=== PATIENT | male | born 1940 | race Caucasian/White ===

== ENCOUNTER 2018-03-31 06:35 | Emergency (ER) | payer OTHER ==
[2018-03-31 07:11] LABS: Absolute Lymphocytes (CBC) 1.4 K/uL (0.7-4.9); Absolute Monocytes 0.5 K/uL (0.1-1.3); Absolute Neutrophil 3.5 K/uL (1.8-8.0); Basophils % 0.5 % (0-1.3); Hematocrit 42.5 % (39.6-49.0); Lymphocytes % 23.4 % (15.3-44.8); MCH 31.4 pg (27.0-35.0); MPV 9.5 fL (7.6-11.3); Monocytes % 8.8 % (3.3-12.3); RBC Red Blood Cell Count 4.68 M/uL (4.33-5.43)
[2018-03-31 07:18] LABS: Potassium 4.8 mmol/L (3.5-5.1)
--- NOTE | 2018-03-31 08:36 | RAD REPORT ---
EXAM DESCRIPTION: CT - Stone Protocol - 03/31/2018 7:08 am CLINICAL HISTORY: Abdominal pain. Dysuria/hematuria COMPARISON: 2014 TECHNIQUE: Computed axial tomography of the abdomen pelvis was obtained without oral or IV contrast. Lack of IV and oral contrast limits evaluation of solid organs, bowel, and vessels. Coronal reformat oriana images were obtained and reviewed. All CT scans are performed using dose optimization technique as appropriate and may include automated exposure control or mA/KV adjustment according to patient size. FINDINGS: A renal calculus is not seen. An ureteral calculus is not noted. A bladder calculus is not present. An 18 millimeter cyst extends off of the left kidney. It contains calcification posteriorly . The bladder is incompletely distended and not well evaluated. The liver, spleen, pancreas and adrenals appear grossly normal There is no evidence of diverticulitis. The appendix appears normal A moderate amount of stool is present throughout the colon. Spondylosis involves lumbar spine resulting in spinal stenosis. Atherosclerotic changes involve the a rteries. A small umbilical hernia is present. Postsurgical changes involve the bowel. The gallbladder has been removed The prostate gland is moderately enlarged. Bilateral inguinal hernias contain fat IMPRESSION: Negative for a genitourinary calculus
[2018-03-31] MEDS ORDERED: CEFTRIAXONE/SWI 1gm 1 GM/10 ML SYR ONE (09:01)
[2018-03-31] MEDS ORDERED: PHENAZOPYRIDINE 100MG TAB PO ONE (09:01)
[2018-03-31 09:30] LABS: Urine Blood 3+ (NEG); Urine Glucose NEGATIVE (NEG); Urine Protein 3+ (NEG); Urine Specific Gravity 1.015 (1.005-1.030); Urine pH >8.5 (5.0-7.0)
--- NOTE | 2018-03-31 09:30 | ER ---
Nurse's Notes [facility] Name: Chan White Age: 78 yrs Sex: Male : 1940 Arrival Date: 03/31/2018 Time: 06:35 Bed 4 Private MD: Diagnosis: Urinary tract infection, site not specified Presentation: 03/31 06:46 Presenting complaint: Patient states: "I woke up this morning and I am having pain and jd3 difficulty urinating. I also notice some frequency and some blood tinged color urine.". Transition of care: patient was not received from another setting of care. Onset of symptoms was March 31, 2018. Risk Assessment: Do you want to hurt yourself or someone else? Patient reports no desire to harm self or others. Initial Sepsis Screen: Does the patient meet any 2 criteria? No. Patient's initial sepsis screen is negative. Does the patient have a suspected source of infection? No. Patient's initial sepsis screen is negative. Care prior to arrival: None. 06:46 Method Of Arrival: Ambulatory jd3 06:46 Acuity: RENY 3 jd3 Historical: - Allergies: 07:01 Morphine; jd3 07:01 PENICILLINS; jd3 - Home Meds: 07:01 allopurinol 300 mg Oral tab 1 tab once daily [Active]; amlodipine 5 mg tab 1 tab once jd3 daily [Active]; aspirin 325 mg Oral tab 1 tab once daily [Active]; atorvastatin 20 mg Oral tab 1 tab once daily [Active]; clopidogrel 75 mg Oral tab 1 tab once daily [Active]; Co Q-10 200 mg Oral cap twice a day [Active]; Fish Oil 100-160-1,000 mg Oral cap daily [Active]; furosemide 20 mg Oral tab 1 tab once daily [Active]; glucosamine-chondroitin 621-327-83-3 mg Oral cap daily [Active]; isosorbide dinitrate 60 mg Oral TbER 1 cap 2 times per day [Active]; levothyroxine 100 mcg tab 1 tab once daily [Active]; lisinopril 20 mg Oral tab 1 tab once daily [Active]; meloxicam 15 mg Oral tab 1 tab once daily [Active]; pantoprazole 40 mg Oral TbEC 1 tab once daily [Active]; Nitrostat 0.4 mg SL subl 1 tab [Active]; Zyrtec 10 mg Oral tab 1 tab once daily [Active]; vitamin P52-rpfap acid 2000 mcg Oral tab once daily [Active]; metoprolol succinate 25 mg oral Tb24 0.5 tab daily [Active]; - PMHx: 07:01 carpal tunnel; Cholelithiasis; doudenal ulcer; Hernia; knee surgery; stroke; TIA; jd3 - PSHx: 07:01 laminectomy; Carpal Tunnel Repair; Angioplasty; coronary bypass; jd3 - Immunization history:: Adult Immunizations up to date. - Social history:: Smoking status: Patient/guardian denies using tobacco, the patient reports quitting approximately 44 years ago. - Ebola Screening: : Patient negative for fever greater than or equal to 101.5 degrees Fahrenheit, and additional compatible Ebola Virus Disease symptoms. Screenin:52 Abuse screen: Denies threats or abuse. Nutritional screening: No deficits noted. jd3 Tuberculosis screening: No symptoms or risk factors identified. Fall Risk Ambulatory Aid- None/Bed Rest/Nurse Assist (0 pts). Gait- Normal/Bed Rest/Wheelchair (0 pts) Mental Status- Oriented to own ability (0 pts). Total Durham Fall Scale indicates No Risk (0-24 pts). Assessment: 06:49 General: Appears uncomfortable, Behavior is calm, cooperative, appropriate for age. jd3 Pain: Quality of pain is described as pain with urination. Neuro: Level of Consciousness is awake, alert, obeys commands, Oriented to person, place, time, situation, Appropriate for age. Cardiovascular: Capillary refill < 3 seconds Patient's skin is warm and dry. Respiratory: Airway is patent Respiratory effort is even, unlabored, Respiratory pattern is regular, symmetrical. GI: Abdomen is round non-distended, Patient currently denies abdominal pain. : Urine is blood tinged, Reports burning with urination, inability to void, urinary frequency. EENT: No signs and/or symptoms were reported regarding the EENT system. Derm: Skin is intact, Skin is dry, Skin is normal, Skin temperature is warm. Musculoskeletal: Circulation, motion, and sensation intact. Range of motion: intact in all extremities. 07:41 Reassessment: Patient appears in no apparent distress at this time. Patient and/or ph family updated on plan of care and expected duration. Pain level reassessed. Patient is alert, oriented x 3, equal unlabored respirations, skin warm/dry/pink. Pt resting quietly, awaiting lab results, VSS, will continue to monitor. 08:40 Reassessment: Patient appears in no apparent distress at this time. Patient and/or ph family updated on plan of care and expected duration. Pain level reassessed. Patient is alert, oriented x 3, equal unlabored respirations, skin warm/dry/pink. Pt resting quietly, ERP at bedside to speak w/ pt about test results. 09:33 Reassessment: Patient appears in no apparent distress at this time. Patient and/or ph family updated on plan of care and expected duration. Pain level reassessed. Patient is alert, oriented x 3, equal unlabored respirations, skin warm/dry/pink. Pt d/c home w/ prescriptions. Vital Signs: 06:48 BP 148 / 97; Pulse 92; Resp 17 S; Temp 97.7(O); Pulse Ox 98% on R/A; Weight 102.06 kg jd3 (R); Height 5 ft. 10 in. (177.80 cm) (R); Pain 0/10; 07:45 BP 133 / 82; Pulse 78; Resp 16; Pulse Ox 99% on R/A; ph 08:41 BP 123 / 78; Pulse 57; Resp 18; Temp 97.5; Pulse Ox 98% on R/A; ph 09:37 BP 127 / 76; Pulse 58; Resp 18; Temp 97.8; Pulse Ox 99% on R/A; ph 06:48 Body Mass Index 32.28 (102.06 kg, 177.80 cm) jd3 ED Course: 06:35 Patient arrived in ED. ds1 06:46 [facility] Palmer [facility]C [facility] kb 06:46 Baron Mike MD is Attending Physician. kb 06:46 Taco Lion RN is Primary Nurse. jd3 06:48 Triage completed. jd3 06:48 Arm band placed on. jd3 06:52 Patient has correct armband on for positive identification. Bed in low position. Call jd3 light in reach. Side rails up X 1. 06:59 Inserted saline lock: 20 gauge in right antecubital area, using aseptic technique. tl2 Blood collected. 07:07 CT completed. Patient tolerated procedure well. Patient moved to CT via wheelchair. jg6 Patient moved back from CT. 07:08 CT Stone Protocol In Process Unspecified. EDMS 09:36 No provider procedures requiring assistance completed. IV discontinued, intact, ph bleeding controlled, No redness/swelling at site. Pressure dressing applied. Administered Medications: 09:02 Drug: Rocephin - (cefTRIAXone) 1 grams Route: IVPB; Infused Over: 30 mins; Site: right ph antecubital; 09:38 Follow up: Response: No adverse reaction; IV Status: Completed infusion ph 09:02 Drug: Pyridium 200 mg Route: PO; ph 09:38 Follow up: Response: No adverse reaction ph Outcome: :30 Discharge ordered by MD. kb 09:37 Discharged to home ambulatory, with significant other. ph 09:37 Condition: good 09:37 Discharge instructions given to patient, Instructed on discharge instructions, follow up and referral plans. medication usage, Demonstrated understanding of instructions, follow-up care, medications, Prescriptions given X 2. 09:39 Patient left the ED. ph Addendum: 04/03/2018 15:32 Addendum: Culture Results: Positive urine culture. No further action required. Bacteria i w sensitive to prescribed antibiotic. Signatures: Dispatcher [employer] EDMS Anna Palmer, COREMAKER MACHINE-C COREMAKER MACHINE-Sade Sanderson ds1 Janice Santillan, NICOLE RIVERA iw Anahy Barnard RN RN ph Knox, Taylor, RN RN tl2 [employer] RN RN jd3 Remi, Maribell jg6
--- NOTE | 2018-03-31 09:30 | EDPHYS ---
Physician Documentation [facility] Name: Chan White Age: 78 yrs Sex: Male : 1940 Arrival Date: 03/31/2018 Time: 06:35 Bed 4 Private MD: ED Physician Baron Mike HPI: 03/31 08:51 This 78 yrs old Male presents to ER via Ambulatory with complaints of Urinary kb Frequency. 08:51 The patient presents with urinary symptoms, dysuria, urinary frequency, hematuria. kb Onset: The symptoms/episode began/occurred this morning. Modifying factors: The symptoms are alleviated by nothing, the symptoms are aggravated by urinating. Associated signs and symptoms: Pertinent positives: dysuria, hematuria, Pertinent negatives: abdominal pain, constipation, diarrhea, fever, nausea, vomiting. Severity of symptoms: At their worst the symptoms were moderate, in the emergency department the symptoms are unchanged. The patient has not experienced similar symptoms in the past. The patient has not recently seen a physician. Historical: - Allergies: 07:01 Morphine; jd3 07:01 PENICILLINS; jd3 - Home Meds: 07:01 allopurinol 300 mg Oral tab 1 tab once daily [Active]; amlodipine 5 mg tab 1 tab once jd3 daily [Active]; aspirin 325 mg Oral tab 1 tab once daily [Active]; atorvastatin 20 mg Oral tab 1 tab once daily [Active]; clopidogrel 75 mg Oral tab 1 tab once daily [Active]; Co Q-10 200 mg Oral cap twice a day [Active]; Fish Oil 100-160-1,000 mg Oral cap daily [Active]; furosemide 20 mg Oral tab 1 tab once daily [Active]; glucosamine-chondroitin 072-617-06-3 mg Oral cap daily [Active]; isosorbide dinitrate 60 mg Oral TbER 1 cap 2 times per day [Active]; levothyroxine 100 mcg tab 1 tab once daily [Active]; lisinopril 20 mg Oral tab 1 tab once daily [Active]; meloxicam 15 mg Oral tab 1 tab once daily [Active]; pantoprazole 40 mg Oral TbEC 1 tab once daily [Active]; Nitrostat 0.4 mg SL subl 1 tab [Active]; Zyrtec 10 mg Oral tab 1 tab once daily [Active]; vitamin E02-hoklo acid 2000 mcg Oral tab once daily [Active]; metoprolol succinate 25 mg oral Tb24 0.5 tab daily [Active]; - PMHx: 07:01 carpal tunnel; Cholelithiasis; doudenal ulcer; Hernia; knee surgery; stroke; TIA; jd3 - PSHx: 07:01 laminectomy; Carpal Tunnel Repair; Angioplasty; coronary bypass; jd3 - Immunization history:: Adult Immunizations up to date. - Social history:: Smoking status: Patient/guardian denies using tobacco, the patient reports quitting approximately 44 years ago. - Ebola Screening: : Patient negative for fever greater than or equal to 101.5 degrees Fahrenheit, and additional compatible Ebola Virus Disease symptoms. ROS: 06:59 Constitutional: Negative for fever, chills, and weight loss, Cardiovascular: Negative kb for chest pain, palpitations, and edema, Respiratory: Negative for shortness of breath, cough, wheezing, and pleuritic chest pain, Abdomen/GI: Negative for abdominal pain, nausea, vomiting, diarrhea, and constipation, MS/Extremity: Negative for injury and deformity, Skin: Negative for injury, rash, and discoloration, Neuro: Negative for headache, weakness, numbness, tingling, and seizure. 06:59 : Positive for urinary symptoms, urinary frequency, small amounts, hematuria, burning with urination, Negative for pelvic pain, flank pain, foul smelling urine, penile discharge, penile pain, testicular pain Exam: 06:59 Constitutional: This is a well developed, well nourished patient who is awake, alert, kb and in no acute distress. Head/Face: Normocephalic, atraumatic. Chest/axilla: Normal chest wall appearance and motion. Nontender with no deformity. No lesions are appreciated. Cardiovascular: Regular rate and rhythm with a normal S1 and S2. No gallops, murmurs, or rubs. Normal PMI, no JVD. No pulse deficits. Respiratory: Lungs have equal breath sounds bilaterally, clear to auscultation and percussion. No rales, rhonchi or wheezes noted. No increased work of breathing, no retractions or nasal flaring. Abdomen/GI: Soft, non-tender, with normal bowel sounds. No distension or tympany. No guarding or rebound. No evidence of tenderness throughout. Skin: Warm, dry with normal turgor. Normal color with no rashes, no lesions, and no evidence of cellulitis. MS/ Extremity: Pulses equal, no cyanosis. Neurovascular intact. Full, normal range of motion. Neuro: Awake and alert, GCS 15, oriented to person, place, time, and situation. Cranial nerves II-XII grossly intact. Motor strength 5/5 in all extremities. Sensory grossly intact. Cerebellar exam normal. Normal gait. Vital Signs: 06:48 BP 148 / 97; Pulse 92; Resp 17 S; Temp 97.7(O); Pulse Ox 98% on R/A; Weight 102.06 kg jd3 (R); Height 5 ft. 10 in. (177.80 cm) (R); Pain 0/10; 07:45 BP 133 / 82; Pulse 78; Resp 16; Pulse Ox 99% on R/A; ph 08:41 BP 123 / 78; Pulse 57; Resp 18; Temp 97.5; Pulse Ox 98% on R/A; ph 09:37 BP 127 / 76; Pulse 58; Resp 18; Temp 97.8; Pulse Ox 99% on R/A; ph 06:48 Body Mass Index 32.28 (102.06 kg, 177.80 cm) jd3 MDM: 06:46 Patient medically screened. kb 06:58 Data reviewed: vital signs, nurses notes. Data interpreted: Pulse oximetry: on room air kb is 98 %. Interpretation: normal. 08:53 Counseling: I had a detailed discussion with the patient and/or guardian regarding: the kb historical points, exam findings, and any diagnostic results supporting the discharge/admit diagnosis, lab results, radiology results, the need for outpatient follow up, a urologist, to return to the emergency department if symptoms worsen or persist or if there are any questions or concerns that arise at home. 09:36 ED course: Pt educated to follow up with Dr Feliz next week. Verbal understanding henry received. . 03/31 06:43 Order name: Urine Microscopic Only; Complete Time: 09:33 gs 03/31 06:48 Order name: CBC with Diff; Complete Time: 07:13 kb 03/31 06:48 Order name: Basic Metabolic Panel; Complete Time: 07:18 kb 03/31 06:48 Order name: CT Stone Protocol; Complete Time: 08:38 kb 03/31 07:25 Order name: Urine Dipstick--Ancillary (enter results); Complete Time: 09:33 mb4 03/31 08:08 Order name: Urine Culture kb 03/31 06:43 Order name: Urine Dipstick-Ancillary (obtain specimen); Complete Time: 06:59 Administered Medications: 09:02 Drug: Rocephin - (cefTRIAXone) 1 grams Route: IVPB; Infused Over: 30 mins; Site: right ph antecubital; 09:38 Follow up: Response: No adverse reaction; IV Status: Completed infusion ph 09:02 Drug: Pyridium 200 mg Route: PO; ph 09:38 Follow up: Response: No adverse reaction ph Disposition: 03/31/18 09:30 Discharged to Home. Impression: Urinary tract infection, site not specified. - Condition is Stable. - Discharge Instructions: Urinary Tract Infection, Adult, [id number]. - Prescriptions for Pyridium 200 mg Oral Tablet - take 1 tablet by ORAL route every 8 hours for 3 days; 9 tablet. Macrobid 100 mg Oral Capsule - take 1 capsule by ORAL route every 12 hours for 10 days; 20 capsule. - Medication Reconciliation Form, Thank You Letter, Antibiotic Education, Prescription Opioid Use form. - Follow up: Emergency Department; When: As needed; Reason: Worsening of condition. Follow up: Private Physician; When: 2 - 3 days; Reason: Recheck today's complaints, Continuance of care, Re-evaluation by your physician. Addendum: 04/03/2018 17:25 Co-signature as Attending Physician, Baron Mike MD. g s Signatures: Dispatcher [employer] [facility] Anna Palmer, DIGITAL OPERATIONS ANALYST-C DIGITAL OPERATIONS ANALYST-Anahy Whitlock RN RN Baron Mike MD MD [employer] RN RN jd3 Corrections: (The following items were deleted from the chart) 03/31 09:39 09:30 03/31/2018 09:30 Discharged to Home. Impression: Urinary tract infection, site ph not specified. Condition is Stable. Discharge Instructions: Urinary Tract Infection, Adult, [id number]. Prescriptions for Pyridium 200 mg Oral Tablet - take 1 tablet by ORAL route every 8 hours for 3 days; 9 tablet, Macrobid 100 mg Oral Capsule - take 1 capsule by ORAL route every 12 hours for 10 days; 20 capsule. and Forms are Medication Reconciliation Form, Thank You Letter, Antibiotic Education, Prescription Opioid Use. Follow up: Emergency Department; When: As needed; Reason: Worsening of condition. Follow up: Private Physician; When: 2 - 3 days; Reason: Recheck today's complaints, Continuance of care, Re-evaluation by your physician. kb
[2018-03-31 09:31] LABS: Urine Bacteria 20-50 /HPF (NONE SEEN); Urine RBC >50 /HPF (NONE SEEN)
[2018-03-31 09:32] LABS: Urine Culture Reflex Order REFLEXED
[2018-03-31 09:48] VITALS: BP 127/76; TEMP 97.8; O2SAT 99
== END 2018-03-31 09:39 | disposition home or self-care (01) ==
LOC: ER 06:35
DX: N39.0 Urinary tract infection, site not specified (principal); Z88.5 Allergy status to narcotic agent; Z88.0 Allergy status to penicillin; Z79.02 Long term (current) use of antithrombotics/antiplatelets; Z86.73 Personal history of transient ischemic attack (TIA), and cerebral infarction without residual deficits; Z79.82 Long term (current) use of aspirin; Z95.1 Presence of aortocoronary bypass graft; Z98.61 Coronary angioplasty status
CPT/HCPCS: 36415; 74176; 76377; 80048; 85025; 87077; 87086; 87088; 87186; 96365; 99284; J0696; 81003; 81015

== ENCOUNTER 2019-07-22 13:36 | Emergency (ER) | payer OTHER ==
--- OUTSIDE RECORDS SUMMARY | 2019-07-22 13:38 | XMS REPORT ---
:1940 [facility] Address [address] [place] [address] [address] [place] [address] Care Team Providers Name Role Phone Unavailable Unavailable Unavailable Problems This patient has no known problems. Allergies, Adverse Reactions, Alerts This patient has no known allergies or adverse reactions. Medications This patient has no known medications.
--- OUTSIDE RECORDS SUMMARY | 2019-07-22 13:38 | XMS REPORT | Summary of Care ---
:1940 Author Organization [facility] - [facility] Address [address] [place] [id number] Care Team Providers Name Role Phone Chan Pires MD Primary Care Provider Reason for Visit Auth/Cert Status Reason Specialty Diagnoses / Procedures Referred By Contact Referred To Contact Surgery Diagnoses Combined forms of age-related cataract, left eye Cataract of the L eye Adc Pre/Pacu/Post Procedures ID REMV CATARACT EXTRACAP,INSERT LENS PHACOEMULSIFICATION OF CATARACT WITH INTRAOCULAR LENS IMPLANT [address] [place] [address] [place] [address] Encounter Details Date Type Department Care Team Description 02/28/2019 Hospital Encounter [facility] MD [address] [place] [address] [place] [address] [place], [place] [phone] Allergies Active Allergy Reactions Severity Noted Date Comments Morphine Unknown - See comments, 06/04/2016 Pain in area of liver Other - See comments Penicillins Unknown - See comments 08/11/2018 Swelling at injection site that lasted for several days documented as of this encounter (statuses as of 03/06/2019) Medications Medication Sig Dispensed Refills Start Date End Date Status allopurinol 300 mg Take 300 mg by 0 Active tablet mouth daily. amLODIPine 5 mg tablet Take 5 mg by 0 Active mouth daily. aspirin 325 mg tablet Take 325 mg by 0 Active mouth daily. atorvastatin 20 mg Take 20 mg by 0 Active tablet mouth at bedtime. clopidogrel 75 mg Take 75 mg by 0 Active tablet mouth daily. Coenzyme Q10 200 mg Cap Take 1 capsule by 0 Active mouth 2 (two) times daily. omega 9-zax-qkc-fish Take 2 capsules 0 Active oil (FISH OIL) by mouth 2 (two) 100-160-1,000 mg Cap times daily. furosemide 20 mg tablet Take 20 mg by 0 Active mouth daily. isosorbide mononitrate Take 60 mg by 0 Active 60 mg 24 hr tablet mouth daily. levothyroxine sodium Take 100 mcg by 0 Active (LEVOTHYROXINE ORAL) mouth daily. lisinopril 20 mg tablet Take 20 mg by 0 Active mouth daily. MECOBALAMIN, VITAMIN Take 1,000 mcg by 0 Active B12, ORAL mouth daily. meloxicam 15 mg tablet Take 15 mg by 0 Active mouth daily. metoprolol succinate XL Take 25 mg by 0 Active 25 mg 24 hr tablet mouth daily. nitroglycerin 0.4 mg/hr Apply 1 Patch to 0 Active patch skin daily. pantoprazole sodium Take 40 mg by 0 Active (PANTOPRAZOLE ORAL) mouth daily. nitroglycerin 0.[address] 0.4 mg 0 Active sublingual tablet under the tongue every 5 (five) minutes as needed for Chest pain. glucosam sul Na/chondr Take 1 tablet by 0 Active (GLUCOSAMINE-CHONDROITI mouth 2 (two) N 3X ORAL) times daily. documented as of this encounter (statuses as of 03/06/2019) Active Problems Problem Noted Date Cataract documented as of this encounter (statuses as of 03/06/2019) Social History Tobacco Use Types Packs/Day Years Used Date Former Smoker Cigarettes 1 40 Smokeless Tobacco: Never Used Comments: Quit 40 years ago Alcohol Use Drinks/Week oz/Week Comments Yes Occasional Drinker Sex Assigned at Date Recorded Not on file Job Start Date Occupation Industry Not on file Not on file Not on file Travel History Travel Start Travel End No recent travel history available. documented as of this encounter Last Filed Vital Signs Vital Sign Reading Time Taken Comments Blood Pressure 131/77 02/28/2019 12:10 PM CDT Pulse 54 02/28/2019 12:10 PM CDT Temperature 36.4 C (97.5 F) 02/28/2019 12:10 PM CDT Respiratory Rate 16 02/28/2019 12:10 PM CDT Oxygen Saturation 97% 02/28/2019 12:10 PM CDT Inhaled Oxygen Concentration - - Weight 104.3 kg (230 lb) 02/26/2019 2:00 PM CDT Height 177.8 cm (5' 10") 02/26/2019 2:00 PM CDT Body Mass Index 33 02/26/2019 2:00 PM CDT documented in this encounter Discharge Instructions Jelena Singh RN - 02/28/2019CATARACT DISCHARGE INSTRUCTIONS 1. DO NOT Remove the eye patch. Leave on until you post-operative visit tomorrow. Keep it dry. 2. Activities as tolerated 3. Please no heavy lifting, and do not drive or operate machinery until you are seen by a doctor on your first post op day. 4. Your depth perception may be off, so walk a little slower. Be careful on steps or stairs and uneven ground and go slower around corners. 5. Most likely your eye will stay numb until tomorrow and you should not experience any extreme pain. However, if you should have bad pain or nausea, please call the doctor's office or hospital grinder operator automatic to get in touch with doctor. 6. For mild discomfort or a headache, you may take Tylenol, Aspirin, or Ibuprofen (in not allergic). 7. You may resume your pre-operative diet. 8. If you have any further questions or concerns, please call the office or hospital grinder operator automatic to getin touch with the doctor. documented in this encounter Plan of Treatment Health Maintenance Due Date Last Done Comments DTaP,Tdap,and Td Vaccines (1 - Tdap) 01/26/1960 Zoster Recombinant Vaccine (SHINGRIX) (1 of 2) 1991 LUNG CANCER SCREEN: Recommended for age 55-80 with 30 + 01/26/1996 pack year history Medicare Wellness Visit 2006 PNEUMOCOCCAL VACCINES 65+ (1 of 2 - PCV13) 2006 INFLUENZA VACCINE 04/08/2019 documented as of this encounter Implants Implanted Type Area Planer Stone Device Shelf Model / Identifier Expiration Date Serial / Lot Lens, Dominic #[id number] - [id number] LENS Right: Dominic 08/07/2023 [id number] / Implanted: Qty: 1 on 12/27/2018 by Dylan Chester MD at [facility] Eye [id number] / N/A Lens, Dominic #[id number] - [id number] LENS Left: Eye Dominic 10/06/2023 [id number] / Implanted: Qty: 1 on 02/28/2019 by Dylna Chester MD at [facility] [id number] / N/A documented as of this encounter Procedures Procedure Name Priority Date/Time Associated Comments Diagnosis PHACOEMULSIFICATION OF Level 5 (greater 02/28/2019 11:02 SAME CATARACT WITH INTRAOCULAR than 5 days) AM CDT LENS IMPLANT DAY SURGERY - ADC Routine 02/28/2019 12:01 AM CDT PATIENT QUESTIONNAIRE Routine 02/28/2019 12:01 AM CDT CONSENT/REFUSAL FOR Routine 02/26/2019 3:01 DIAGNOSIS AND TREATMENT PM CDT CONSENT/REFUSAL FOR Routine 02/26/2019 2:59 DIAGNOSIS AND TREATMENT PM CDT ASSIGNMENT OF BENEFITS Routine 02/26/2019 2:59 PM CDT ASSIGNMENT OF BENEFITS Routine 02/26/2019 2:58 PM CDT PHYSICIAN ORDERS Routine 02/26/2019 12:01 AM CDT documented in this encounter Results Not on filedocumented in this encounter Visit Diagnoses Diagnosis Cataract, nuclear sclerotic senile, left - Primary documented in this encounter Administered Medications Medication Order MAR Action Action Date Dose Rate Site balanced salt irrig soln Given 02/28/2019 11:30 AM CDT 500 mL Left Eye comb1 (BSS PLUS) ophthalmic solution 500 mL bag PRN, Starting Tue02/28/19 at 1023, Until Discontinued, Routine, Intra-op bupivacaine (preserv free) (SENSORCAINE Given 02/28/2019 11:20 AM CDT 5 mL Left Eye MPF) 0.75 % (7.5 mg/mL) injection PRN, Starting Tue02/28/19 at 1023, Until Discontinued, Routine, Intra-op carbachol (MIOSTAT) 0.01 % Given 02/28/2019 11:35 AM CDT 0.5 mL Left Eye intraocular injection PRN, Starting Tue02/28/19 at 1024, Until Discontinued, Routine, Intra-op ceFAZolin (ANCEF) injection Given 02/28/2019 11:42 AM CDT 0.02 mg Left Eye PRN, Starting Tue02/28/19 at 1024, Until Discontinued, URIEL, Intra-op dexamethasone (DECADRON PHOSPHATE) Given 02/28/2019 11:42 AM CDT 0.3 mL Left Eye injection PRN, Starting Tue02/28/19 at 1024, Until Discontinued, Routine, Intra-op DUOVISC (DUOVISC VISCO ELASTIC) 3 %-4 Given 02/28/2019 11:40 AM CDT 1 Kit Left Eye %(0.5 mL) 1 % (0.55 mL) intraocular injection PRN, Starting Tue02/28/19 at 1024, Until Discontinued, Routine, Intra-op EPINEPHrine 1:1,000 (1 mg/mL) Given 02/28/2019 11:30 AM CDT 0.5 mg Left Eye (ADRENALIN) injection PRN, Starting Tue02/28/19 at 1024, Until Discontinued, Routine, Intra-op gentamicin injection Given 02/28/2019 11:42 AM CDT 0.2 mL Left Eye PRN, Starting Tue02/28/19 at 1025, Until Discontinued, URIEL, Intra-op Hyaluronidase, Human Recomb. Given 02/28/2019 11:20 AM CDT 150 Units Left Eye (HYLENEX) injection PRN, Starting Tue02/28/19 at 1025, Until Discontinued, Routine, Intra-op lidocaine-epinephrine (XYLOCAINE Given 02/28/2019 11:20 AM CDT 5 mL Left Eye W/EPINEPHRINE) 2 %-1:200,000 injection PRN, Starting Tue02/28/19 at 1026, Until Discontinued, Routine, Intra-op fsufdeki-twdekxvfr-pctqffqxouton Given 02/28/2019 11:42 0.5 Inches Left Eye (MAXITROL) 3.5 mg/g-10,000 unit/g-0.1 % AM CDT ophthalmic ointment PRN, Starting Tue02/28/19 at 1027, Until Discontinued, Routine, Intra-op sodium chloride (NS) injection Given 02/28/2019 11:42 AM CDT 10 mL Left Eye PRN, Starting Tue02/28/19 at 1027, Until Discontinued, Routine, Intra-op water for irrigation irrigation Given 02/28/2019 11:25 AM CDT 30 mL Left Eye solution PRN, Starting Tue02/28/19 at 1027, Until Discontinued, Routine, Intra-op Medication Order MAR Action Action Date Dose Rate Site lactated ringers IV infusion New Bag 02/28/2019 9:22 AM CDT 500 mL 20 mL/ hr 500 mL at 20 mL/hr, 500 mL, IV Infusion, ONCE, 1 dose, Tue02/28/19 at 0915, Routine, DSU Pre-op mydriatic #5 ophthalmic solution 0.5 mL Given 02/28/2019 10:35 AM CDT 0.5 mL syringe 0.5 mL, Left Eye, ONCE, 1 dose, Tue02/28/19 at 1000, Routine, DSU Pre-op documented in this encounter Insurance Payer Benefit Plan / Subscriber ID Effective Dates Phone Address Type Group MEDICARE MEDICARE PART A xxxxxxxxxxx 2006-Sushila [phone] [id number] NAZ [place]ERRER[place] [id number] [employer] A[employer] INDEMNITY [id number] 2013-Sushila [address] [place] [id number] documented as of this encounter
[2019-07-22 14:34] LABS: Absolute Lymphocytes (CBC) 1.5 K/uL (0.7-4.9); Basophils % 0.5 % (0-1.3); Lymphocytes % 22.6 % (15.3-44.8); MPV 9.5 fL (7.6-11.3); RBC Red Blood Cell Count 4.39 M/uL (4.33-5.43)
[2019-07-22 14:40] LABS: Protime INR 1.08
[2019-07-22 14:53] LABS: Albumin 3.5 g/dL (3.4-5.0); Bilirubin Direct 0.3 mg/dL (0-0.2); Bilirubin Total 0.7 mg/dL (0.2-1.0); Magnesium 2.2 mg/dL (1.8-2.4); Potassium 3.7 mmol/L (3.5-5.1); Protein, Total 6.6 g/dL (6.4-8.2)
[2019-07-22 14:57] LABS: Troponin (Emerg Dept Use Only) 1.9 ng/mL (0.0-0.045)
[2019-07-22] MEDS ORDERED: HEPARIN 5000 UNIT/ML 1 ML VIAL ONE (15:39)
--- NOTE | 2019-07-22 15:39 | ER ---
Nurse's Notes [facility] Name: Chan White Age: 79 yrs Sex: Male : 1940 Arrival Date: 07/22/2019 Time: 13:37 Bed 20 Private MD: Chan Pires Diagnosis: Acute coronary syndrome Presentation: 07/22 13:41 Presenting complaint: Patient states: Chest pressure started 2 days ago, burping helps, jl7 I'm going out of town and I need to know before I go off if this is something or not. Just had a stress test and an ECHO in [place] on . Transition of care: patient was not received from another setting of care. Onset of symptoms was July 20, 2019. Risk Assessment: Do you want to hurt yourself or someone else? Patient reports no desire to harm self or others. Initial Sepsis Screen: Does the patient meet any 2 criteria? No. Patient's initial sepsis screen is negative. Does the patient have a suspected source of infection? No. Patient's initial sepsis screen is negative. Care prior to arrival: None. 13:41 Method Of Arrival: Ambulatory [facility] 13:41 Acuity: RENY 3 jl7 Triage Assessment: 13:45 General: Appears in no apparent distress. uncomfortable, Behavior is calm, cooperative, jl7 appropriate for age. Pain: Complains of pain in chest Pain currently is 4 out of 10 on a pain scale. Quality of pain is described as pressure, Pain began 2-3 days ago. Is continuous. Cardiovascular: Patient's skin is warm and dry. Historical: - Allergies: 13:45 Morphine; jl7 13:45 PENICILLINS; jl7 - Home Meds: 13:45 clopidogrel 75 mg Oral tab 1 tab once daily [Active]; meloxicam 15 mg Oral tab 1 tab jl7 once daily [Active]; levothyroxine 100 mcg tab 1 tab once daily [Active]; metoprolol succinate 25 mg Oral Tb24 0.5 tab daily [Active]; pantoprazole 40 mg Oral TbEC 1 tab once daily [Active]; isosorbide dinitrate 60 mg Oral TbER 1 cap 2 times per day [Active]; atorvastatin 20 mg Oral tab 1 tab once daily [Active]; allopurinol 300 mg Oral tab 1 tab once daily [Active]; lisinopril 20 mg Oral tab 1 tab once daily [Active]; amlodipine 5 mg tab 1 tab once daily [Active]; furosemide 20 mg Oral tab 1 tab once daily [Active]; Nitrostat 0.4 mg SL subl 1 tab [Active]; - PMHx: 13:45 carpal tunnel; Cholelithiasis; doudenal ulcer; Hernia; knee surgery; stroke; TIA; jl7 - PSHx: 13:45 laminectomy; Carpal Tunnel Repair; Angioplasty; coronary bypass; jl7 - Immunization history:: Adult Immunizations up to date. - Social history:: Smoking status: Patient/guardian denies using tobacco. - Ebola Screening: : No symptoms or risks identified at this time. Screenin:17 Abuse screen: Denies threats or abuse. Denies injuries from another. Nutritional bp screening: No deficits noted. Tuberculosis screening: No symptoms or risk factors identified. Fall Risk None identified. Assessment: 13:45 General: SEE TRIAGE NOTE. bp 15:00 Reassessment: LABS GROSSLY ABNORMAL, ADMIT PENDING. 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 16:27 Reassessment: REPORT TO MIKAYLA RIVERA AT [facility], TRANSPORT PENDING. bp 17:09 Reassessment: EMS AT B/S FOR TRANSPORT. bp Vital Signs: 13:45 BP 106 / 64; Pulse 73; Resp 16 S; Temp 98.1(O); Pulse Ox 96% on R/A; Weight 99.79 kg jl7 (R); Height 5 ft. 10 in. (177.80 cm) (R); Pain 4/10; 15:04 BP 108 / 65; Pulse 63; Resp 17; Temp 97.8(TE); Pulse Ox 97% on R/A; mh5 16:13 BP 131 / 72; Pulse 60; Resp 13; Temp 97.5(TE); Pulse Ox 97% ; mh5 17:00 BP 126 / 78; Pulse 55; Resp 11; Pulse Ox 100% ; bp 13:45 Body Mass Index 31.57 (99.79 kg, 177.80 cm) jl7 ED Course: 13:37 Patient arrived in ED. am2 13:37 Chan Pires MD is Private Physician. am2 13:42 Triage completed. jl7 13:45 Arm band placed on right wrist. jl7 13:48 Moshe Langford, RETAIL ASSISTANT is PHCP. pm1 13:48 Stephen Manuel MD is Attending Physician. pm1 13:51 Gilmer Christopher, NICOLE is Primary Nurse. bp 14:15 Inserted saline lock: 22 gauge in right forearm, using aseptic technique. Blood bp collected. 14:17 Patient has correct armband on for positive identification. Placed in gown. Bed in low bp position. Call light in reach. Side rails up X2. monitoring coordinator on. Pulse ox on. NIBP on. 14:36 XRAY Chest (1 view) In Process Unspecified. EDMS 16:00 Inserted saline lock: 20 gauge in right forearm, using aseptic technique. Patient bp maintains SpO2 saturation greater than 95% on room air. 17:10 No provider procedures requiring assistance completed. Patient transferred, IV remains bp in place. Administered Medications: 15:18 CANCELLED (Physician Discretion): Aspirin 325 mg PO once bp 15:30 Drug: Nitrostat 0.4 mg Route: Sublingual; bp 15:30 Drug: Metoprolol 25 mg Route: PO; bp 16:18 Follow up: Response: No adverse reaction bp 15:31 Not Given (Physician Discretion): Lovenox 1 mg/kg Sub-Q once pm1 15:35 Drug: Nitrostat 0.4 mg Route: Sublingual; bp 15:40 Drug: Nitrostat 0.4 mg Route: Sublingual; bp 16:19 Follow up: Response: No adverse reaction; Marked relief of symptoms bp 15:53 Drug: Heparin (MN Drip) 12 units/kg/hr - (HEParin 03278 units, D5W 500 ml) bp {Co-Signature: aj1 (Kristi Chester RN).} Route: IV; Rate: calculated rate; Site: right forearm; 16:18 Follow up: IV Status: Infusion continued upon transfer bp 15:54 Drug: Heparin (MN-Bolus No thrombolytic) - HEParin 60 units/kg {Co-Signature: swathi bp (Kristi Chester RN).} Route: IVP; Site: right forearm; 16:17 Follow up: Response: No adverse reaction bp 16:20 Drug: Nitro-Bid Ointment 2 % 1 inches Route: Transdermal; Site: anterior chest wall; bp Outcome: 15:38 ER care complete, transfer ordered by pm1 17:10 Transferred by ground EMS to [facility], Transfer form completed. bp 17:10 Condition: stable 17:10 Instructed on the need for transfer. 17:12 Patient left the ED. bp Signatures: Dispatcher [employer] EDMS Moshe Langford NP RETAIL ASSISTANT pm1 Minerva Shabazz 5 Jose Hendrix RN RN jl7 Jelena Minor 2 Gilmer Christopher RN RN bp Kristi Chester RN aj1
--- NOTE | 2019-07-22 15:39 | EDPHYS ---
Physician Documentation [facility] Name: Chan White Age: 79 yrs Sex: Male : 1940 Arrival Date: 07/22/2019 Time: 13:37 Bed 20 Private MD: Chan Pires ED Physician Stephen Manuel HPI: 07/22 13:49 This 79 yrs old Male presents to ER via Ambulatory with complaints of Chest pm1 Pressure. 13:49 The patient or guardian reports chest pain that is located primarily in the substernal pm1 area. Onset: 2 day(s) ago. The pain does not radiate. Associated signs and symptoms: Pertinent negatives: abdominal pain, cough, headache, nausea, palpitations, shortness of breath, vomiting. The chest pain is described as a pressure. Duration: The patient or guardian reports a single episode, that is still ongoing. Modifying factors: The symptoms are alleviated by relieved with burping. Relief lasts about 5 minutes. Severity of pain: in the emergency department the pain is unchanged is a 4 / 10. Had stress test and ECHO on . Does not know the results. At the time of test patient without any chest pain equivalents. Patient has not taken any of his nitro at home for this pain. Historical: - Allergies: 13:45 Morphine; jl7 13:45 PENICILLINS; jl7 - Home Meds: 13:45 clopidogrel 75 mg Oral tab 1 tab once daily [Active]; meloxicam 15 mg Oral tab 1 tab jl7 once daily [Active]; levothyroxine 100 mcg tab 1 tab once daily [Active]; metoprolol succinate 25 mg Oral Tb24 0.5 tab daily [Active]; pantoprazole 40 mg Oral TbEC 1 tab once daily [Active]; isosorbide dinitrate 60 mg Oral TbER 1 cap 2 times per day [Active]; atorvastatin 20 mg Oral tab 1 tab once daily [Active]; allopurinol 300 mg Oral tab 1 tab once daily [Active]; lisinopril 20 mg Oral tab 1 tab once daily [Active]; amlodipine 5 mg tab 1 tab once daily [Active]; furosemide 20 mg Oral tab 1 tab once daily [Active]; Nitrostat 0.4 mg SL subl 1 tab [Active]; - PMHx: 13:45 carpal tunnel; Cholelithiasis; doudenal ulcer; Hernia; knee surgery; stroke; TIA; jl7 - PSHx: 13:45 laminectomy; Carpal Tunnel Repair; Angioplasty; coronary bypass; jl7 - Immunization history:: Adult Immunizations up to date. - Social history:: Smoking status: Patient/guardian denies using tobacco. - Ebola Screening: : No symptoms or risks identified at this time. ROS: 13:49 Constitutional: Negative for fever, chills, and weight loss, Eyes: Negative for injury, pm1 pain, redness, and discharge, ENT: Negative for injury, pain, and discharge, Neck: Negative for injury, pain, and swelling. 13:49 Respiratory: Negative for shortness of breath, cough, wheezing, and pleuritic chest pain, Abdomen/GI: Negative for abdominal pain, nausea, vomiting, diarrhea, and constipation, Back: Negative for injury and pain, MS/Extremity: Negative for injury and deformity, Skin: Negative for injury, rash, and discoloration. 13:49 Neuro: Negative for headache, weakness, numbness, tingling, and seizure. 13:49 Cardiovascular: Positive for chest pain, of the mid-sternal area, Negative for edema, orthopnea, palpitations. Exam: 13:49 Constitutional: This is a well developed, well nourished patient who is awake, alert, pm1 and in no acute distress. Head/Face: Normocephalic, atraumatic. Neck: Trachea midline, no thyromegaly or masses palpated, and no cervical lymphadenopathy. Supple, full range of motion without nuchal rigidity, or vertebral point tenderness. No Meningismus. Chest/axilla: Normal chest wall appearance and motion. Nontender with no deformity. No lesions are appreciated. Cardiovascular: Regular rate and rhythm with a normal S1 and S2. No gallops, murmurs, or rubs. Normal PMI, no JVD. No pulse deficits. Respiratory: Lungs have equal breath sounds bilaterally, clear to auscultation and percussion. No rales, rhonchi or wheezes noted. No increased work of breathing, no retractions or nasal flaring. Abdomen/GI: Soft, non-tender, with normal bowel sounds. No distension or tympany. No guarding or rebound. No evidence of tenderness throughout. Back: No spinal tenderness. No costovertebral tenderness. Full range of motion. Skin: Warm, dry with normal turgor. Normal color with no rashes, no lesions, and no evidence of cellulitis. MS/ Extremity: Pulses equal, no cyanosis. Neurovascular intact. Full, normal range of motion. 13:49 Neuro: Orientation: is normal, Mentation: is normal, Motor: is normal, moves all fours, Sensation: is normal, no obvious gross deficits. Vital Signs: 13:45 BP 106 / 64; Pulse 73; Resp 16 S; Temp 98.1(O); Pulse Ox 96% on R/A; Weight 99.79 kg jl7 (R); Height 5 ft. 10 in. (177.80 cm) (R); Pain 4/10; 15:04 BP 108 / 65; Pulse 63; Resp 17; Temp 97.8(TE); Pulse Ox 97% on R/A; mh5 16:13 BP 131 / 72; Pulse 60; Resp 13; Temp 97.5(TE); Pulse Ox 97% ; mh5 17:00 BP 126 / 78; Pulse 55; Resp 11; Pulse Ox 100% ; bp 13:45 Body Mass Index 31.57 (99.79 kg, 177.80 cm) jl7 MDM: 13:49 Patient medically screened. [facility] 15:15 Data reviewed: vital signs. Data interpreted: Pulse oximetry: on room air is 97 %. pm1 Interpretation: normal. 15:20 Counseling: I had a detailed discussion with the patient and/or guardian regarding: the pm1 historical points, exam findings, and any diagnostic results supporting the discharge/admit diagnosis, lab results, radiology results, the need for further work-up and treatment in the hospital. 15:20 ED course: Patient requests transfer to [facility] for treatment under his pm1 car hop Dr. Timothy Hudson. 15:30 Physician consultation: Timothy Hudson MD was called at 15:20, was contacted at 15:30, pm1 regarding regarding transfer, patient's condition, and will see patient would like medications started, heparin. 16:09 ED course: Patient's pain 0-1/10 with SL Nitro x 2. Will apply nitro paste to patient. pm1 07/22 13:49 Order name: Basic Metabolic Panel; Complete Time: 15:04 pm1 07/22 13:49 Order name: CBC with Diff; Complete Time: 14:35 pm1 07/22 13:49 Order name: LFT's; Complete Time: 15:04 pm1 07/22 13:49 Order name: Magnesium; Complete Time: 15:04 pm1 07/22 13:49 Order name: NT PRO-BNP; Complete Time: 15:04 pm1 07/22 13:49 Order name: PT-INR; Complete Time: 14:51 pm1 07/22 13:49 Order name: Troponin (emerg Dept Use Only); Complete Time: 15:04 pm1 07/22 13:49 Order name: XRAY Chest (1 view); Complete Time: 16:22 pm1 07/22 15:40 Order name: Ptt, Activated; Complete Time: 16:02 pm1 07/22 13:49 Order name: EKG; Complete Time: 13:50 pm1 07/22 13:49 Order name: Cardiac monitoring; Complete Time: 14:00 pm1 07/22 13:49 Order name: EKG - Nurse/Tech; Complete Time: 14:00 pm1 07/22 13:49 Order name: IV Saline Lock; Complete Time: 14:18 pm1 07/22 13:49 Order name: Labs collected and sent; Complete Time: 14:18 pm1 07/22 13:49 Order name: O2 Per Protocol; Complete Time: 14:00 pm1 07/22 13:49 Order name: O2 Sat Monitoring; Complete Time: 14:00 pm1 Administered Medications: 15:18 CANCELLED (Physician Discretion): Aspirin 325 mg PO once bp 15:30 Drug: Nitrostat 0.4 mg Route: Sublingual; bp 15:30 Drug: Metoprolol 25 mg Route: PO; bp 16:18 Follow up: Response: No adverse reaction bp 15:31 Not Given (Physician Discretion): Lovenox 1 mg/kg Sub-Q once pm1 15:35 Drug: Nitrostat 0.4 mg Route: Sublingual; bp 15:40 Drug: Nitrostat 0.4 mg Route: Sublingual; bp 16:19 Follow up: Response: No adverse reaction; Marked relief of symptoms bp 15:53 Drug: Heparin (NV Drip) 12 units/kg/hr - (HEParin 15563 units, D5W 500 ml) bp {Co-Signature: aj1 (Kristi Henrik RN).} Route: IV; Rate: calculated rate; Site: right forearm; 16:18 Follow up: IV Status: Infusion continued upon transfer bp 15:54 Drug: Heparin (NV-Bolus No thrombolytic) - HEParin 60 units/kg {Co-Signature: aj1 bp (Kristi Chester RN).} Route: IVP; Site: right forearm; 16:17 Follow up: Response: No adverse reaction bp 16:20 Drug: Nitro-Bid Ointment 2 % 1 inches Route: Transdermal; Site: anterior chest wall; bp Disposition: 07/23 10:29 Co-signature as Attending Physician, Stephen Manuel MD I agree with the assessment and [facility] plan of care. Disposition: 07/22/19 15:38 Transfer ordered to [facility]. Diagnosis is Acute coronary syndrome. - Reason for transfer: Higher level of care. - Accepting physician is Timothy Hudson. - Condition is Stable. - Problem is new. - Symptoms have improved. Signatures: Dispatcher [employer] EDMS Stephen Manuel MD MD cha Marinas, Patrick, DATE PITTER DATE PITTER pm1 Jose Hendrix, RN RN jl7 Gilmer Christopher, NICOLE RN bp Kristi Chester RN aj1 Corrections: (The following items were deleted from the chart) 07/22 15:18 15:06 Aspirin 325 mg PO once ordered. pm1 bp 17:12 15:38 07/22/2019 15:38 Transfer ordered to [facility]. Diagnosis is bp Acute coronary syndrome. Reason for transfer: Higher level of care. Accepting physician is Timothy Hudson. Condition is Stable. Problem is new. Symptoms have improved. pm1
[2019-07-22] MEDS ORDERED: NITROGLYCERIN 0.4 MG/TAB SL ONE (15:40)
[2019-07-22] MEDS ORDERED: HEPARIN/D5W 25,000 UNIT/500 ML BAG IV ONE (15:40)
[2019-07-22] MEDS ORDERED: METOPROLOL TAR 25 MG TAB ONE (15:40)
--- NOTE | 2019-07-22 16:17 | RAD REPORT ---
EXAM DESCRIPTION: RAD - Chest Single View - 07/22/2019 2:36 pm CLINICAL HISTORY: Chest pain COMPARISON: June 2016 TECHNIQUE: AP portable chest image was obtained 1408 hours . FINDINGS: No peripheral mass or consolidation. Lung markings are not substantially different from co mparison. Sternotomy wires in place. Heart and vasculature are normal. No measurable pleural effusion and no pneumothorax. No acute bony abnormality seen. No acute aortic findings suspected. IMPRESSION: No acute cardiopulmonary process. No significant change from comparison.
[2019-07-22] MEDS ORDERED: NITROGLYCERIN 1 GM PKT TD ONE (16:34)
[2019-07-22 17:25] VITALS: TEMP 97.5
[2019-07-22 17:27] VITALS: BP 126/78; O2SAT 100
--- NOTE | 2019-07-23 07:44 | EKG ---
Test Date: 2019-07-22 Test Time: 14:04:42 Aircrewman: STEPHANIE MEASUREMENT RESULTS: Intervals: Rate: 68 RI: 200 QRSD: 94 QT: 458 QTc: 487 [place]: P: 7 RI: 200 QRS: 5 T: -13 INTERPRETIVE STATEMENTS: Sinus rhythm with occasional premature ventricular complexes ST & T wave abnormality, consider lateral ischemia Prolonged QT Abnormal ECG Compared to ECG 06/14/2016 09:30:11 Ventricular premature complex(es) now present ST (T wave) deviation now present Possible ischemia now present Prolonged QT interval now present Sinus bradycardia no longer present First degree AV block no longer present Myocardial infarct finding no longer present Electronically Signed On 07-23-19 07:42:55 MANAGER PROCESS EXCELLENCE by Jeremías Young
== END 2019-07-22 17:12 | disposition short-term general hospital (02) ==
LOC: ER 13:36
DX: I24.9 Acute ischemic heart disease, unspecified (principal); Z86.73 Personal history of transient ischemic attack (TIA), and cerebral infarction without residual deficits; Z95.1 Presence of aortocoronary bypass graft; Z88.0 Allergy status to penicillin; Z88.5 Allergy status to narcotic agent
CPT/HCPCS: 96365; 93005; 85025; 80048; 36415; 83735; 85610; 80076; 85730; 84484; 83880; 71045; 99285; J1644

== ENCOUNTER 2019-10-24 21:08 | Observation (INO) | payer OTHER ==
--- OUTSIDE RECORDS SUMMARY | 2019-10-24 21:11 | XMS REPORT ---
:1940 Author Organization [facility] Address [address] [place] [address] [address] [place] [address] Care Team Providers Name Role Phone Unavailable Unavailable Unavailable Problems This patient has no known problems. Allergies, Adverse Reactions, Alerts This patient has no known allergies or adverse reactions. Medications This patient has no known medications.
--- OUTSIDE RECORDS SUMMARY | 2019-10-24 21:12 | XMS REPORT | Summary of Care ---
:1940 Author Organization [facility] Address [address] [place] [id number] Care Team Providers Name Role Phone Chan Pires MD Primary Care Provider Reason for Visit Reason Comments Pain Pain on RT side X 3 days Abdominal Pain Encounter Details Date Type Department Care Team Description 08/29/2019 Office Visit [facility] Family Chan Pires Right flank pain Medicine - Jonnie Tariq MD (Primary Dx) [address] [place] [address] [place] [id number] [phone] Allergies Active Allergy Reactions Severity Noted Date Comments Morphine Unknown - See comments, 06/04/2016 Pain in area of liver Other - See comments Penicillins Unknown - See comments 08/11/2018 Swelling at injection site that lasted for several days documented as of this encounter (statuses as of 08/29/2019) Medications Medication Sig Dispensed Refills Start Date End Date Status allopurinol 300 mg Take 300 mg by 0 Active tablet mouth daily. amLODIPine 5 mg Take 5 mg by 0 Active tablet mouth daily. aspirin 325 mg Take 325 mg by 0 Active tablet mouth daily. atorvastatin 20 mg Take 20 mg by 0 Active tablet mouth at bedtime. clopidogrel 75 mg Take 75 mg by 0 Active tablet mouth daily. Coenzyme Q10 200 mg Take 1 capsule 0 Active Cap by mouth 2 (two) times daily. omega 5-dfd-ejr-fish Take 2 0 Active oil (FISH OIL) capsules by 100-160-1,000 mg Cap mouth 2 (two) times daily. furosemide 20 mg Take 20 mg by 0 Active tablet mouth daily. isosorbide Take 60 mg by 0 Active mononitrate 60 mg 24 mouth daily. hr tablet levothyroxine sodium Take 100 mcg 0 Active (LEVOTHYROXINE ORAL) by mouth daily. lisinopril 20 mg Take 20 mg by 0 Active tablet mouth daily. MECOBALAMIN, VITAMIN Take 1,000 mcg 0 Active B12, ORAL by mouth daily. meloxicam 15 mg Take 15 mg by 0 Active tablet mouth daily. metoprolol succinate Take 25 mg by 0 Active XL 25 mg 24 hr mouth daily. tablet pantoprazole sodium Take 40 mg by 0 Active (PANTOPRAZOLE ORAL) mouth daily. nitroglycerin 0.[address] 0.4 mg 0 Active sublingual tablet under the tongue every 5 (five) minutes as needed for Chest pain. glucosam sul Take 1 tablet 0 Active Na/chondr by mouth 2 (GLUCOSAMINE-CHONDRO (two) times ITIN 3X ORAL) daily. montelukast 10 mg Take 1 tablet 30 tablet 5 07/11/2019 Active tabletIndications: by mouth Seasonal allergies daily. magnesium oxide 400 TAKE 1 TABLET 0 07/26/2019 Active mg (241.3 mg (400 MG TOTAL) magnesium) tablet BY MOUTH DAILY FOR 30 DAYS. tiZANidine 4 mg Take 1 capsule 30 capsule 0 08/29/2019 Active capsuleIndications: by mouth 3 Right flank pain (three) times daily as needed for Muscle Spasms. azithromycin 500 mg Take 1 tablet 3 tablet 0 07/03/2019 Discontinued tabletIndications: by mouth 0 Rhinosinusitis daily. documented as of this encounter (statuses as of 08/29/2019) Active Problems Problem Noted Date Cataract documented as of this encounter (statuses as of 08/29/2019) Social History Tobacco Use Types Packs/Day Years [...] Sign Reading Time Taken Comments Blood Pressure 107/62 08/29/2019 1:59 PM [employer] Pulse 60 08/29/2019 1:59 PM [employer] Temperature 36.4 C (97.5 F) 08/29/2019 1:59 PM [employer] Respiratory Rate - - Oxygen Saturation - - Inhaled Oxygen Concentration - - Weight 102.5 kg (226 lb) 08/29/2019 1:59 PM [employer] Height 177.8 cm (5' 10") 08/29/2019 1:59 PM [employer] Body Mass Index 32.43 08/29/2019 1:59 PM [employer] documented in this encounter Progress Notes Chan Pires MD - 08/29/2019 2:00 PM CST CC: right flank and upper abdominal pain Chan is a 79 year old male Flank Pain Pain location: R flank and RUQ Pain quality: aching and pressure Pain severity: Mild Timing: Constant Relieved by: Nothing Associated symptoms: flatus Associated symptoms: no chills, no constipation, no diarrhea, no dysuria and no hematuria Allergies Allergen Reactions Morphine Unknown - See comments and Other - See comments Pain in area of liver Pcn [Penicillins] Unknown - See comments Swelling at injection site that lasted for several days Current Outpatient Medications Medication Sig Dispense Refill magnesium oxide 400 mg (241.3 mg magnesium) tablet TAKE 1 TABLET (400 MG TOTAL) BY MOUTH DAILY FOR 30 DAYS. montelukast 10 mg tablet Take 1 tablet by mouth daily. 30 tablet 5 glucosam sul Na/chondr (GLUCOSAMINE-CHONDROITIN 3X ORAL) Take 1 tablet by mouth 2 (two) times daily. nitroglycerin 0.[address] 0.4 mg under the tongue every 5 (five) minutes as needed for Chest pain. allopurinol 300 mg tablet Take 300 mg by mouth daily. amLODIPine 5 mg tablet Take 5 mg by mouth daily. aspirin 325 mg tablet Take 325 mg by mouth daily. atorvastatin 20 mg tablet Take 20 mg by mouth at bedtime. clopidogrel 75 mg tablet Take 75 mg by mouth daily. Coenzyme Q10 200 mg Cap Take 1 capsule by mouth 2 (two) times daily. furosemide 20 mg tablet Take 20 mg by mouth daily. isosorbide mononitrate 60 mg 24 hr tablet Take 60 mg by mouth daily. levothyroxine sodium (LEVOTHYROXINE ORAL) Take 100 mcg by mouth daily. lisinopril 20 mg tablet Take 20 mg by mouth daily. MECOBALAMIN, VITAMIN B12, ORAL Take 1,000 mcg by mouth daily. meloxicam 15 mg tablet Take 15 mg by mouth daily. metoprolol succinate XL 25 mg 24 hr tablet Take 25 mg by mouth daily. omega 1-yzq-xtg-fish oil (FISH OIL) 100-160-1,000 mg Cap Take 2 capsules by mouth 2 (two) times daily. pantoprazole sodium (PANTOPRAZOLE ORAL) Take 40 mg by mouth daily. No current facility-administered medications for this visit. Past Medical History: Diagnosis Date Arthritis CAD (coronary artery disease) Cataract CVA (cerebral vascular accident) Gout High cholesterol HTN (hypertension) Thyroid disease TIA (transient ischemic attack) Vertigo Pt gets vertigo when laying on left side Past Surgical History: Procedure Laterality Date ANGIOPLASTY x 7 last one in 2012 ARTHROSCOPY OF JOINT UNLISTED BACK SURGERY CHOLECYSTECTOMY CORONARY ARTERY BYPASS GRAFT ESOPHAGOGASTRODUODENOSCOPY N/A 08/16/2018 Surgeon: Soren Currie MD; Location: [facility] FOOT/TOES SURGERY PROC UNLISTED GASTROJEJUNOSTOMY 1976 HAND/FINGER SURGERY UNLISTED HB REVEAL LINQ SYSTEM Implant HEMILAMINECTOMY KNEE ARTHROSCOPY OPEN CARPAL TUNNEL RELEASE OPEN CARPAL TUNNEL RELEASE PHACOEMULSIFICATION OF CATARACT WITH INTRAOCULAR LENS IMPLANT Right 2018 Surgeon: Dylan Chester MD; Location: [facility] OR [facility] PHACOEMULSIFICATION OF CATARACT WITH INTRAOCULAR LENS IMPLANT Left 02/28/2019 Surgeon: Dylan Chester MD; Location: [facility] STENT Social History Socioeconomic History Marital status: Spouse name: Not on file Number of children: Not on file Years of education: Not on file Highest education level: Not on file Occupational History Not on file Social Needs Financial resource strain: Not on file Food insecurity: Worry: Not on file Inability: Not on file Transportation needs: Medical: Not on file Non-medical: Not on file Tobacco Use Smoking status: Former Smoker Packs/day: 1.00 Years: 40.00 Pack years: 40.00 Types: Cigarettes Smokeless tobacco: Never Used Tobacco comment: Quit 40 years ago Substance and Sexual Activity Alcohol use: Yes Comment: Occasional Drinker Drug use: No Sexual activity: Not on file Lifestyle Physical activity: Days per week: Not on file Minutes per session: Not on file Stress: Not on file Relationships Social connections: Talks on phone: Not on file Gets together: Not on file Attends religion service: Not on file Active member of club or organization: Not on file Attends meetings of clubs or organizations: Not on file Relationship status: Not on file Intimate partner violence: Fear of current or ex partner: Not on file Emotionally abused: Not on file Physically abused: Not on file Forced sexual activity: Not on file Other Topics Concern Not on file Social History Narrative Not on file History reviewed. No pertinent family history. Review of Systems Constitutional: Negative for chills. Gastrointestinal: Positive for flatus. Negative for constipation and diarrhea. Genitourinary: Positive for flank pain. Negative for dysuria and hematuria. BP 107/62 | Pulse 60 | Temp 36.4 C (97.5 F) (Oral) | Ht 5' 10" (1.778 m) | Wt 226 lb (102.5 kg) | BMI 32.43 kg/m Physical Exam Constitutional: He is oriented to person, place, and time. He appears well- developed and well-nourished. HENT: Head: Normocephalic and atraumatic. Eyes: Conjunctivae are normal. Neck: Normal range of motion. Neck supple. No JVD present. No tracheal deviation present. No thyromegaly present. Cardiovascular: Normal rate, regular rhythm, normal heart sounds and intact distal pulses. Exam reveals no gallop and no friction rub. No murmur heard. Pulmonary/Chest: Effort normal and breath sounds normal. No respiratory distress. He has no wheezes.He has no rales. He exhibits no tenderness. Abdominal: Soft. Bowel sounds are normal. He exhibits no distension and no mass. There is no tenderness (right flank which is mild). There is no rebound and no guarding. Musculoskeletal: Normal range of motion. He exhibits no edema or tenderness. Lymphadenopathy: He has no cervical adenopathy. Neurological: He is alert and oriented to person, place, and time. Skin: Skin is warm and dry. POCT UA: no blood; + leukocytes Diagnosis: 1. Right flank pain tiZANidine 4 mg capsule Follow up: prn Patient Care Team: Chan Pires MD as PCP - General ([facility]-FAMILY MEDICINE) Plan of care, desired health behaviors, goals,& medication discussed with patient. Education resources & self management tools provided and reviewed with AVS. Patient/guardian/family verbalized understanding & agrees to plan of care. Barriers to care: None Ability to manage care: Good documented in this encounter Plan of Treatment Health Maintenance Due Date Last Done Comments DTaP,Tdap,and Td Vaccines (1 - Tdap) 01/26/1952 Zoster Recombinant Vaccine (SHINGRIX) (1 of 2) 1991 LUNG CANCER SCREEN: Recommended for age 55-80 with 30 + 01/26/1996 pack year history Medicare Wellness Visit 2006 PNEUMOCOCCAL VACCINES 65+ (1 of 2 - PCV13) 2006 INFLUENZA VACCINE (#1) 2019 documented as of this encounter Implants Implanted Type Area Tripe Washer Device Shelf Model / Identifier Expiration Date Serial / Lot Lens, Dominic #[id number] - [id number] LENS Right: Dominic 08/07/2023 [id number] / Implanted: Qty: 1 on 12/27/2018 by Dylan Chester MD at [facility] Eye [id number] / N/A Lens, Dominic #[id number] - [id number] LENS Left: Eye Dominic 10/06/2023 [id number] / Implanted: Qty: 1 on 02/28/2019 by Dylan Chester MD at [facility] [id number] / N/A documented as of this encounter Results Not on filedocumented in this encounter Visit Diagnoses Diagnosis Right flank pain - Primary Abdominal pain, unspecified site documented in this encounter Insurance Payer Benefit Plan / Subscriber ID Effective Dates Phone Address Type Group MEDICARE MEDICARE PART A xxxxxxxxxxx 2006-Sushila [phone] [id number] [place] [id number] [employer] A[employer]NA INDEMNITY [id number] 2013-Sushila [address] [place] [id number] documented as of this encounter
--- OUTSIDE RECORDS SUMMARY | 2019-10-24 21:12 | XMS REPORT | Summary of Care ---
:1940 Author Organization [facility] Address [address] [place] [address] Care Team Providers Name Role Phone Chan Pires MD Primary Care Provider Reason for Visit Reason Comments Pain Pain on RT side X 3 days Abdominal Pain Encounter Details Date Type Department Care Team Description 08/29/2019 Office Visit [facility] Family Chan Pires Right flank pain Medicine - Jonnie Tariq MD (Primary Dx) [address] [place] [address] [place] [phone] [phone] Allergies Active Allergy Reactions Severity Noted Date [...] by mouth 2 (two) times daily. omega 8-upg-mgt-fish Take 2 0 Active oil (FISH OIL) [...] Comments Blood Pressure 107/62 08/29/2019 1:59 PM REFERRAL SPECIALIST Pulse 60 08/29/2019 1:59 PM REFERRAL SPECIALIST Temperature 36.4 C (97.5 F) 08/29/2019 1:59 PM REFERRAL SPECIALIST Respiratory Rate - - Oxygen Saturation - - Inhaled Oxygen Concentration - - Weight 102.5 kg (226 lb) 08/29/2019 1:59 PM REFERRAL SPECIALIST Height 177.8 cm (5' 10") 08/29/2019 1:59 PM REFERRAL SPECIALIST Body Mass Index 32.43 08/29/2019 1:59 PM REFERRAL SPECIALIST documented in this encounter Progress Notes Chan [...] Take 25 mg by mouth daily. omega 0-mam-xog-fish oil (FISH OIL) 100-160-1,000 mg Cap Take [...] N/A 08/16/2018 Surgeon: Soren Currie MD; Location: [facility] OR [facility] FOOT/TOES SURGERY PROC UNLISTED GASTROJEJUNOSTOMY 1976 HAND/FINGER SURGERY UNLISTED HB REVEAL LINQ SYSTEM Implant HEMILAMINECTOMY KNEE ARTHROSCOPY OPEN CARPAL TUNNEL RELEASE OPEN CARPAL TUNNEL RELEASE PHACOEMULSIFICATION OF CATARACT WITH INTRAOCULAR LENS IMPLANT Right 2018 Surgeon: Dylan Chester MD; Location: [facility] OR [facility] PHACOEMULSIFICATION OF CATARACT WITH INTRAOCULAR LENS IMPLANT Left 02/28/2019 Surgeon: Dylan Chester MD; Location: [facility] OR [facility] STENT Social History Socioeconomic History Marital status: [...] file Gets together: Not on file Attends [employer] service: Not on file Active member of [...] of this encounter Implants Implanted Type Area Loader Machine Device Shelf Model / Identifier Expiration Date Serial / Lot Lens, Dominic #Sn60wf - [id number] LENS Right: Dominic 08/07/2023 SN60WF / Implanted: Qty: 1 on 12/27/2018 by Dylan Chester MD at [facility] [id number] / N/A Lens, Dominic #Sn60wf - [id number] LENS Left: Eye Dominic 10/06/2023 SN60WF / Implanted: Qty: 1 on 02/28/2019 by Dylan Chester MD at [facility] [id number] / N/A documented as of this encounter Results Not on filedocumented in this encounter Visit Diagnoses Diagnosis Right flank pain - Primary Abdominal pain, unspecified site documented in this encounter Insurance Payer Benefit Plan / Subscriber ID Effective Dates Phone Address Type Group MEDICARE MEDICARE PART A xxxxxxxxxxx 2006-Sushila [phone] Medicare & B t 82 [id number] [place] [id number] [employer] A[employer]NA INDEMNITY [id number] 2013-Sushila [address] [place] [id number] documented as of this encounter
--- OUTSIDE RECORDS SUMMARY | 2019-10-24 21:12 | XMS REPORT | Summary of Care ---
:1940 Author Organization [facility] - Health Address [address] [place] [address] Care Team Providers Name Role Phone Chan Pires MD Primary Care Provider Encounter Details Date Type Department Care Team Description 08/31/2019 Orders Only [facility] Doctor Unassigned, No [address] [facility] [place] [address] [address] [place] [address] Allergies Active Allergy Reactions Severity Noted Date Comments Morphine Unknown - See comments, 06/04/2016 Pain in area of liver Other - See comments Penicillins Unknown - See comments 08/11/2018 Swelling at injection site that lasted for several days documented as of this encounter (statuses as of 08/31/2019) Medications Medication Sig Dispensed Refills Start Date [...] Coenzyme Q10 200 mg Take 1 capsule by 0 Active Cap mouth 2 (two) times daily. omega 8-tcx-eab-fish Take 2 capsules 0 Active oil (FISH OIL) by mouth 2 (two) 100-160-1,000 mg Cap times daily. furosemide 20 mg Take 20 mg by 0 Active tablet mouth daily. isosorbide mononitrate Take 60 mg by 0 Active 60 mg 24 hr tablet mouth daily. levothyroxine sodium Take 100 mcg by 0 Active (LEVOTHYROXINE ORAL) mouth daily. lisinopril 20 mg Take 20 mg by 0 Active tablet mouth daily. MECOBALAMIN, VITAMIN Take 1,000 mcg by 0 Active B12, ORAL mouth daily. meloxicam 15 mg tablet Take 15 mg by 0 Active mouth daily. metoprolol succinate Take 25 mg by 0 Active XL 25 mg 24 hr tablet mouth daily. pantoprazole sodium Take 40 mg by 0 Active (PANTOPRAZOLE ORAL) mouth daily. nitroglycerin 0.[address] 0.4 mg 0 Active sublingual tablet under the tongue every 5 (five) minutes as needed for Chest pain. glucosam sul Na/chondr Take 1 tablet by 0 Active (GLUCOSAMINE-CHONDROIT mouth 2 (two) IN 3X ORAL) times daily. montelukast 10 mg Take 1 tablet by 30 tablet 5 07/11/2019 Active tabletIndications: mouth daily. Seasonal allergies magnesium oxide 400 mg TAKE 1 TABLET 0 07/26/2019 Active (241.3 mg magnesium) (400 MG TOTAL) BY tablet MOUTH DAILY FOR 30 DAYS. tiZANidine 4 mg Take 1 capsule by 30 capsule 0 08/29/2019 Active capsuleIndications: mouth 3 (three) Right flank pain times daily as needed for Muscle Spasms. documented as of this encounter (statuses as of 08/31/2019) Active Problems Problem Noted Date Cataract documented as of this encounter (statuses as of 08/31/2019) Social History Tobacco Use Types Packs/Day Years [...] of this encounter Last Filed Vital Signs Not on filedocumented in this encounter Plan of Treatment Health [...] of this encounter Implants Implanted Type Area Public Affairs Manager Device Shelf Model / Identifier Expiration Date Serial / Lot Lens, Dominic #Sn60wf - [id number] LENS Right: Dominic 08/07/2023 SN60WF / Implanted: Qty: 1 on 12/27/2018 by Dylan Chester MD at [facility] [id number] / N/A Lens, Dominic #Sn60wf - [id number] LENS Left: Eye Dominic 10/06/2023 SN60WF / Implanted: Qty: 1 on 02/28/2019 by Dylan Chester MD at [facility] [id number] / N/A documented as of this encounter Procedures Procedure Name Priority Date/Time Associated Diagnosis Comments EXTERNAL PROVIDER Routine 08/31/2019 12:01 AM FAMILY LIFE EDUCATOR RECORDS documented in this encounter Results Not on filedocumented in this encounter Insurance Payer Benefit Plan / Subscriber ID Effective Dates Phone Address Type Group MEDICARE MEDICARE PART A xxxxxxxxxxx 2006-Sushila [phone] [address] [facility] Medicare & B t 82 [id number] [place] [id number] AETNA AETNA INDEMNITY [id number] 2013-Sushila Indemnity t documented as of this encounter
--- OUTSIDE RECORDS SUMMARY | 2019-10-24 21:12 | XMS REPORT | Summary of Care ---
:1940 Author Organization [facility] Address [address] [place] [address] Care Team Providers Name Role Phone Chan Pires MD Primary Care Provider Reason for Visit Reason Comments Refill Request Encounter Details Date Type Department Care Team Description 10/19/2019 Refill [facility] Family Medicine Chan Pires MD Refill Request - [address] [address] [place] [phone] Allergies Active Allergy Reactions Severity Noted Date Comments Morphine Unknown - See comments, 06/04/2016 Pain in area of liver Other - See comments Penicillins Unknown - See comments 08/11/2018 Swelling at injection site that lasted for several days documented as of this encounter (statuses as of 10/19/2019) Medications Medication Sig Dispensed Refills Start Date [...] Cap mouth 2 (two) times daily. omega 2-jjw-hhl-fish Take 2 capsules 0 Active oil (FISH [...] times daily as needed for Muscle Spasms. valACYclovir 500 mg Take 1 tablet by 10 tablet 0 10/19/2019 Active tabletIndications: mouth 2 (two) Herpes simplex times daily. documented as of this encounter (statuses as of 10/19/2019) Active Problems Problem Noted Date Cataract documented as of this encounter (statuses as of 10/19/2019) Social History Tobacco Use Types Packs/Day Years [...] of this encounter Implants Implanted Type Area Winding Operator Device Shelf Model / Identifier Expiration Date Serial / Lot Lens, Dominic #Sn60wf - [id number] LENS Right: Dominic 08/07/2023 SN60WF / Implanted: Qty: 1 on 12/27/2018 by Dylan Chester MD at [facility] Eye [id number] / N/A Lens, Dominic #Sn60wf - [id number] LENS Left: Eye Dominic 10/06/2023 SN60WF / Implanted: Qty: 1 on 02/28/2019 by Dylan Chester MD at [facility] [id number] / N/A documented as of this encounter Results Not on filedocumented in this encounter Visit Diagnoses Diagnosis Herpes simplex - Primary Herpes simplex without mention of complication documented in this encounter Insurance Payer Benefit Plan / Subscriber ID Effective Dates Phone Address Type Group MEDICARE MEDICARE PART A xxxxxxxxxxx 2006-Sushila [phone] [address] Medicare & B t 82 [id number] [place] [phone] AETNA AETNA INDEMNITY [id number] 2013-Sushila Indemnity t documented as of this encounter
--- OUTSIDE RECORDS SUMMARY | 2019-10-24 21:12 | XMS REPORT | Summary of Care ---
:1940 Author Organization [facility] Address [address] [place] [address] Care Team Providers Name Role Phone Chan Pires MD Primary Care Provider Reason for Visit Reason Comments Pain Pain on RT side X 3 days Abdominal Pain Encounter Details Date Type Department Care Team Description 08/29/2019 Office Visit [facility] Family Chan Pires Right flank pain Medicine - Jonnie Tariq MD (Primary Dx) [address] [place] [address] [place] [phone] Allergies Active Allergy Reactions Severity Noted Date [...] by mouth 2 (two) times daily. omega 3-dyh-blr-fish Take 2 0 Active oil (FISH OIL) [...] Comments Blood Pressure 107/62 08/29/2019 1:59 PM CRM TECHNICAL LEAD Pulse 60 08/29/2019 1:59 PM CRM TECHNICAL LEAD Temperature 36.4 C (97.5 F) 08/29/2019 1:59 PM CRM TECHNICAL LEAD Respiratory Rate - - Oxygen Saturation - - Inhaled Oxygen Concentration - - Weight 102.5 kg (226 lb) 08/29/2019 1:59 PM CRM TECHNICAL LEAD Height 177.8 cm (5' 10") 08/29/2019 1:59 PM CRM TECHNICAL LEAD Body Mass Index 32.43 08/29/2019 1:59 PM CRM TECHNICAL LEAD documented in this encounter Progress Notes Chan [...] Take 25 mg by mouth daily. omega 9-wnd-rzh-fish oil (FISH OIL) 100-160-1,000 mg Cap Take [...] N/A 08/16/2018 Surgeon: Soren Currie MD; Location: [facility] FOOT/TOES SURGERY PROC UNLISTED GASTROJEJUNOSTOMY 1976 HAND/FINGER SURGERY UNLISTED HB REVEAL LINQ SYSTEM Implant HEMILAMINECTOMY KNEE ARTHROSCOPY OPEN CARPAL TUNNEL RELEASE OPEN CARPAL TUNNEL RELEASE PHACOEMULSIFICATION OF CATARACT WITH INTRAOCULAR LENS IMPLANT Right 2018 Surgeon: Dylan Chester MD; Location: [facility] PHACOEMULSIFICATION OF CATARACT WITH INTRAOCULAR LENS IMPLANT Left 02/28/2019 Surgeon: Dylan Chester MD; Location: [facility] STENT Social History Socioeconomic History Marital status: [...] file Gets together: Not on file Attends judaism service: Not on file Active member of [...] of this encounter Implants Implanted Type Area Litigator Device Shelf Model / Identifier Expiration Date Serial / Lot Lens, Dominic #Sn60wf - [id number] LENS Right: Dominic 08/07/2023 SN60WF / Implanted: Qty: 1 on 12/27/2018 by Dylan Chester MD at [facility] Eye [id number] / N/A Lens, Dominic #Sn60wf - [id number] LENS Left: Eye Dominic 10/06/2023 SN60WF / Implanted: Qty: 1 on 02/28/2019 by Dylan Chester MD at [facility] [id number] / N/A documented as of this encounter Procedures Procedure Name Priority Date/Time Associated Diagnosis Comments POCT URINALYSIS Routine 08/29/2019 Right flank pain documented in this encounter Results POCT URINALYSIS W SPECIFIC GRAVITY (08/29/2019) POCT U SP GRAV 1.025 1.005 - 1.025 mg/dl POCT PH U 5 5 - 8 mg/dl POCT U LEUK EST 1+ Negative - Negative POCT U NIT negative Negative - Negative POCT U PROT negative Negative - Negative POCT U GLU normal Negative - Negative POCT U KETONE negative Negative - Negative POCT U UROBILI normal 0.2 - 1 mg/dl POCT U BILI negative Negative - Negative POCT U BLD negative Negative - Negative POCT U COLOR dark yellow POCT U APPEAR clear Specimen Urine - URINE, CLEAN CATCH documented in this encounter Visit Diagnoses Diagnosis Right flank pain - Primary Abdominal pain, unspecified site documented in this encounter Insurance Payer Benefit Plan / Subscriber ID Effective Dates Phone Address Type Group MEDICARE MEDICARE PART A xxxxxxxxxxx 2006-Sushila [phone] [address] Medicare & B t 82 [id number] [place] [phone] AETNA AETNA INDEMNITY [id number] 2013-Sushila hines documented as of this encounter
--- OUTSIDE RECORDS SUMMARY | 2019-10-24 21:13 | XMS REPORT | Summary of Care ---
:1940 Author Organization [facility] Address [address] [place] [address] Care Team Providers Name Role Phone Chan Pires MD Primary Care Provider Reason for Visit Reason Comments Rx Concern/Question Encounter Details Date Type Department Care Team Description 10/19/2019 Telephone [facility] Family Chan Pires Rx Concern/Question Medicine - Jonnie Tariq MD [address] [place] [address] [address] [place] [address] [place] [address] [place], [place] [phone] Allergies Active Allergy Reactions Severity Noted Date [...] Cap mouth 2 (two) times daily. omega 6-vbs-pkm-fish Take 2 capsules 0 Active oil (FISH [...] of this encounter Implants Implanted Type Area Spooling Supervisor Device Shelf Model / Identifier Expiration Date Serial / Lot Lens, Dominic #Sn60wf - [id number] LENS Right: Dominic 08/07/2023 SN60WF / Implanted: Qty: 1 on 12/27/2018 by Dylan Chester MD at [facility] Eye [id number] / N/A Lens, Dominic #Sn60wf - [id number] LENS Left: Eye Dominic 10/06/2023 SN60WF / Implanted: Qty: 1 on 02/28/2019 by Dylan Chester MD at [facility] [id number] / N/A documented as of this encounter Results Not on filedocumented in this encounter Insurance Payer Benefit Plan / Subscriber ID Effective Dates Phone Address Type Group MEDICARE MEDICARE PART A xxxxxxxxxxx 2006-Sushila [phone] [address] Medicare & B t 82 [id number] [place] [phone] AETNA AETNA INDEMNITY [id number] 2013-Sushila Indemnity t documented as of this encounter
[2019-10-24 21:51] LABS: Absolute Lymphocytes (CBC) 1.3 K/uL (0.7-4.9); Basophils % 0.3 % (0-1.3); Hematocrit 41.9 % (39.6-49.0); Lymphocytes % 12.5 % (15.3-44.8); MPV 9.5 fL (7.6-11.3); RBC Red Blood Cell Count 4.63 M/uL (4.33-5.43)
[2019-10-24 21:54] LABS: Protime INR 0.97
[2019-10-24] MEDS ORDERED: NA CHLORIDE 0.9% 1,000 ML ONE ×2 (22:03→23:07)
[2019-10-24] MEDS ORDERED: FOLIC ACID 5 MG/ML VIAL ONE (22:04)
[2019-10-24 22:08] LABS: ALT/SGPT 20 U/L (12-78); AST/SGOT 15 U/L (15-37); Albumin 3.5 g/dL (3.4-5.0); Alkaline Phosphatase 56 U/L (45-117); BUN Blood Urea Nitrogen 22 mg/dL (7-18); Bicarbonate 26 mmol/L (21-32); Bilirubin Direct 0.1 mg/dL (0-0.2); Bilirubin Total 0.4 mg/dL (0.2-1.0); Glucose Level 109 mg/dL (74-106); NT PRO-BNP 303 pg/mL (<450); Protein, Total 7.1 g/dL (6.4-8.2); Sodium Level 137 mmol/L (136-145); Troponin (Emerg Dept Use Only) < 0.02 ng/mL (0.0-0.045)
--- NOTE | 2019-10-24 23:04 | ER ---
Nurse's Notes [facility] Name: Chan White Age: 79 yrs Sex: Male : 1940 Arrival Date: 10/24/2019 Time: 21:15 Bed 14 Private MD: Diagnosis: Weakness;Altered mental status, unspecified;Volume depletion Presentation: 10/23 21:17 Chief complaint: Spouse and/or significant other states: "He had 2 strokes before. Last ca1 was 2015. He worked all day today. 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 He got back to it. Drove home and kept falling asleep and shifting lanes, so he let me drive which was unusual. He seems disoriented. He also complains of a sensation on his L side of his head which he had before when he had a stroke. His aphasia is not unusual, he has that since his last stroke.". LKW 1.5 hrs ago. A\\T\\Ox4, No arm drift. Gait unsteady. Appears lethargic. Coronavirus screen: The patient has NOT traveled to a country currently being monitored by the CDC within the last 14 days. The patient has NOT had contact with any known and/or suspected case of coronavirus. Ebola Screen: Patient negative for fever greater than or equal to 101.5 degrees Fahrenheit, and additional compatible Ebola Virus Disease symptoms Patient denies exposure to infectious person. Patient denies travel to an Ebola-affected area in the 21 days before illness onset. No symptoms or risks identified at this time. Initial Sepsis Screen: Does the patient meet any 2 criteria? No. Patient's initial sepsis screen is negative. Does the patient have a suspected source of infection? No. Patient's initial sepsis screen is negative. Risk Assessment: Do you want to hurt yourself or someone else? Patient reports no desire to harm self or others. Onset of symptoms was October 24, 2019 at 20:00. 21:17 Method Of Arrival: Ambulatory ca1 21:17 Acuity: RENY 2 ca1 Triage Assessment: 21:48 Headache History: Denies prior headaches. General: Appears in no apparent distress. rv Behavior is calm, cooperative. Pain: Denies pain. Pain Pain began Also complains of. EENT: No signs and/or symptoms were reported regarding the EENT system. Neuro: Level of Consciousness is awake, alert, obeys commands, Oriented to person, place, time, situation. Cardiovascular: Patient's skin is warm and dry. Rhythm is sinus bradycardia with unifocal PVCs. Respiratory: Airway is patent Breath sounds are clear bilaterally. Derm: Wound noted right arm Wound is abrasion. Historical: - Allergies: 21:42 Morphine; ca1 21:42 PENICILLINS; ca1 - PMHx: 21:42 Cholelithiasis; carpal tunnel; doudenal ulcer; Hernia; knee surgery; stroke; TIA; ca1 - PSHx: 21:42 laminectomy; Carpal Tunnel Repair; Angioplasty; coronary bypass; ca1 - Immunization history:: Adult Immunizations up to date, Pneumococcal vaccine is up to date, Flu vaccine is up to date. - Social history:: Smoking status: Patient/guardian denies using tobacco, the patient reports quitting approximately 40 years ago. - Family history:: not pertinent. Screenin:42 VAN Screening: Arm Drift: Patient shows no arm weakness. Patient is VAN negative. Fall ca1 Risk Secondary diagnosis (15 points) CVA, IV access (20 points). Gait- Weak (10 pts.). Total Durham Fall Scale indicates High Risk Score (45 or more points). Fall prevention measures have been instituted. Side Rails Up X 2 Frequent Obs/Assessments Occuring Family Present and informed to notify staff if the need to leave the bedside As available patient and family educated on Fall Prevention Program and Strategies. 21:46 Abuse screen: Denies threats or abuse. Denies injuries from another. Nutritional rv screening: No deficits noted. Tuberculosis screening: No symptoms or risk factors identified. 21:47 The patient has not been NPO before screening. The patient is alert, able to follow rv commands. The patient does not exhibit slurred or garbled speech The patient is not exhibiting difficulty speaking. The patient does not exhibit difficulty understanding words. The patient is able to swallow own secretions with no drooling or need for suction. Patient tolerated one teaspoon of water. No drooling, immediate coughing, gurgling, or clearing of the throat was noted. The patient tolerated 90mL of water. No drooling, immediate coughing, gurgling, or clearing of the throat was noted. The patient passed the bedside swallow screening. Oral medications may be given as ordered. Contact Physician for further diet orders. Provider notified of bedside swallow screening results: Stephen Manuel MD. Assessment: 21:25 Reassessment: patient taken by triage nurse to CT scan. Reassessment:. rv 21:35 General: Appears in no apparent distress. Pain: Denies pain. Neuro: Level of rv Consciousness is awake, alert, obeys commands, Oriented to person, place, time, situation. Cardiovascular: Patient's skin is warm and dry. Rhythm is sinus rhythm with unifocal PVCs. Respiratory: Airway is patent Breath sounds are clear bilaterally. Derm: Wound noted right arm Wound is abrasion. 23:19 Reassessment: Patient appears in no apparent distress at this time. Patient and/or rv family updated on plan of care and expected duration. Pain level reassessed. Patient is alert, oriented x 3, equal unlabored respirations, skin warm/dry/pink. UNABLE TO NOTICE SLURRING OF SPEECH. GCS 15. ALERT AND ORIENTED X 4. Vital Signs: 21:17 BP 133 / 77; Pulse 42; Resp 16 S; Temp 97.3(TE); Pulse Ox 96% on R/A; Weight 100.7 kg ca1 (R); Height 5 ft. 10 in. (177.80 cm) (R); Pain 0/10; 21:42 BP 126 / 56; Pulse 62; Resp 17; Pulse Ox 96% on R/A; rv 22:00 BP 131 / 56; Pulse 62; Resp 19; Pulse Ox 95% on R/A; rv 22:30 BP 122 / 73; Pulse 55; Resp 17; Pulse Ox 95% on R/A; rv 23:00 BP 122 / 73; Pulse 60; Resp 16; Pulse Ox 97% on R/A; rv 10/24 00:00 BP 131 / 83; Pulse 63; Resp 18; Temp 97.5; Pulse Ox 96% on R/A; rv 10/23 21:17 Body Mass Index 31.85 (100.70 kg, 177.80 cm) ca1 NIH Stroke Scale Scores: 10/23 21:46 NIHSS Score: 0 rv 22:58 NIHSS Score: 0 kaden ED Course: 21:15 Patient arrived in ED. cf2 21:31 Stephen Manuel MD is Attending Physician. kaden 21:35 Markos, Trevor, RN is Primary Nurse. rv 21:38 Inserted saline lock: 20 gauge in left antecubital area, using aseptic technique. Blood rv collected. by gaye lilly. 21:39 CT Stroke Brain w/o Contrast In Process Unspecified. EDMS 21:39 EKG done, by ED staff, reviewed by Stephen Manuel MD. rv 21:41 Stroke CXR 1 View In Process Unspecified. EDMS 21:41 Triage completed. ca1 21:42 Arm band placed on right wrist. ca1 21:42 Patient has correct armband on for positive identification. Placed in gown. Bed in low ca1 position. Call light in reach. Side rails up X2. surveillance system monitor on. Pulse ox on. NIBP on. Warm blanket given. 23:01 Alvino Lozano MD is Hospitalizing Provider. kaden 10/24 01:18 No provider procedures requiring assistance completed. IV is patent, with fluids rv infusing freely, with good blood return, Patient admitted, IV remains in place. 11:41 Echocardiogram with doppler done by senior electronics technician. tc Administered Medications: 10/23 22:04 Drug: NS 0.9% 1000 ml Route: IV; Rate: 1 bolus; Site: left antecubital; rv 23:15 Follow up: IV Status: Completed infusion; IV Intake: 1000ml rv 22:04 Drug: foLIC Acid 1 mg Route: IVPB; Site: left antecubital; rv 23:16 Follow up: IV Status: Completed infusion rv 23:14 Drug: Aspirin 81 mg Route: PO; rv 10/24 01:21 Follow up: Response: No adverse reaction rv 10/23 23:14 Drug: Lovenox 1 mg/kg Route: Sub-Q; Site: abdomen; rv 10/24 01:21 Follow up: Response: No adverse reaction rv 10/23 23:14 Drug: NS 0.9% 1000 ml Route: IV; Rate: 125 ml/hr; Site: left antecubital; rv 10/24 01:20 Follow up: IV Status: Infusion continued upon admission rv 10/23 23:19 Drug: ProTONIX 40 mg Route: IVP; Site: left antecubital; rv 10/24 01:11 Follow up: Response: No adverse reaction rv Intake: 10/23 23:15 IV: 1000ml; Total: 1000ml. rv Output: 10/24 09:33 Urine: 400ml; Total: 400ml. dh3 Outcome: 10/23 23:03 Decision to Hospitalize by Provider. kaden 10/24 01:19 Admitted to ER Hold. [facility] documentation. rv Condition: good Instructed on the need for admit, Demonstrated understanding of instructions. 13:13 Patient left the ED. em NIH Stroke Scale - NIH Stroke Score Date: 10/24/2019 Time: 21:46 Total Score = 0 1a. Level of Consciousness (LOC) - 0(Alert) 1b. Level of Consciousness (LOC) (Year \\T\\ Age) - 0(Both) 1c. LOC Commands (Open \\T\\ Closes Eyes/Professional Soccer Player) - 0(Both) 2. Best Gaze (Lateral Gaze Paresis) - 0(Normal) 3. Visual Field Loss - 0(No visual loss) 4. Facial Palsy - 0(Normal) 5a. Left Arm: Motor (10-second hold) - 0(No drift) 5b. Right Arm: Motor (10-second hold) - 0(No drift) 6a. Left Leg: Motor (5-second hold - always test supine) - 0(No drift) 6b. Right Leg: Motor (5-second hold - always test supine) - 0(No drift) 7. Limb Ataxia (finger/nose \\T\\ heel/sheth - test with eyes open) - 0(Absent) 8. Sensory Loss (pinprick arms/legs/face) - 0(Normal) 9. Best Language: Aphasia (description/naming/reading) - 0(No aphasia) 10. Dysarthria (speech clarity - read or repeat words) - 0(Normal) 11. Extinction and Inattention (visual/tactile/auditory/spatial/personal) - 0(No abnormality) Initials: rv NIH Stroke Scale - NIH Stroke Score Date: 10/24/2019 Time: 22:58 Total Score = 0 1a. Level of Consciousness (LOC) - 0(Alert) 1b. Level of Consciousness (LOC) (Year \\T\\ Age) - 0(Both) 1c. LOC Commands (Open \\T\\ Closes Eyes/Professional Soccer Player) - 0(Both) 2. Best Gaze (Lateral Gaze Paresis) - 0(Normal) 3. Visual Field Loss - 0(No visual loss) 4. Facial Palsy - 0(Normal) 5a. Left Arm: Motor (10-second hold) - 0(No drift) 5b. Right Arm: Motor (10-second hold) - 0(No drift) 6a. Left Leg: Motor (5-second hold - always test supine) - 0(No drift) 6b. Right Leg: Motor (5-second hold - always test supine) - 0(No drift) 7. Limb Ataxia (finger/nose \\T\\ heel/sheth - test with eyes open) - 0(Absent) 8. Sensory Loss (pinprick arms/legs/face) - 0(Normal) 9. Best Language: Aphasia (description/naming/reading) - 0(No aphasia) 10. Dysarthria (speech clarity - read or repeat words) - 0(Normal) 11. Extinction and Inattention (visual/tactile/auditory/spatial/personal) - 0(No abnormality) Initials: kaden Signatures: Dispatcher [employer] Stephen Goss MD MD cha Munoz, Edgar, RN RN Cassandra Champion, delivery merchandiser EKG [facility] Felicia Meneses 3 Trevor Burrows RN RN Ackelvin, NICOLE Meehan RN [facility] Gasper Smith 2 Corrections: (The following items were deleted from the chart) 10/23 22:51 21:49 General: Appears in no apparent distress. rv rv 22:51 21:49 Pain: Denies pain. rv rv 22:51 21:49 Neuro: Level of Consciousness is awake, alert, obeys commands, Oriented rv to person, place, time, situation, rv 22:51 21:49 Cardiovascular: Patient's skin is warm and dry. Rhythm is sinus rhythm rv with unifocal PVCs rv 22:51 21:49 Respiratory: Airway is patent Breath sounds are clear bilaterally. rv rv 22:51 21:49 Derm: Wound noted right arm Wound is abrasion rv rv 22: 21:51 Inserted saline lock: 20 gauge in left antecubital area, using aseptic rv technique. Blood collected. by gaye lilly rv
--- NOTE | 2019-10-24 23:04 | EDPHYS ---
Physician Documentation [facility] Name: Chan White Age: 79 yrs Sex: Male : 1940 Arrival Date: 10/24/2019 Time: 21:15 Bed 14 Private MD: ED Physician Stephen Manuel HPI: 10/23 22:58 This 79 yrs old Male presents to ER via Ambulatory with complaints of kaden [place], Headache. 22:58 The patient complains of pain to the left orthodox, left frontal area and left temporal kaden area. The patient describes the headache as aching. Onset: The symptoms/episode began/occurred 6 hour(s) ago. Associated signs and symptoms: Pertinent positives: altered mental status, weakness. Severity of symptoms: At its worst the pain was mild, in the emergency department the pain is unchanged. Headache History: The patient has had previous headaches and this one is similar to previous episodes. The symptoms are alleviated by nothing. the symptoms are aggravated by nothing. The patient has experienced similar episodes in the past, a few times. Historical: - Allergies: 21:42 Morphine; ca1 21:42 PENICILLINS; ca1 - PMHx: 21:42 Cholelithiasis; carpal tunnel; doudenal ulcer; Hernia; knee surgery; stroke; TIA; ca1 - PSHx: 21:42 laminectomy; Carpal Tunnel Repair; Angioplasty; coronary bypass; ca1 - Immunization history:: Adult Immunizations up to date, Pneumococcal vaccine is up to date, Flu vaccine is up to date. - Social history:: Smoking status: Patient/guardian denies using tobacco, the patient reports quitting approximately 40 years ago. - Family history:: not pertinent. ROS: 22:58 Constitutional: Negative for fever, chills, and weight loss, Eyes: Negative for injury, kaden pain, redness, and discharge, ENT: Negative for injury, pain, and discharge, Neck: Negative for injury, pain, and swelling, Cardiovascular: Negative for chest pain, palpitations, and edema, Respiratory: Negative for shortness of breath, cough, wheezing, and pleuritic chest pain, Abdomen/GI: Negative for abdominal pain, nausea, vomiting, diarrhea, and constipation, Back: Negative for injury and pain, : Negative for injury, bleeding, discharge, and swelling, MS/Extremity: Negative for injury and deformity, Skin: Negative for injury, rash, and discoloration, Psych: Negative for depression, anxiety, suicide ideation, homicidal ideation, and hallucinations, Allergy/Immunology: Negative for hives, rash, and allergies, Endocrine: Negative for neck swelling, polydipsia, polyuria, polyphagia, and marked weight changes, Hematologic/Lymphatic: Negative for swollen nodes, abnormal bleeding, and unusual bruising. 22:58 Neuro: Positive for headache, weakness. Exam: 22:58 Constitutional: This is a well developed, well nourished patient who is awake, alert, kaden and in no acute distress. Head/Face: Normocephalic, atraumatic. Eyes: Pupils equal round and reactive to light, extra-ocular motions intact. Lids and lashes normal. Conjunctiva and sclera are non-icteric and not injected. Cornea within normal limits. Periorbital areas with no swelling, redness, or edema. ENT: Nares patent. No nasal discharge, no septal abnormalities noted. Tympanic membranes are normal and external auditory canals are clear. Oropharynx with no redness, swelling, or masses, exudates, or evidence of obstruction, uvula midline. Mucous membranes moist. Neck: Trachea midline, no thyromegaly or masses palpated, and no cervical lymphadenopathy. Supple, full range of motion without nuchal rigidity, or vertebral point tenderness. No Meningismus. Chest/axilla: Normal chest wall appearance and motion. Nontender with no deformity. No lesions are appreciated. Cardiovascular: Regular rate and rhythm with a normal S1 and S2. No gallops, murmurs, or rubs. Normal PMI, no JVD. No pulse deficits. Respiratory: Lungs have equal breath sounds bilaterally, clear to auscultation and percussion. No rales, rhonchi or wheezes noted. No increased work of breathing, no retractions or nasal flaring. Abdomen/GI: Soft, non-tender, with normal bowel sounds. No distension or tympany. No guarding or rebound. No evidence of tenderness throughout. Back: No spinal tenderness. No costovertebral tenderness. Full range of motion. Male : Normal genitalia with no discharge or lesions. Skin: Warm, dry with normal turgor. Normal color with no rashes, no lesions, and no evidence of cellulitis. MS/ Extremity: Pulses equal, no cyanosis. Neurovascular intact. Full, normal range of motion. Neuro: Awake and alert, GCS 15, oriented to person, place, time, and situation. Cranial nerves II-XII grossly intact. Motor strength 5/5 in all extremities. Sensory grossly intact. Cerebellar exam normal. Normal gait. Psych: Awake, alert, with orientation to person, place and time. Behavior, mood, and affect are within normal limits. Vital Signs: 21:17 BP 133 / 77; Pulse 42; Resp 16 S; Temp 97.3(TE); Pulse Ox 96% on R/A; Weight 100.7 kg ca1 (R); Height 5 ft. 10 in. (177.80 cm) (R); Pain 0/10; 21:42 BP 126 / 56; Pulse 62; Resp 17; Pulse Ox 96% on R/A; rv 22:00 BP 131 / 56; Pulse 62; Resp 19; Pulse Ox 95% on R/A; rv 22:30 BP 122 / 73; Pulse 55; Resp 17; Pulse Ox 95% on R/A; rv 23:00 BP 122 / 73; Pulse 60; Resp 16; Pulse Ox 97% on R/A; rv 10/24 00:00 BP 131 / 83; Pulse 63; Resp 18; Temp 97.5; Pulse Ox 96% on R/A; rv 10/23 21:17 Body Mass Index 31.85 (100.70 kg, 177.80 cm) ca1 NIH Stroke Scale Scores: 10/23 21:46 NIHSS Score: 0 rv 22:58 NIHSS Score: 0 kaden MDM: 21:31 Patient medically screened. [facility] 23:00 Data reviewed: vital signs, nurses notes, lab test result(s), EKG, radiologic studies, [facility] CT scan, plain films. 10/24 06:11 ED course: pt was not a tPA candidate, back at baseline, NIH 0. [facility] 10/23 21:27 Order name: Basic Metabolic Panel; Complete Time: 22:57 [facility] 10/23 21:27 Order name: CBC with Diff; Complete Time: 22:57 [facility] 10/23 21:27 Order name: Protime (+inr); Complete Time: 22:57 [facility] 10/23 21:27 Order name: Ptt, Activated; Complete Time: 22:57 [facility] 10/23 21:49 Order name: Liver (Hepatic) Function; Complete Time: 22:57 [facility] 10/23 21:49 Order name: Troponin (Emerg Dept Use Only); Complete Time: 22:57 [facility] 10/23 21:49 Order name: NT PRO-BNP; Complete Time: 22:57 [facility] 10/23 21:49 Order name: Magnesium; Complete Time: 22:57 [facility] 10/23 21:54 Order name: Glucose, Ancillary Testing; Complete Time: 22:57 [facility] 10/23 23:07 Order name: Urine Culture [facility] 10/23 21:27 Order name: CT Stroke Brain w/o Contrast [facility] 10/23 21:27 Order name: Stroke CXR 1 View [facility] 10/23 21:27 Order name: EKG; Complete Time: 21:28 [facility] 10/24 00:22 Order name: CBC with Automated Diff [facility] 10/24 00:22 Order name: CBC with Automated Diff [facility] 10/24 00:22 Order name: Comprehensive Metabolic Panel [facility] 10/24 00:22 Order name: Comprehensive Metabolic Panel [facility] 10/24 00:22 Order name: Troponin I [facility] 10/24 00:22 Order name: Troponin I; Complete Time: 06:10 [facility] 10/24 00:22 Order name: Troponin I [facility] 10/23 21:27 Order name: Accucheck; Complete Time: 21:45 [facility] 10/23 21:27 Order name: Cardiac monitoring; Complete Time: 21:45 [facility] 10/23 21:27 Order name: EKG - Nurse/Tech; Complete Time: 21:45 [facility] 10/23 21:27 Order name: IV Saline Lock; Complete Time: 21:45 [facility] 10/23 21:27 Order name: Labs collected and sent; Complete Time: 21:45 [facility] 10/23 21:27 Order name: NPO; Complete Time: 21:45 [facility] 10/23 21:27 Order name: O2 Per Protocol; Complete Time: 21:45 [facility] 10/23 21:27 Order name: O2 Sat Monitoring; Complete Time: 21:46 [facility] 10/23 21:27 Order name: Stroke Swallow Screen; Complete Time: 21:46 [facility] 10/23 23:07 Order name: Urine Dipstick-Ancillary (obtain specimen); Complete Time: 23:30 [facility] 10/24 00:22 Order name: CONS Pharmacy Consult [facility] 10/24 00:22 Order name: CONS Physician Consult [facility] 10/24 00:22 Order name: Consistent Carb (ADA) 1800 Dev EDMS Administered Medications: 10/23 22:04 Drug: NS 0.9% 1000 ml Route: IV; Rate: 1 bolus; Site: left antecubital; rv 23:15 Follow up: IV Status: Completed infusion; IV Intake: 1000ml rv 22:04 Drug: foLIC Acid 1 mg Route: IVPB; Site: left antecubital; rv 23:16 Follow up: IV Status: Completed infusion rv 23:14 Drug: Aspirin 81 mg Route: PO; rv 10/24 01:21 Follow up: Response: No adverse reaction rv 10/23 23:14 Drug: Lovenox 1 mg/kg Route: Sub-Q; Site: abdomen; rv 10/24 01:21 Follow up: Response: No adverse reaction rv 10/23 23:14 Drug: NS 0.9% 1000 ml Route: IV; Rate: 125 ml/hr; Site: left antecubital; rv 10/24 01:20 Follow up: IV Status: Infusion continued upon admission rv 10/23 23:19 Drug: ProTONIX 40 mg Route: IVP; Site: left antecubital; rv 10/24 01:11 Follow up: Response: No adverse reaction rv Disposition: 10/24/19 23:03 Hospitalization ordered by Alvino Lozano for Observation. Preliminary diagnosis are Weakness, Altered mental status, unspecified, Volume depletion. - Bed requested for [facility] ER HOLD. - Status is Observation. em - Condition is Fair. - Problem is new. - Symptoms have improved. NIH Stroke Scale - NIH Stroke Score Date: 10/24/2019 Time: 21:46 Total Score = 0 1a. Level of Consciousness (LOC) - 0(Alert) 1b. Level of Consciousness (LOC) (Year \T\ Age) - 0(Both) 1c. LOC Commands (Open \T\ Closes Eyes/Dry Sander) - 0(Both) 2. Best Gaze (Lateral Gaze Paresis) - 0(Normal) 3. Visual Field Loss - 0(No visual loss) 4. Facial Palsy - 0(Normal) 5a. Left Arm: Motor (10-second hold) - 0(No drift) 5b. Right Arm: Motor (10-second hold) - 0(No drift) 6a. Left Leg: Motor (5-second hold - always test supine) - 0(No drift) 6b. Right Leg: Motor (5-second hold - always test supine) - 0(No drift) 7. Limb Ataxia (finger/nose \T\ heel/sheth - test with eyes open) - 0(Absent) 8. Sensory Loss (pinprick arms/legs/face) - 0(Normal) 9. Best Language: Aphasia (description/naming/reading) - 0(No aphasia) 10. Dysarthria (speech clarity - read or repeat words) - 0(Normal) 11. Extinction and Inattention (visual/tactile/auditory/spatial/personal) - 0(No abnormality) Initials: irving NIH Stroke Scale - NIH Stroke Score Date: 10/24/2019 Time: 22:58 Total Score = 0 1a. Level of Consciousness (LOC) - 0(Alert) 1b. Level of Consciousness (LOC) (Year \T\ Age) - 0(Both) 1c. LOC Commands (Open \T\ Closes Eyes/Dry Sander) - 0(Both) 2. Best Gaze (Lateral Gaze Paresis) - 0(Normal) 3. Visual Field Loss - 0(No visual loss) 4. Facial Palsy - 0(Normal) 5a. Left Arm: Motor (10-second hold) - 0(No drift) 5b. Right Arm: Motor (10-second hold) - 0(No drift) 6a. Left Leg: Motor (5-second hold - always test supine) - 0(No drift) 6b. Right Leg: Motor (5-second hold - always test supine) - 0(No drift) 7. Limb Ataxia (finger/nose \T\ heel/sheth - test with eyes open) - 0(Absent) 8. Sensory Loss (pinprick arms/legs/face) - 0(Normal) 9. Best Language: Aphasia (description/naming/reading) - 0(No aphasia) 10. Dysarthria (speech clarity - read or repeat words) - 0(Normal) 11. Extinction and Inattention (visual/tactile/auditory/spatial/personal) - 0(No abnormality) Initials: kaden Signatures: Dispatcher [employer] Stephen Goss MD MD cha Munoz, Edgar, RN RN Joseph Chavez em1 Yaquelin Lee RN RN tl1 Trevor Burrows RN RN rv Jennifer Goff ar5 Shefali Gaytan RN RN ca1 Corrections: (The following items were deleted from the chart) 10/23 21:49 21:32 HEPATIC FUNCTION+C.LAB.BRZ ordered. [facility] 21:49 21:32 MAGNESIUM+C.LAB.BRZ ordered. [facility] 21:49 21:32 PROBNP+C.LAB.BRZ ordered. [facility] 21:49 21:32 TROPONIN (EMERG DEPT USE ONLY)+C.LAB.BRZ ordered. [facility] 10/24 00:50 10/23 23:03 Hospitalization Ordered by Alvino Lozano MD for Observation. tl1 Preliminary diagnosis is Weakness; Altered mental status, unspecified; Volume depletion. Bed requested for Telemetry/MedSurg (observation). Status is Observation. Condition is Fair. Problem is new. Symptoms have improved. [facility] 10/24 10:22 00:50 10/24/2019 23:03 Hospitalization Ordered by Alvino Lozano MD for em1 Observation. Preliminary diagnosis is Weakness; Altered mental status, unspecified; Volume depletion. Bed requested for [facility] ER HOLD. Status is Observation. Condition is Fair. Problem is new. Symptoms have improved. tl1 11:05 10:22 10/24/2019 23:03 Hospitalization Ordered by Alvino Lozano MD for em1 Observation. Preliminary diagnosis is Weakness; Altered mental status, unspecified; Volume depletion. Bed requested for Telemetry/MedSurg (observation). Status is Observation. Condition is Fair. Problem is new. Symptoms have improved. em1 11:05 11:05 10/24/2019 23:03 Hospitalization Ordered by Alvino Lozano MD for em1 Observation. Preliminary diagnosis is Weakness; Altered mental status, unspecified; Volume depletion. Bed requested for [facility] ER HOLD. Status is Observation. Condition is Fair. Problem is new. Symptoms have improved. em1 13:13 11:05 10/24/2019 23:03 Hospitalization Ordered by Alvino Lozano MD for em Observation. Preliminary diagnosis is Weakness; Altered mental status, unspecified; Volume depletion. Bed requested for [facility] ER HOLD. Status is Observation. Condition is Fair. Problem is new. Symptoms have improved. em1
[2019-10-24] MEDS ORDERED: ASPIRIN 81 MG CHEWABLE TABLET ONE (23:07)
[2019-10-24] MEDS ORDERED: ENOXAPARIN 100 MG/ML SYR SQ ONE (23:07)
[2019-10-24] MEDS ORDERED: PANTOPRAZOLE 40 MG INJ ONE (23:22)
[2019-10-25] MEDS ORDERED: LORAZEPAM 0.5 MG TABLET PO PRN (00:08)
[2019-10-25] MEDS ORDERED: HYDRALAZINE HCL 20 MG/ML VIAL IV PRN (00:08)
[2019-10-25] MEDS ORDERED: MORPHINE 2 MG/ML SYR IV PRN (00:08)
[2019-10-25] MEDS ORDERED: ONDANSETRON 4 MG/2 ML VIAL IV PRN (00:08)
[2019-10-25] MEDS ORDERED: ALBUTEROL 2.5 MG/3 ML NEB SOL NEB PRN (00:10)
[2019-10-25 01:57] VITALS: O2SAT 98; BMI 31.5
--- NOTE | 2019-10-25 03:33 | HP ---
Date of Admission: 10/25/2019 Presenting Complaint: Transient loss of consciousness. History Of Present Illness: Mr. White is a 79-year-old male with past medical history o f hypertension, CAD, status post CABG with subsequent multiple PCI, last episode was 3 months ago wit h stent to 1 of the coronary arteries, he has had 2 to 8 stents, 5 since the CABG 8 years ago. He fo llows with virtualization engineer at [facility]. The patient had a history of CVA in the past with some mild expressive dysphagia. At baseline today, he has the morning with his after whi ch the patient said he felt transient disorientation lasting a few seconds before he regained conscio usness. He did not have any fall or chest pain at that time. He was still able to drive home, but d uring the drive, he had 2 episodes of recurrent transient disorientation as per lasting less leslie n 2 to 3 seconds. On arrival at home, has driven the patient to the emergency room. He has not had any episode since arrival. His blood pressure was in the normal range at 130s on presentation w ith heart rate in the 60s. Of note, the patient has subcutaneously placed LINQ monitor for which his virtualization engineer has been monitoring his arrhythmia. Apparently, he had an episode of transient atrial fibrillation during his last stent placement 3 months ago. The patient feels fine. He denies any co mplaint. No weakness of any of the extremities. He has some transient headache, which has significa ntly improved. Of note, during my interview with the patient, I did notice patient was having couple t beats on the telemetry monitoring. Allergies: MORPHINE, PENICILLIN. Past Medical History: Hypertension, CAD, and multiple PCIs. Past Surgical History: Status post CABG, status post in-place LINQ monitor, laminectomy, cholecystec rianna, hernia surgery, knee surgery, carpal tunnel repair. Social History: Previous smoker, quit 40 years ago. Lives with the . No history of alcohol use . Functional Status: Ambulatory and able to do activities of daily living and instrumental activities of daily living at baseline. Family History: Not important in this elderly male. Review of Systems: All systems reviewed x14 were negative except for intermittent lower extremity swelling for which he takes Lasix. Physical Examination: Current Vital Signs: Blood pressure of 126/77, pulse of 62 on presentation, pulse was actually 42 in the emergency room, respiratory rate of 16, temperature 97.3, O2 saturation 96% on room air. Weight of 100.7 kg. General: Elderly male, calm, not in any distress. Head: Atraumatic, normocephalic. Pupils PERRLA. Extraocular motor movement intact. Neck: No JVD. No carotid bruit. A midline sternotomy scar noted. Cardiovascular: S1, S2. Rate and rhythm regular. GI: Abdomen full, soft, nontender. Bowel sounds positive. Extremities: 1+ pedal edema. No calf tenderness. Neuro: Patient is alert, conversant. Mild word-finding difficulty and better flow, is intact. No p ronator drift. Laboratory Data: Hemoglobin 14, WBC 10. INR 0.9. Potassium 4, magnesium 2, alkaline phosphatase, t roponin negative. ProBNP 303, creatinine 1. Imaging: Head CT shows no acute infarct. Chest x-ray pending but shows no acute infiltrate. Impression: Transient loss of consciousness, possibly due to transient ischemic attack but most like ly due to cardiac arrhythmia given bradycardia on patient's arrival as well as a clinical history. W e will admit patient to observation. We will place on telemetry. We will consult Cardiology in the a.m., but insists patient if no acute events, patient should be discharged to follow with the ca rdiologist at [facility]. We will monitor patient over the next several hours over night. If no overt worsening of cardiac arrhythmia, patient can be discharged in the morning to foll ow up with the outpatient virtualization engineer. I do not think patient has any transient ischemic attack. W e not ordered any further workup for any neuro events at this time. We will hold off on a gentle IV fluid hydration currently being given in the ED as patient is already mildly fluid overloaded and I s uspect patient may have baseline CHF, but no need for echocardiogram since previously done by the car diologist in the [facility]. We will monitor blood pressure and resume medication but hold me toprolol for now since recent bradycardia. We do subcutaneous Lovenox for DVT prophylaxis. Advanced directives, patient is full code. EO/MODL Voice ID: [id number]
[2019-10-25 04:03] VITALS: BP 133/74; TEMP 98
--- NOTE | 2019-10-25 06:26 | EKG ---
Test Date: 2019-10-24 Test Time: 21:39:56 Regional Sales Associate: RV MEASUREMENT RESULTS: Intervals: Rate: 65 NH: QRSD: 100 QT: 454 QTc: 472 [place]: P: NH: QRS: -7 T: -65 INTERPRETIVE STATEMENTS: sinus rhythm with frequent and consecutive premature ventricular complexes Minimal voltage criteria for LVH, may be normal variant Cannot rule out Inferior infarct, age undetermined Abnormal ECG Compared to ECG 07/22/2019 14:04:42 Left ventricular hypertrophy now present Myocardial infarct finding now present ST (T wave) deviation no longer present Possible ischemia no longer present Prolonged QT interval no longer present Electronically Signed On 10-25-19 06:25:30 CDT by Saman Freedman
--- NOTE | 2019-10-25 07:11 | RAD REPORT ---
EXAM DESCRIPTION: RAD - Chest Single View - 10/24/2019 9:40 pm CLINICAL HISTORY: stroke, aphasia, drowsy, Stroke protocol chest film COMPARISON: AP chest July 2019 TECHNIQUE: AP portable chest image was obtained 10/24/2019 9:40 pm . FINDINGS: Lung volumes are low. Interstitial pattern in vasculature are not substantially different when adjusting for the low lung volumes. Significant failure or volume overload are not suspected. No peripheral mass or consolidations seen. Sternotomy wires are in place. Loop recorder overlies the ch est. Heart size is magnified by shallow inspiration and is borderline enlarged. Upper lobe vasculatur e within normal limits for exam limitations. No measurable pleural effusion and no pneumothorax. No a cute bony abnormality seen. No acute aortic findings suspected. IMPRESSION: Shallow inspiration chest exam without acute cardiopulmonary finding.
[2019-10-25] MEDS ORDERED: PANTOPRAZOLE 40MG TABLET PO SCH (07:30)
[2019-10-25] MEDS ORDERED: PNEUMOCOCCAL VACCINE 0.5 ML IMVAC ONE (08:00)
[2019-10-25] MEDS ORDERED: ACETAMINOPHEN 325 MG TABLET ONE (08:33)
[2019-10-25] MEDS ORDERED: PANTOPRAZOLE 40MG TABLET PO ONE ×2 (08:33→11:53)
[2019-10-25] MEDS ORDERED: ENOXAPARIN 40 MG/0.4 ML SQ ONE (08:34)
[2019-10-25] MEDS ORDERED: ENOXAPARIN 40 MG/0.4 ML SQ SCH ×2 (09:00→21:00)
--- NOTE | 2019-10-25 11:24 | CON ---
Date of Consultation: 10/25/2019 Reason For Consultation: Presyncope. History Of Present Illness: Mr. White is a 79-year-old white male, who sees Dr. Timothy Hudson at [facility] from a cardiac standpoint. He has had a history of CVA in the past. He also has a history of hypertension, dyslipidemia, hypothyroidism, and gastroesophageal reflux disease. He was w orking before a couple of days, mowing lawn up to 6 acres in the last day or 2. 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 The patient denied any chest pain, nausea, or vomiting. He denied any PND, orthopnea, pedal edema, or palpitation. So far he has ruled out for myocardial infraction. EKG showed sinus rhythm with couplets. CT of his head showed old stroke, no acute CVA. Patient is asymptomatic right now. It is adventitious that he does have L INQ device that had just been replaced by Dr. Hudson about a month ago, he has had that for 2 to 3 year s to monitor for arrhythmia. Past Medical History: As stated above. Allergies: PENICILLIN AND MORPHINE. Review of Systems: Negative. Social History: Negative. Family History: Noncontributory. Medications: Norvasc, Lipitor, Plavix, Imdur, synthroid, metoprolol, lisinopril, Protonix, and CoQ10 . Physical Examination: General: He is very pleasant, in no acute distress. Vital Signs: Stable. He was afebrile. He was in sinus rhythm at about 64. HEENT: Negative. Neck: Supple without any bruit, lymphadenopathy, JVD, or thyromegaly. Chest: Clear to auscultation and percussion. Cardiac: Revealed a regular rhythm and rate. It is what sounds like aortic sclerosis murmur. No ga llops or rubs. Abdomen: Benign. Extremities: Revealed no clubbing, cyanosis, or edema. Neurologic: He was nonfocal. Skin: Dry and intact. Pulses were present distally bilaterally. Diagnostic Data: As stated earlier. Impression And Plan: 1.Presyncope. I think this is most likely secondary to orthostatic hypotension. He does have multi ple medications that he takes at home for blood pressure that include metoprolol, lisinopril, Norvasc , as well as Imdur and Lasix. 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 I do not think this is an acute CVA or acute coronary syndrome. There is an echocardiogram that is pending. He does have a couplet on monitor. He has LINQ that is monitoring his heart rhythm. We will make palomares re this gets checked out and see if that shows any other arrhythmias at the he had his episode. I th ink it will be good to watch him overnight and then discharge him tomorrow. He can have a followup w ith Dr. Hudson in the near future. We may want to make some adjustments regarding his medicine. I did suggest that he take the Lasix only as needed and avoid taking the Lasix on the days that he is work ing outside in the heat. 2.History of coronary artery disease status post coronary artery bypass graft and status post stent recently in July by Dr. Hudson. He is to continue his Plavix and metoprolol in that regard. No ch est pain was reported. 3.Dyslipidemia, on Lipitor. 4.Hypothyroidism, on synthroid. 5.History of cerebrovascular accident that is stable. I will discuss this case further with Dr. Ventura and I will call Dr. Hudson to get him up to date. ANITA/DHRUV Voice ID: [id number] Report ID: [id number]
--- NOTE | 2019-10-25 11:40 | RAD REPORT ---
EXAM DESCRIPTION: CT - Ct Stroke Brain Wo Cont - 10/25/2019 5:31 am CLINICAL HISTORY: 79 years Male HEADACHE COMPARISON: None. TECHNIQUE: Contiguous axial CT images obtained through the brain without IV contrast. This exam was performed according to our department optimization program which includes automated exp osure control, adjustment of the mA and/or kv according to patient size and/or use of iterative recon struction technique. FINDINGS: The ventricles and sulci are prominent consistent with atrophic changes. Mild microvascular ischemic changes. There is low density in the left temporal and parietal regions consistent with an old infarct. No mass lesions. No acute hemorrhage. Atherosclerotic calcifications. No fluid or significant mucosal thickening in the visualized paranasal sinuses. No depressed calvarial fractures. 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 No acute intracranial abnormality is identified. If ther e is clinical concern for the possibility of acute ischemic change, MRI could be obtained to better e valuate. The findings were called to Dr. Stephen Manuel at 9:50 PM. Electronically signed by: Demetrius Hooker MD 10/24/2019 9:51 PM CDT Due to temporary technical issues with the PACS/Fluency reporting system, reports are being signed by the in house radiologist as a courtesy to ensure prompt reporting. The interpreting radiologist is f ully responsible for the content of the report.
--- NOTE | 2019-10-25 13:27 | DS ---
Date of Discharge: 10/25/2019 Consultants: Dr. Freedman with Cardiology. Discharge Diagnoses: 1. Near syncopal episode likely due to orthostatic hypotension. 2. Coronary artery disease status post stent and coronary artery bypass graft , t[place] artery, tuscarora heart without angina, stable. 3. In place LINQ monitor. 4. Essential hypertension, stable. 5. History of cerebrovascular accident in the past with expressive dysphasia. Hospital Course: Patient is a 79-year-old male with past medical history of coronary artery disease status post CABG and multiple PCI, latest 3 months ago with 1 stent placed, follows with Dr. Hudson in [facility], history of CVA , comes in with transient loss of consciousness. Patient had been working outside in the yard mowing his lawn in the heat and he is on multiple blood pressure medications including Norvasc, Lasix, Imdur, and lisinopril. Patient was found to have couplets on EKG as well. Cardiac enzymes were negative x3. There was no ACS. Patient did not have any chest pain. Patient was seen by Dr. Freedman with Cardiology, who contacted his primary development mgr, Dr. Hudson at [facility]. The LINQ monitor did not reveal any arrhythmias. Patient's head CT scan was negative for any acute changes. He does have an old infarct in the territory of the posterior division of the left MCA. This is old and patient has a history of cerebrovascular accident. His chest x-ray showed shallow inspiration chest exam without acute cardiopulmonary finding. Overall, patient did well. Echocardiogram was obtained. Overall, patient did not have any symptoms. He was then cleared for discharge. Not felt to have any sort of TIA , as this is more related to orthostatic hypotension. Head CT scan was negative.He was instructed to make his Lasix p.r.n. instead of scheduled. He is currently taking Lasix twice a day. He is also instructed to hold his metoprolol for heart rate less than or equal to 60. He is to follow up with his primary development mgr, Dr. Hudson, in 1 to 2 weeks. Return to ER for worsening condition. Followup: Follow up with primary care physician in 2 to 3 days. Diet: Low-sodium, free-fluid restricted diet. Activity: As tolerated. Medications: As per medication reconciliation list. Physical Examination: General: Awake, alert, oriented x3. Elderly male, obese, BMI 31. CV: S1, S2. Respiratory: Moving air well bilaterally. Abdomen: Soft, nontender, nondistended. Positive bowel sounds. Extremities: No clubbing, cyanosis, edema. Neurologic: Nonfocal. SA/MODL Voice ID: [id number] Report ID: [id number] [facility]
--- NOTE | 2019-10-26 07:56 | ECHO ---
HEIGHT: 5 ft 10 in WEIGHT: 220 lb 0 oz DATE OF STUDY: 10/25/[address]: Saman Freedman MD 2-DIMENSIONAL: YES M.MODE: YES DOPPLER: YES COLOR FLOW: YES TDS: PORTABLE: DEFINITY: BUBBLE STUDY: DIAGNOSIS: POSSIBLE CEREBRAL VASCULAR ACCIDENT CARDIAC HISTORY: CATHERIZATION: YES SURGERY: YES PROSTHETIC VALVE: NO PACEMAKER: YES MEASUREMENTS (cm) DIASTOLIC (NORMALS) SYSTOLIC (NORMALS) IVSd 1.1 (0.6-1.2) LA Diam 3.1 (1.9-4.0) LVEF 77% LVIDd 4.0 (3.5-5.7) LVIDs 2.2 (2.0-3.5) %FS 45% LVPWd 1.2 (0.6-1.2) Ao Diam 3.4 (2.0-3.7) 2 DIMENSIONAL ASSESSMENT: RIGHT ATRIUM: NORMAL LEFT ATRIUM: NORMAL RIGHT VENTRICLE: PACEMAKER CATHETER, RIGHT VENTRICULAR APEX LEFT VENTRICLE: NORMAL TRICUSPID VALVE: NORMAL MITRAL VALVE: NORMAL PULMONIC VALVE: NORMAL AORTIC VALVE: SCLEROSIS PERICARDIAL EFFUSION: NONE AORTIC ROOT: NORMAL LEFT VENTRICULAR WALL MOTION: NORMAL DOPPLER/COLOR FLOW: NO AORTIC STENOSIS OR AORTIC REGURGITATION. MILD MITRAL AND TRICUSPID REGURGITATION. NORMAL RIGHT VENTRICULAR SYSTOLIC PRESSURE. COMMENTS: NORMAL LEFT VENTRICULAR EJECTION FRACTION. AORTIC SCLEROSIS WITH NO AORTIC STENOSIS OR AORTIC REGURGITATION. MILD MITRAL AND TRICUSPID REGURGITATION. TECHNOLOGIST: ALVARADO ARROYO
== END 2019-10-25 12:57 | disposition home or self-care (01) ==
LOC: ER 21:08 → ERHOLD 10-25 00:11
PROVIDERS: ADMIT Internal Medicine; ATTEND Family Medicine
DX: R55 Syncope and collapse (principal); I10 Essential (primary) hypertension; E78.5 Hyperlipidemia, unspecified; E03.9 Hypothyroidism, unspecified; I25.10 Atherosclerotic heart disease of native coronary artery without angina pectoris; K21.9 Gastro-esophageal reflux disease without esophagitis; Z86.73 Personal history of transient ischemic attack (TIA), and cerebral infarction without residual deficits; Z87.891 Personal history of nicotine dependence; Z95.1 Presence of aortocoronary bypass graft; Z95.5 Presence of coronary angioplasty implant and graft; Z79.02 Long term (current) use of antithrombotics/antiplatelets; Z79.899 Other long term (current) drug therapy; Z88.0 Allergy status to penicillin; Z88.6 Allergy status to analgesic agent
CPT/HCPCS: 96365; 96361; 93005; 93306; 87088; 85025; 87086; 80048; 36415; 83735; 85610; 82947; 80076; 85730; 84484 ×3; 83880; 70450; 71045; 96375; 96372; 99285; C9113; J1650; J7030 ×2; G0378 ×2

== ENCOUNTER 2022-02-02 09:59 | Inpatient (IN) | payer OTHER ==
--- OUTSIDE RECORDS SUMMARY | 2022-02-02 10:04 | XMS REPORT | Continuity of Care Document ---
:1940 Author Organization [facility] t Address [address] [place] [address] [address]. [address] [place] [address] Care Team Providers Name Role Phone Sunil Hudson MD Primary Care Physician Shani BRICEÑO Attending Clinician Unavailable LOUIS GUERRERO Attending Clinician Unavailable Louis Guerrero MD Attending Clinician [facility] Attending Clinician Unavailable Sunil Hudson MD Attending Clinician Provider Attending Clinician Unavailable TAYLER Admitting Clinician Unavailable Payers Payer Name Policy Type Policy Number Effective Date Expiration Date Shameka MADDEN MANAGED [id number] 2021 MEDICARE PPO-SARAH 00:00:00 Problems Condition Condition Condition Status Onset Resolution Last Treating Co mments Source Name Details Category Date Date Treatment Clinician Date Acute pain Acute pain Disease Active U nivers of right of right 4-07 ity of shoulder shoulder 00:00: [place] [id number] Medical Branch Decreased Decreased Disease Active Uni vers range of range of 4-07 [place] motion [place] shoulder shoulder Branch Rotator Rotator Disease Active Univers cuff cuff 4-07 ity of arthropath [place], right 00 Medica l Branch Weakness Weakness Disease Active Unive rs of of 4-07 ity of shoulder shoulder 00:00: [address] Branch Abnormal Abnormal Disease Active Metho di stress stress 6-22 st test test 00:00: Hospita 00 l 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-16 st disease of disease of 00:00: [place] artery of artery of [place] 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 Essential Essential Disease Recurre 2018-08 Me thodi hypertensi hypertensi nce 2-16 st on on 00:00: Hospita 00 l 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 2-16 st emia emia 00:00: Hospita 00 l Gastroesop Gastroesop Disease Recurre 2018-08 Methodi hageal hageal nce 2-16 st reflux reflux 00:00: Hospita disease disease 00 l without without esophagiti esophagiti s s Gout Gout Disease Recurre 2018-08 Methodi nce 2-16 st 00:00: Hospita 00 l Acquired Acquired Disease Recurre 2018-08 Meth sung hypothyroi hypothyroi nce 2-16 st dism dism 00:00: Hospita 00 l ISCHEMIC Diagnosis Active 2015-082016-06-28 M emoria STROKE 1-07 21:59:00 l ISCHEMIC 00:00: [place] n STROKE 00 Active 06/14/2016 [facility] THIRD Diagnosis Active 2013-2014-02-25 Mem oria DEMOCRAT 11-24 16:50:00 l FLIGHT THIRD 00:00: [place] DEMOCRAT 00 FLIGHT Active 11/24/2013 [facility] Cataract Cataract Disease Active Unive rs ity of [facility] Transient Problem Resolve 2016-06-18 M emoria ischemic d 03:37:49 l attack [place] (disorder) Transient ischemic attack (disorder) Resolved Problem 06/18/2016 (02/2012 - TIA 1) (12/2012 - TIA 2) (03/2013 - TIA 3) [facility] CEREBRAL Diagnosis Active 2016-06-28 M emoria INFARCTION 21:59:00 l , CEREBRAL Pined[place] n UNSPECIFIE INFARCTION D , UNSPECIFIE D Active [facility] Coronary Problem Resolve 2016-06-18 Me moria arterioscl d 03:37:49 l erosis Coronary [place] n (disorder) arterioscl erosis (disorder) Resolved Problem 06/18/2016 [facility] Device Problem Resolve 2016-06-18 Donnie jeana status d 03:37:49 l (finding) Device Dyan nn status (finding) Resolved Problem 06/18/2016 [facility] Cerebrovas Problem Resolve 2008-0 2016-06-18 2016-06-18 Memoria cular d 2- 03:37:49 03:37:49 l accident 00:00: [place] (disorder) Cerebrovas 00 cular accident (disorder) Resolved 09/08/2008 Problem 06/18/20162007 [facility] Carpal Problem Resolve 1992-0 2016-06-18 2016-06-18 Memoria tunnel d 2- 03:37:49 03:37:49 l syndrome Carpal 00:00: [place] n (disorder) tunnel 00 syndrome (disorder) Resolved 09/08/1992 Problem 06/18/2016 [facility] Hernia of Problem Resolve 1972-0 2016-06-18 2016-06-18 Memoria abdominal d 1- 03:37:49 03:37:49 l cavity Hernia 00:00: [place] (disorder) of 00 abdominal cavity (disorder) Resolved 08/08/1972 Problem 06/18/2016 [facility] Allergies, Adverse Reactions, Alerts Allergy Allergy Status Severity Reaction(s) Onset Inactive Treating Comm ents Source Name Type Date Date Clinician PENICILL Drug Active Unknown-Cmnt Un andi INS Class 1-04 ity of 00:00: [place] 00 Medical Branch Penicill Propensi Active Unknown - Swelling U nivers ins ty to See comments 1-04 at ity of adverse 00:00: injection [place] reaction 00 site that Medic al s lasted Branch for several days Morphine Propensi Active Other (See 2015-08 Pain in M ethodi ty to Comments) 0-[address] adverse 00:00: liver Hospita reaction 00 l s to drug Penicill Propensi Active Other (See 2015-08 Swelling Methodi in G ty to Comments) 0-[address] adverse 00:00: injection Hospit a reaction 00 l s to drug MORPHINE DRUG Active Unknown-Cmnt 2015-08 Un andi INGREDI 0-28 ity of 00:00: [place] 00 Medical Branch Morphine Propensi Active Other - See 2015-08 Pain in Univers ty to comments 0-28 area of ity of adverse 00:00: liver [place] reaction 00 Medical s Branch morphine morphine Active Memori a l Mark penicill penicill Active Memori a ins ins l [place] Family History Family Member Diagnosis Comments Start Date Stop Date Source Natural father [facility] Natural mother Stroke [facility] Natural sister [facility] Social History Social Habit Start Date Stop Date Quantity Comments Source History of tobacco Cigarette Smoker University of use [facility] History of tobacco Cigarette Smoker [facility] use Hospital History SDUT University o f Alcohol Frequency [facility] edical Branch History [facility] University o f Alcohol Std Drinks [place] [facility] History [facility] o f Alcohol Binge [place] Medic al Branch Exposure to 2021-12-18 2021-12-28 Not sure University SARS-CoV-2 (event) 00:00:00 14:07:00 [facility] Alcohol intake 2021-02-02 2021-02-02 Ex-drinker [facility] 00:00:00 00:00:00 (finding) Hospital Tobacco Comment 2018-12-22 2018-12-22 Quit 40 years ago Un iversity of 00:00:00 00:00:00 [facility] Alcohol Comment 2018-08-14 2018-08-14 Occasional Universit y of 00:00:00 00:00:[address] [facility] Cigarette 2018-08-11 2018-08-11 University of pack-years 00:00:00 00:00:00 [facility] Social History 2016-06-14 2016-06-14 [facility] 23:44:28 23:44:28 Cigarettes smoked 2016-06-04 2016-06-04 [facility] current (pack per 00:00:00 00:00:00 [facility] - Reported Tobacco use and 2016-06-04 2016-06-04 Smokeless tobacco [facility]ist exposure 00:00:00 00:00:00 non-user Hospital Sex Assigned At [birth year] [facility] 00:00:00 00:00:00 Hospital Smoking Status Start Date Stop Date Source Former smoker 2018-08-11 00:00:00 2018-08-11 00:00:00 [facility] Medications Ordered Filled Start Stop Current Ordering Indication Dosage Frequency Signature Comments Components Source Medication Medication Date Date Medication? Clinician (SIG) Name Name benzonatate Yes [id number] 200mg Take 1 Univers 200 mg 8-25 capsule by ity of capsule 00:00: mouth 3 [place] 00 (three) Medical times Branch daily as needed for Cough. methylPREDN 0 Yes [id number] Take by Univers ISolone 8-25 mouth ity of (MEDROL, 00:00: SEE-INSTRU Jeremiah as RYAN,) 4 mg 00 CTIONS. Medica l tablets follow Branch package directions azithromyci 0 Yes [id number] 500mg Take 1 Univers n 500 mg 8-25 tablet by ity of tablet 00:00: mouth [place] 00 daily. Medical Branch benzonatate 0 Yes [id number] 200mg Take 1 Univers 200 mg 8-25 capsule by ity of capsule 00:00: mouth 3 00 (three) Medical times Branch daily as needed for Cough. methylPREDN Yes [id number] Take by Univers ISolone 8-25 mouth ity of (MEDROL, 00:00: SEE-INSTRU Jeremiah as RYAN,) 4 mg 00 CTIONS. Medica l tablets follow Branch package directions azithromyci Yes [id number] 500mg Take 1 Univers n 500 mg 8-25 tablet by ity of tablet 00:00: mouth [place] 00 daily. Medical Branch albuterol Yes [id number] 2{puff} Inhale 2 Univers 90 8-19 [id number] Puffs ity of mcg/actuati 00:00: every 6 Jeremiah as on inhaler 00 (six) Medical hours as Branch needed for Wheezing or Shortness of Breath. albuterol Yes [id number] 2{puff} Inhale 2 Univers 90 8-19 [id number] Puffs ity of mcg/actuati 00:00: every 6 Jeremiah as on inhaler 00 (six) Medical hours as Branch needed for Wheezing or Shortness of Breath. aspirin 2020- No 81mg QD Take 1 Methodi (ECOTRIN) 6-24 07-25 tablet (81 st 81 MG 00:00: 04:59 mg total) Hospit a enteric 00 :00 by mouth l coated daily for tablet 30 days. meloxicam 2020- No 7.5mg Q.5D Take 7.5 Me thodi (MOBIC) 7.5 6-23 06-[address] mg tablet 11:00: 00:00 mouth 2 Hosp delfino 19 :00 (two) l times a day. amLODIPine 0 Yes 5mg Q.5D Take 5 mg Me thodi (NORVASC) 5 6-[address] mg tablet 11:00: (two) Hospita 16 times a l day. magnesium 2020-0 Yes 1{tbl} QD Take 1 Meth sung oxide 400 6-[address] mg 11:00: mouth Hospita magnesium 16 daily. l capsule cyanocobala 2020-0 Yes 2000ug QD Take 2,000 Methodi min 6-[address] (CYANOCOBAL 11:00: mouth Hospi ta [place]) 2000 16 daily. l MCG tablet loratadine 0 Yes 10mg QD Take 10 mg M ethodi (CLARITIN) 6-[address] 10 mg 11:00: daily. Hospita tablet 16 l rivaroxaban 0 Yes 15mg QD Take 15 mg Methodi (XARELTO) 6-[address] 15 mg 11:00: daily. Hospita tablet 16 l metoprolol 0 Yes 12.5mg QD Take 12.5 Methodi succinate 6-[address] XL 11:00: mouth Hospita (TOPROL-XL) 16 every l 25 mg 24 hr morning. tablet lisinopriL 0 Yes 40mg Q.5D Take 40 mg M ethodi (PRINIVIL) 6-[address] 10 mg 11:00: (two) Hospita tablet 16 times a l day. APPLE CIDER 0 Yes 2{tbl} QD Take 2 Me thodi VINEGAR 6-[address] ORAL 11:00: mouth Hospita 16 daily. l gummies clopidogrel 2020-0 Yes 75mg QD Take 75 mg Methodi (PLAVIX) 75 6-[address] mg tablet 11:00: daily. Hospit a 16 l levothyroxi 2020-0 Yes 100ug QD Take 100 M ethodi ne 6-[address] (SYNTHROID, 11:00: mouth Hospi ta LEVOTHROID) 16 every l 100 MCG morning. tablet pantoprazol 0 Yes 40mg Q.5D Take 40 mg Methodi e 6-[address] (PROTONIX) 11:00: (two) Hospit a 40 MG EC 16 times a l tablet day. isosorbide 0 Yes 90mg Q.5D Take 90 mg M ethodi mononitrate 6-[address] (IMDUR) 60 11:00: (two) Hospit a MG 24 hr 16 times a l tablet day. Taking 90 mg BID atorvastati 0 Yes 20mg QD Take 20 mg Methodi n (LIPITOR) 6-[address] 20 MG 11:00: daily. Hospita tablet 16 l allopurinol 0 Yes 300mg QD Take 300 M ethodi (ZYLOPRIM) 6-[address] 300 MG 11:00: mouth Hospita tablet 16 daily. l furosemide Yes 20mg QD Take 20 mg M ethodi (LASIX) 20 6-[address] MG tablet 11:00: daily. Hospit a 16 l nitroglycer Yes .4mg Place 0.4 M ethodi in 6-[address] (NITROSTAT) 11:00: the tongue Hospita 0.4 MG SL 16 every 5 l tablet (five) minutes as needed for chest pain. omega-3 0 Yes Q.5D Take by Methodi fatty 6-[address] acids-fish 11:00: (two) Hospit a oil (FISH 16 times a l OIL) day. 360-1,200 Taking 2 mg capsule tablets in the morning and 1 tablet at night coenzyme 2020-0 Yes 200mg Q.5D Take 200 Meth sung Q10 200 mg 6-[address] capsule 11:00: mouth 2 Hospita 16 (two) l times a day. GLUCOSAMINE Yes 1{tbl} Q.5D 1 tablet 2 Methodi HCL 6-23 (two) st (GLUCOSAMIN 11:00: times a Hos rachid E, BULK, 16 day. l MISC) aspirin 2020-0 2020- No 162mg QD Take 162 Meth sung (ECOTRIN) 6-21 06-[address] 81 MG 12:15: 00:00 mouth Hospita enteric 28 :00 daily. l coated tablet metoprolol 2020-0 2020- No 12.5mg Q.5D Take 12.5 Methodi tartrate 6-21 06-[address] (LOPRESSOR) 12:12: 00:00 mouth 2 Ho spita 25 MG 12 :00 (two) l tablet times a day. MONTELUKAST 2020-0 Yes [id number] TAKE 1 Univers 10 mg 8-12 TABLET BY ity of tablet 00:00: MOUTH [place] 00 EVERY DAY Medical Branch MONTELUKAST 2020-0 Yes [id number] TAKE 1 Univers 10 mg 8-12 TABLET BY ity of tablet 00:00: MOUTH [place] 00 EVERY DAY Medical Branch valACYclovi 2019-0 Yes [id number] 500mg Take 1 Univers r 500 mg 3-13 tablet by ity of tablet 00:00: mouth 2 00 (two) Medical times Branch daily. valACYclovi 2019-0 Yes [id number] 500mg Take 1 Univers r 500 mg 3-13 tablet by ity of tablet 00:00: mouth 2 00 (two) Medical times Branch daily. tiZANidine 2019-0 Yes [id number] 4mg Take 1 Univers 4 mg 1-22 capsule by ity of capsule 00:00: mouth 3 00 (three) Medical times Branch daily as needed for Muscle Spasms. tiZANidine 2019-0 Yes [id number] 4mg Take 1 Univers 4 mg 1-22 capsule by ity of capsule 00:00: mouth 3 (three) Medical times Branch daily as needed for Muscle Spasms. magnesium 2018-08 Yes TAKE 1 Univer s oxide 400 2-19 TABLET ity of mg (241.3 00:00: (400 MG [place] mg 00 TOTAL) BY Medical magnesium) MOUTH Branch tablet DAILY FOR 30 DAYS. magnesium 2018-08 Yes TAKE 1 Univer s oxide 400 2-19 TABLET ity of mg (241.3 00:00: (400 MG [place] mg 00 TOTAL) BY Medical magnesium) MOUTH Branch tablet DAILY FOR 30 DAYS. allopurinol 2018-08 Yes 300mg Take 300 U nivers 300 mg 1-26 mg by ity of tablet 15:16: mouth [place] [address] daily. Medical Branch amLODIPine 2018-08 Yes 5mg Take 5 mg Un andi 5 mg tablet -26 by mouth ity of 15:16: daily. [place] [address] Medical Branch aspirin 325 2018- Yes 325mg Take 325 U nivers mg tablet 1-26 mg by ity of 15:16: mouth [place] 41 daily. Medical Branch atorvastati 2018-08 Yes 20mg Take 20 mg Univers n 20 mg 1-26 by mouth ity of tablet 15:16: at [place] [address] bedtime. Medical Branch clopidogrel 2018- Yes 75mg Take 75 mg Univers 75 mg 1-26 by mouth ity of tablet 15:16: daily. [place] [address] Medical Branch Coenzyme 2019- Yes 1{capsu Take 1 Univ ers Q10 200 mg 1-26 le} capsule by ity of Cap 15:16: mouth 2 [place] [address] (two) Medical times Branch daily. omega 2018- Yes 2{capsu Take 2 Univers 3-dha-epa-f 1-26 le} capsules ity of luis oil 15:16: by mouth 2 [place] (FISH OIL) (two) Medical 100-160-1,0 times Branch 00 mg Cap daily. furosemide 2018-08 Yes 20mg Take 20 mg U nivers 20 mg 1-26 by mouth ity of tablet 15:16: daily. [address] Branch isosorbide 2018-08 Yes 60mg Take 60 mg U nivers mononitrate 1-26 by mouth ity of 60 mg 24 hr 15:16: [place]. [place] tablet [address] [place] [address] Branch levothyroxi 2018-08 Yes 100ug Take 100 U nivers ne sodium 1-26 mcg by ity of (LEVOTHYROX 15:16: mouth [place] INE ORAL) 41 daily. Medical Branch lisinopril 2018-08 Yes 20mg Take 20 mg U nivers 20 mg 1-26 by mouth ity of tablet 15:16: daily. [address] Branch MECOBALAMIN 2018- Yes 1000ug Take 1,000 Univers , VITAMIN 1-26 mcg by ity of B12, ORAL 15:16: mouth [place] 41 daily. Medical Branch meloxicam 2018- Yes 15mg Take 15 mg Un andi 15 mg 1-26 by mouth ity of tablet 15:16: daily. [address] Branch metoprolol 2018- Yes 25mg Take 25 mg U nivers succinate 1-26 by mouth ity of XL 25 mg 24 15:16: daily. [place] hr tablet Medical Branch pantoprazol 2018- Yes 40mg Take 40 mg Univers e sodium 1-26 by mouth ity of (PANTOPRAZO 15:16: daily. [place] LE ORAL) Medical Branch nitroglycer 2019- Yes .4mg Place 0.4 U nivers in 0.4 mg 1-26 mg under ity of sublingual 15:16: the tongue [place] tablet 41 every 5 Medical (five) Branch minutes as needed for Chest pain. glucosam 2018-08 Yes 1{tbl} Take 1 Unive rs sul 1-26 tablet by ity of Na/chondr 15:16: mouth 2 [place] (GLUCOSAMIN 41 (two) Medical E-CHONDROIT times Branch IN 3X ORAL) daily. allopurinol 2018-08 Yes 300mg Take 300 U nivers 300 mg 1-26 mg by ity of tablet 15:16: mouth [place] 41 daily. Medical Branch amLODIPine 2018-08 Yes 5mg Take 5 mg Un andi 5 mg tablet 1-26 by mouth ity of 15:16: daily. [place] [address] Medical Branch aspirin 325 2018- Yes 325mg Take 325 U nivers mg tablet 1-26 mg by ity of 15:16: mouth [place] 41 daily. Medical Branch atorvastati 2018-08 Yes 20mg Take 20 mg Univers n 20 mg 1-26 by mouth ity of tablet 15:16: at [place] [address] bedtime. Medical Branch clopidogrel 2018-08 Yes 75mg Take 75 mg Univers 75 mg 1-26 by mouth ity of tablet 15:16: daily. [place] [address] Medical Branch Coenzyme 2018- Yes 1{capsu Take 1 Univ ers Q10 200 mg 1-26 le} capsule by ity of Cap 15:16: mouth 2 [place] [address] (two) Medical times Branch daily. omega 2018- Yes 2{capsu Take 2 Univers 3-dha-epa-f 1-26 le} capsules ity of luis oil 15:16: by mouth 2 [place] (FISH OIL) (two) Medical 100-160-1,0 times Branch 00 mg Cap daily. furosemide 2018- Yes 20mg Take 20 mg U nivers 20 mg 1-26 by mouth ity of tablet 15:16: daily. [place] [address] Medical Branch isosorbide 2018-08 Yes 60mg Take 60 mg U nivers mononitrate 1-26 by mouth ity of 60 mg 24 hr 15:16: daily. [place] tablet Medical Branch levothyroxi 2018-08 Yes 100ug Take 100 U nivers ne sodium 1-26 mcg by ity of (LEVOTHYROX 15:16: mouth [place] [facility] ORAL) 41 daily. Medical Branch lisinopril 2018- Yes 20mg Take 20 mg U nivers 20 mg 1-26 by mouth ity of tablet 15:16: daily. [place] [address] Medical Branch MECOBALAMIN 2018-08 Yes 1000ug Take 1,000 Univers , VITAMIN 1-26 mcg by ity of B12, ORAL 15:16: mouth [place] 41 daily. Medical Branch meloxicam 2018-08 Yes 15mg Take 15 mg Un andi 15 mg 1-26 by mouth ity of tablet 15:16: daily. [place] [address] Medical Branch metoprolol 2018-08 Yes 25mg Take 25 mg U nivers succinate 1-26 by mouth ity of XL 25 mg 24 15:16: daily. [place] hr tablet 41 Medical Branch pantoprazol 2018-08 Yes 40mg Take 40 mg Univers e sodium 1-26 by mouth ity of (PANTOPRAZO 15:16: daily. [place] LE ORAL) Medical Branch nitroglycer 2018-[address] 0.4 U nivers in 0.4 mg 1-26 mg under ity of sublingual 15:16: the tongue [place] tablet 41 every 5 Medical (five) Branch minutes as needed for Chest pain. glucosam 2018-08 Yes 1{tbl} Take 1 Unive rs sul 1-26 tablet by ity of Na/chondr 15:16: mouth 2 [place] (GLUCOSAMIN 41 (two) Medical E-CHONDROIT times Branch IN 3X ORAL) daily. 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, Duration: 30 day, Stop date: 07/15/16 9:00:00 [employer]TE[employer]ATION ARCHITECT Furosemide 2015-08 No 20 mg, 1 Mem oria 20 MG Oral 08-16 tab, l Tablet 15:00: Route: PO, Dyan nn Drug form: TAB, Daily, Dosing Weight 104.545, kg, Start date: 06/16/16 9:00:00 [employer] INTEGRATION ARCHITECT, Duration: 30 day, Stop date: 07/15/16 9:00:00 [employer]TE[employer] ARCHIT[employer] Vitamin B12 2015-08 No Notes: Donnie jeana 08-16 (Same As: l 15:00: Vitamin [place] 00 B-12) Zyrtec 2015-08 No Notes: Memoria 1-09 (Same As: l 15:00: Zyrtec) Amlodipine 2015-08 No Notes: Memor ia -09 (Same as: l 15:00: Norvasc) Allopurinol 2015-08 No Notes: Donnie jeana -09 (Same as: l 15:00: Zyloprim) Thyroxine 2015-08 No 100 Memoria 1-09 microgram, l 12:30: 1 tab, Route: PO, Drug form: TAB, Q630AM, Dosing Weight 104.545, kg, Start date: 06/16/16 6:30:00 SAP INTEGRATION ARCHITECT, Duration: 30 day, Stop date: 07/15/16 6:30:00 SAP INTEGRATION ARCHITECT isosorbide 2015-08 No Notes: Memor ia mononitrate 08 (Same l extended 20:00: as:Imdur) "Do Not Crush" Take on empty stomach/ full glass of water. Do not crush Lisinopril 2015-08 No Notes: Memor ia 1-08 (Same as: l 19:09: Prinivil, Zestril) Aspirin 81 2015-08 No Notes: Memor ia MG Enteric -08 (Same As: l Coated 15:00: Ecotrin) clopidogrel 2015-08 No Notes: Donnie jeana 1-08 (Same As: l 15:00: Plavix) Saline 2015-08 No Notes: Memoria Flush 0.9% 08 (Same as: l 03:00: BD Posiflush) Famotidine 2015-08 No Notes: Memor ia 1-08 (Same as: l 03:00: Pepcid) atorvastati 2015-08 No Notes: Donnie jeana n 1-08 Same as l 03:00: Lipitor Amlodipine 2015-08 Yes 5 mg, PO, Me moria 1-07 Daily, 0 l 23:58: Refill(s) Co Q-10 2015-08 Yes 200 mg, Memoria 1-07 PO, BID, 0 l 23:58: Refill(s) lisinopril 2015-08 Yes 20 mg = 1 Me moria 20 mg oral -07 tab, PO, l tablet 23:58: Daily, 0 [place] 00 Refill(s) levothyroxi 2015-08 Yes 100 Memori a ne 100 mcg 07 microgram l (0.1 mg) 23:58: = 1 tab, Dyan nn oral tablet 00 PO, Daily, 0 Refill(s) allopurinol 2015-08 Yes 300 mg = 1 Memoria 300 mg oral 08-14 tab, PO, l tablet 23:58: Daily, 0 [place] 00 Refill(s) Vitamin B12 2015-08 Yes 2000 mcg, M emoria 08-14 PO, Daily, l 23:58: 0 [place] 00 Refill(s) atorvastati 2015-08 Yes 20 mg = 1 M emoria n 20 mg 08-14 tab, PO, l oral tablet 23:58: Bedtime, 0 [place] 00 Refill(s) Chondroitin 2015-08 Yes 1 cap, PO, Memoria -Glucosamin 08-14 BID, 0 l e 23:58: Refill(s) [place] 00 Aspirin 2015-08 Yes 325 mg, Memoria Enteric 08-14 PO, Daily, l Coated 23:58: 0 [place] 00 Refill(s) clopidogrel 2015-08 Yes 75 mg = 1 M emoria 75 MG Oral 08-14 tab, PO, l Tablet 23:58: Daily, # [place] [Plavix] 00 30 tab, 0 Refill(s) isosorbide 2015-08 Yes 60 mg, PO, M emoria mononitrate 08-14 [id number], 0 l extended 23:58: Refill(s) Herm stacey release 00 pantoprazol 2015-08 Yes 40 mg = 1 M emoria e 40 mg 08-14 tab, PO, l oral 23:58: BID, 0 [place] enteric 00 Refill(s) coated tablet Fish Oil 2015-08 Yes 1,200 mg = Mem oria 1200 mg 07 1 cap, PO, l oral 23:58: BID, 0 [place] capsule 00 Refill(s) cetirizine 2015-08 Yes 10 mg = 1 Me moria hydrochlori 07 tab, PO, l de 10 MG 23:58: Daily, 0 Dyan nn Oral Tablet 00 Refill(s) [Zyrtec] meloxicam 2015-08 Yes 15 mg = 1 Mem oria 15 mg oral 08-14 tab, PO, l tablet 23:58: [id number], 0 Dyan Refill(s) Nitroglycer 2015-08 Yes 0.4 mg = 1 Memoria in 0.4 MG 08-14 tab, SL, l Sublingual 23:58: PRN, PRN Her bhakta Tablet 00 Chest [Nitrostat] Pain, # 100 tab, 0 Refill(s) metoprolol 2015-08 Yes 12.5 mg, Mem oria tartrate 08-14 BID, 0 l 23:58: Refill(s) [place] Furosemide 2015-08 Yes 20 mg = 1 Me moria 20 MG Oral 08-14 tab, PO, l Tablet 23:58: Daily, 0 [place] 00 Refill(s) heparin 2015-08 No Notes: Memoria 08-14 porcine l 22:00: heparin Iohexol 2015-08 No 60 mL, Memoria 08-14 Route: l 21:24: IVP, Drug Form: SOLN, Dosing Weight 102.273, kg, ONCALL, STAT, Start date: 06/14/16 15:24:00 [employer] INTEGRATION ARCHITECT, Duration: 1 doses or times, Dose = 2.2ml/kg, Max dose = 100ml -- "To be infused by Radiology Staff ONLY" Hydralazine 2015-08 No Notes: Donnie jeana 08-14 (Same as: l 20:34: Apresoline ) Push over 5 minutes Saline 2015-08 No Notes: Memoria Flush 0.9% 08-14 (Same as: l 20:34: BD Posiflush) Labetalol 2015-08 No 10 mg, 2 Donnie jeana -07 mL, Route: l 20:34: IVP, Drug form: INJ, Q15Min, Dosing Weight 102.273, kg, PRN Hypertensi on, Start date: 06/14/16 14:34:00 [employer] INTEGRATION ARCHITECT, Duration: 3 doses or times, Stop date: 07/14/16 0:00:00 [employer] INTEGRATION ARCHITECT Acetaminoph 2015-08 No Notes: Do M emoria en 08-14 not exceed l 20:34: 4 gm/day. (Same as: Tylenol) sodium 2016-1 No 1,000 mL, Memori a chloride 1-07 Rate: 75 l 0.9% 1000 20:29: ml/hr, Pineda hyman ml INJ 00 Infuse 1,000 mL over: 13.3 hr, Route: IV, Dosing Weight 102.273 kg, Total Volume: 1,000, Start date: 06/14/16 14:29:00 [employer] INTEGRATION ARCHITECT, Stop date: 07/14/16 14:28:00 [employer] INTEGRATION ARCHITECT Immunizations Ordered Immunization Filled Immunization Date Status Commen ts Source Name Name PFIZER COVID-19 MRNA 2020-09-17 Completed Meth odist VACCINATION 00:00:00 [facility] PFIZER COVID-19 MRNA 2020-08-27 Completed Meth odist VACCINATION 00:00:00 [facility] pneumococcal 2008-09-15 Completed [facility] 23-valent vaccine 22:30:00 Vital Signs Vital Name Observation Time Observation Value Comments Source Systolic blood 2021-12-28 19:22:00 97 mm[Hg] Univer sity [facility] Diastolic blood 2021-12-28 19:22:00 59 mm[Hg] Unive rsity [facility] Heart rate 2021-12-28 19:22:00 71 /min [facility] Body temperature 2021-12-28 19:22:00 36.33 [facility] [facility] height 2021-12-28 19:22:00 179.1 cm [facility] Body weight 2021-12-28 19:22:00 101.651 kg [facility] BMI 2021-12-28 19:22:00 31.70 kg/m2 [facility] Systolic blood 2021-01-28 14:00:00 121 mm[Hg] Method [facility] pressure Diastolic blood 2021-01-28 14:00:00 78 mm[Hg] [facility] pressure Heart rate 2021-01-28 14:00:00 79 /min [facility] Oxygen saturation in 2021-01-28 14:00:00 97 /min [facility] Arterial blood by Pulse oximetry Respiratory rate 2021-01-28 12:30:00 16 /min [facility] Body temperature 2021-01-28 12:00:00 36.67 Lynn [facility] Body height 2021-01-27 20:00:00 177.8 cm [facility] Body weight 2021-01-27 13:09:00 99.927 kg [facility] BMI 2021-01-27 13:09:00 31.61 kg/m2 [facility] Respitory Rate 2016-06-15 21:00:00 Memori al [facility] Systolic (mm Hg) 2016-06-15 21:00:00 Donnie rial [place] Diastolic (mm Hg) 2016-06-15 21:00:00 Mem orial [place] Systolic (mm Hg) 2016-06-15 20:00:00 Donnie rial Mark Diastolic (mm Hg) 2016-06-15 20:00:00 Mem orial [facility] Respitory Rate 2016-06-15 20:00:00 Memori al [facility] Respitory Rate 2016-06-15 19:00:00 Mem[facility] al [facility] Systolic (mm Hg) 2016-06-15 19:00:00 Donnie rial Mark Diastolic (mm Hg) 2016-06-15 19:00:00 Mem orial [facility] Temperature Oral (F) 2016-06-15 13:05:00 97.1 F [facility] [place] Temperature Oral (F) 2016-06-15 01:46:00 97.9 F [facility] BMI Calculated 2016-06-14 23:18:00 Memori al [place] Weight 2016-06-14 23:18:00 [facility] Height 2016-06-14 23:18:00 177.8 cm [facility] Temperature Oral (F) 2016-06-14 21:11:00 98.0 F [facility] Weight 2016-06-14 17:59:00 [facility] [place] Heart Rate 2016-06-14 17:59:00 [facility] Procedures Procedure Date / Time Performing Clinician Source Performed ECG PRE/POST OP 2021-01-28 09:51:32 Theodore Hudson HC COMPLETE BLD COUNT 2021-01-28 08:24:00 Theodore Hudson [facility] W/AUTO DIFF BASIC METABOLIC PANEL 2021-01-28 08:24:00 Theodore Hudson [facility] MAGNESIUM LEVEL 2021-01-28 08:24:00 Theodore Hudson URIC ACID LEVEL 2021-01-28 08:24:00 Theodore Hudson spital PROTHROMBIN TIME WITH INR 2021-01-28 08:24:00 Theodore Hudson [facility] ESTIMATED GFR 2021-01-28 08:24:00 Theodore Hudson spital ECG PRE/POST OP 2021-01-27 17:10:28 Theodore Hudson spital CV PCI 2021-01-27 15:56:30 HustTheodore spital LEFT VENTRICULOGRAPHY 2021-01-27 [facility]:56[facility] 2021-01-27 15:56:30 HustTheodore [facility] GRAFT W CORS ACTIVATED CLOTTING TIME 2021-01-27 15:53:00 HustTheodore Fernanda [facility] ACTIVATED CLOTTING TIME 2021-01-27 15:36:00 HustTheodore Fernanda [facility] 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 2</sup> Plan of Care Planned Activity Planned Date Details Comments Source Future Scheduled 2021-09-07 INFLUENZA VACCINE Method [facility] Test 16:46:39 [code = INFLUENZA VACCINE] Future Scheduled 2021-09-07 COVID-19 VACCINE (3 [facility] Test 16:46:39 - Booster for Pfizer series) [code = COVID-19 VACCINE (3 - Booster for Pfizer series)] Future Scheduled 2021-09-07 SHINGLES VACCINES Method [facility] Test 16:46:39 (#2) [code = SHINGLES VACCINES (#2)] Encounters Start End Encounter Admission Attending Care Care Encounter Source Date/Time Date/Time Type Type Clinicians Facility Department ID 2021-12-30 2021-12-30 Outpatient Faye BRICEÑO [facility] [id number] [facility] 08:45:00 08:45:00 VALENTINA purvis [facility] 2021-12-28 2021-12-28 Outpatient R CESAR [facility] [id number] [facility] 14:35:50 23:59:[address] [facility] 2021-12-28 2021-12-28 Office Cesar [facility] [id number] [facility] 14:15:00 15:13:11 [facility] AT [phone] [facility] KEYSHA [address] [place] [address] 2021-10-28 2021-10-28 Outpatient [facility] [id number] [place] 00:00:00 00:00:00 AYAN [address] 2021-10-28 2021-10-28 Outpatient [facility] [id number] [place] 00:00:00 00:00:00 AYAN [address] 2021-01-27 2021-01-28 Hospital [facility], 1.2.840.1 [id number] Methodi 06:04:00 11:00:00 Encounter Theodore Barber [id number] 3.430.2.7 Hospit a .3.139836 l .8 2021-01-27 2021-01-27 Surgery Hust, 1.2.840.1 [id number] Methodi 08:50:00 10:10:00 Theodore Barber [address]7090.1.[address] 3.430.2.7 Hospit a .3.626163 l .8 2021-01-26 2021-01-26 Travel 1.2.840.1 [id number] [id number] Methodi 00:00:00 00:00:[address] 3.430.2.7 0.2.7.3.698 spita .3.292046 084.8 l .8 2021-01-26 2021-01-26 Documentat Provider, 1.2.840.1 [id number] Methodi 00:00:00 00:00:00 ion Unknown [id number] 3.430.2.7 Hospit a .3.617704 l .8 2021-01-23 2021-01-23 Community [facility], 1.2.840.1 [id number] Methodi 00:00:00 00:00:00 Orders Theodore Barber [address]1732.1.[address] 3.430.2.7 Hospit a .3.487346 l .8 2021-01-15 2021-01-15 Community [facility], 1.2.840.1 [id number] Methodi 00:00:00 00:00:00 Orders Theodore Barber [id number] 3.430.2.7 Hospit a .3.461303 l .8 2020-09-17 2020-09-17 Clinical 1.2.840.1 [id number] [facility]i 12:26:37 12:37:[address] 3.430.2.7 Hospit a .3.156070 l .8 2020-09-17 2020-09-17 Travel 1.2.840.1 1.2.128.391 [id number] Methodi 00:00:00 00:00:[address] 3.430.2.7 0.2.7.3.698 Ho spita .3.134285 084.8 l .8 2020-08-27 2020-08-27 Outpatient [facility] [id number] [place] 00:00:00 00:00:[address] 2019-10-02 2019-10-02 Outpatient [facility] [id number] [place] 00:00:00 00:00:00 THEODORE [address] 2019-07-22 2019-07-26 Inpatient [facility] [id number] [place] 00:00:00 00:00:00 THEODORE [address] 2016-06-14 2016-06-15 Inpatient [facility] [id number] Memoria 17:56:00 22:15:00 faye Flores 12 [facility] Results Test Description Test Time Test Comments Results Result Comments Source ECG Pre/Post Op 2021-01-28 22:09:31 Test Item Value Reference Range Interpretation Comme nts Ventricular rate (test code = 253) Atrial rate (test code = 255) QRSD interval (test code = 260) QT interval (test code = 264) QTC interval (test code = 265) QRS axis 1 (test code = 268) T wave axis (test code = 270) EKG impression (test code = 273) Atrial fibrillation with slow vent ricular response-Possible Inferior infarct (cited on or before 27-JAN-2021)-Abnormal ECG-In automated comparison with ECG of 27-JAN-2021 12:10,-No significant change was found- [facility] [id number] 16:02:12 Test Item Value Reference Range Interpretation Comments Activated clotting time See_Comment H Oper ator Name: Jermaine (test code = 5298) AllisonOmega evice ID: [id number] [Auto mated message] The sy stem which generated this result transmit oriana reference range : 96 - 152 sec. The re ference range was not u sed to interpret this result as normal/abnor mal. Lab Interpretation Abnormal (test code = 25432-9) [facility] [id number] 08:15:00 Test Item Value Reference Range Interpretation Comments Troponin-I (test code no gt See_Comment [Auto mated message] The = Troponin-I) system which g enerated this result transmit oriana reference range : <=0.40. The reference r jennifer was not used to interpr et this result as ana l/abnormal. [facility] [place] [id number] 08:15:00 Test Item Value Reference Range Interpretation Comments Phosphorus (test code = Phosphorus) 2.5 2.5-4.5 [facility] [id number] 08:15:00 Test Item Value Reference Range Interpretation Comments Magnesium Lvl (test code = Magnesium 1.8 1.8-2.4 Lvl) [facility] [id number] 08:15:00 Test Item Value Reference Range Interpretation Comments eGFR (test code = eGFR) 87 [facility] [id number] 08:15:00 Test Item Value Reference Range Interpretation Comments Potassium Lvl (test code = Potassium 3.5 3.5-5.1 Lvl) [facility]2016-11-08 08:15:00 Test Item Value Reference Range Interpretation Comments Sodium Lvl (test code = Sodium Lvl) 141 135-145 [facility]2016-11-08 08:15:00 Test Item Value Reference Range Interpretation Comments CO2 (test code = CO2) 24 24-32 [facility]2016-11-08 08:15:00 Test Item Value Reference Range Interpretation Comments Chloride Lvl (test code = Chloride Lvl) 108 95-109 [facility]2016-11-08 08:15:00 Test Item Value Reference Range Interpretation Comments AGAP (test code = AGAP) 12.5 10.0-20.0 [facility]2016-11-08 08:15:00 Test Item Value Reference Range Interpretation Comments Glucose Lvl (test code = Glucose Lvl) 94 70-99 [facility]2016-11-08 08:15:00 Test Item Value Reference Range Interpretation Comments Creatinine Lvl (test code = Creatinine 0.81 0.50-1.40 Lvl) [facility]2016-11-08 08:15:00 Test Item Value Reference Range Interpretation Comments BUN (test code = BUN) 12 7-22 [facility]2016-11-08 08:15:00 Test Item Value Reference Range Interpretation Comments Calcium Lvl (test code = Calcium Lvl) 7.6 8.5-10.5 [facility]mcghwoWNPNXFHFKA3653-73-41 08:15:00 Test Item Value Reference Range Interpretation Comments Segs (test code = Segs) 72.1 45.0-75.0 [facility] CenterTvlquzmPEZQPEHKCL5007-91-05 08:15:00 Test Item Value Reference Range Interpretation Comments Segs-Bands # (test code = Segs-Bands #) 4.0 1.5-8.1 [facility] CenterBjglquuCOIBJAKBPS3405-01-21 08:15:00 Test Item Value Reference Range Interpretation Comments Monocytes (test code = Monocytes) 7.7 2.0-12.0 [facility] CenterMpmkknrHJJXYBWTQJ2610-12-64 08:15:00 Test Item Value Reference Range Interpretation Comments Eosinophils (test code = 3.0 See_Comment [A utomated message] The Eosinophils) system which ge nerated this result tra nsmitted reference range : <=4.0. The reference r jennifer was not used to int erpret this result as normal/abnormal . [facility] CenterFwktgvuQFKDSYOJTO6995-23-71 08:15:00 Test Item Value Reference Range Interpretation Comments Basophils (test code = 0.3 See_Comment [Aut omated message] The Basophils) system which ge nerated this result tra nsmitted reference range : <=1.0. The reference r jennifer was not used to int erpret this result as normal/abnormal . [facility] CenterVkbofltXRWSYMDIRW6332-03-17 08:15:00 Test Item Value Reference Range Interpretation Comments Monocytes # (test code 0.4 See_Comment [Aut omated message] The = Monocytes #) system which generated this result tra nsmitted reference range : <=0.8. The reference r jennifer was not used to int erpret this result as normal/abnormal . [facility] CenterGaqmjyaRITCOLFWFW2006-68-48 08:15:00 Test Item Value Reference Range Interpretation Comments Lymphocytes # (test code = Lymphocytes 0.9 1.0-5.5 #) [facility] CenterEpvoqdtNKKHGUZOCJ9322-99-77 08:15:00 Test Item Value Reference Range Interpretation Comments Eosinophils # (test code 0.2 See_Comment [A utomated message] The = Eosinophils #) system whic h generated this result tra nsmitted reference range : <=0.5. The reference r jennifer was not used to int erpret this result as normal/abnormal . [facility] CenterNkizexcGPFFJPTMUW4905-51-54 08:15:00 Test Item Value Reference Range Interpretation Comments Lymphocytes (test code = Lymphocytes) 16.9 20.0-40.0 [facility] CenterHgsrmumVERDDGPDOO9028-31-91 08:15:00 Test Item Value Reference Range Interpretation Comments PTT (test code = PTT) 32.7 s 22.9-35.8 [facility] CenterPviodcuOBZEPJHZDK1058-72-95 08:15:00 Test Item Value Reference Range Interpretation Comments PT (test code = PT) 16.9 s 12.0-14.7 [facility] CenterLylhojqWHGIYUOWOO4435-11-33 08:15:00 Test Item Value Reference Range Interpretation Comments INR (test code = INR) 1.35 0.85-1.17 [place] [id number] 08:15:00 Test Item Value Reference Range Interpretation Comments MCHC (test code = MCHC) 34.0 32.0-36.0 [facility] CenterYjjyngpKIMUKOXDUF9932-41-55 08:15:00 Test Item Value Reference Range Interpretation Comments MPV (test code = MPV) 9.7 7.4-10.4 [facility] CenterQaudqjkXDFRGUPTHB3331-05-74 08:15:00 Test Item Value Reference Range Interpretation Comments RDW (test code = RDW) 13.7 11.5-14.5 [facility] CenterFoggyawAFCTHICWWC5146-15-07 08:15:00 Test Item Value Reference Range Interpretation Comments Platelet (test code = Platelet) 118 133-[address] [facility] [place], TxJoverowLUNMZJLJFW6057-23-01 08:15:00 Test Item Value Reference Range Interpretation Comments WBC (test code = WBC) 5.5 3.7-10.4 [facility] CenterOtpqvoeFBYMJDAOBU0293-30-59 08:15:00 Test Item Value Reference Range Interpretation Comments RBC (test code = RBC) 4.25 4.70-6.10 [facility] CenterZasxyjpJRTVEUMSQD5263-53-04 08:15:00 Test Item Value Reference Range Interpretation Comments Hgb (test code = Hgb) 12.8 14.0-18.0 [facility] CenterFejfuncNSLBOZEOQI4772-22-89 08:15:00 Test Item Value Reference Range Interpretation Comments Hct (test code = Hct) 37.7 42.0-54.0 [facility] CenterZhucweaFFEDLGAXFO8304-91-52 08:15:00 Test Item Value Reference Range Interpretation Comments MCV (test code = MCV) 88.7 80.0-94.0 [facility] CenterBrrckxoUZNOJOFFPO8738-45-96 08:15:00 Test Item Value Reference Range Interpretation Comments MCH (test code = MCH) 30.2 pg 27.0-31.0 [facility] CenterVizmcemERLJDDRSZF5086-83-31 08:15:00 Test Item Value Reference Range Interpretation Comments RPR (test code = RPR) Non Reactive (06/15/16 2:15 AM) [facility] [place], TxAvovmpuNDNRLFJMFW9279-60-15 08:15:00 Test Item Value Reference Range Interpretation Comments HIV 1/2 Ab (test code Negative *NA*(06/15/16 = HIV 1/2 Ab) 2:15 AM) [facility], TxCARDIAC [id number] 20:52:00 Test Item Value Reference Range Interpretation Comments Troponin-I (test code no gt See_Comment [Auto mated message] The = Troponin-I) system which g enerated this result transmit oriana reference range : <=0.40. The reference r jennifer was not used to interpr et this result as ana l/abnormal. [facility] [place] [employer] [id number] 20:52:00 Test Item Value Reference Range Interpretation Comments Bili Indirect (test 0.4 See_Comment [Automa oriana message] The code = Bili Indirect) system which generated this result tra nsmitted reference range : <=1.0. The reference r jennifer was not used to int erpret this result as normal/abnormal . [facility] [place] [employer]x[facility] [id number] 20:52:00 Test Item Value Reference Range Interpretation Comments A/G Ratio (test code = A/G Ratio) 1.2 0.7-1.[address] [facility] [place] [employer]xInd[employer] [id number] 20:52:00 Test Item Value Reference Range Interpretation Comments Bili Direct (test code 0.1 See_Comment [Aut omated message] The = Bili Direct) system which generated this result tra nsmitted reference range : <=0.3. The reference r jennifer was not used to int erpret this result as ana l/abnormal. [facility] [place] [employer]x[facility] [id number] 20:52:00 Test Item Value Reference Range Interpretation Comments Bili Total (test code = Bili Total) 0.5 0.2-1.[address] [facility] [place] [employer]xInd[employer] [id number] 20:52:00 Test Item Value Reference Range Interpretation Comments Globulin (test code = Globulin) 3.1 2.7-4.2 [facility] [id number] 20:52:00 Test Item Value Reference Range Interpretation Comments Total Protein (test code = Total 6.8 6.4-8.4 Protein) [facility] [place] [employer] [id number] 20:52:00 Test Item Value Reference Range Interpretation Comments AST (test code = AST) 14 See_Comment [Auto mated message] The system which ge nerated this result transmit oriana reference range : <=37. The reference range was not used to interpr et this result as ana l/abnormal. [facility] [id number] 20:52:00 Test Item Value Reference Range Interpretation Comments Alk Phos (test code = Alk Phos) 59 39-136 [facility] [place] [id number] 20:52:00 Test Item Value Reference Range Interpretation Comments ALT (test code = ALT) 19 See_Comment [Auto mated message] The system which ge nerated this result transmit oriana reference range : <=65. The reference range was not used to interpr et this result as ana l/abnormal. [facility] [place] [id number] 20:52:00 Test Item Value Reference Range Interpretation Comments Albumin Lvl (test code = Albumin Lvl) 3.7 3.5-5.0 [facility]G [id number] 20:52:00 Test Item Value Reference Range Interpretation Comments UDS Note (test code = See Note *NA*(06/14/16 UDS Note) 2:52 PM) [facility] CenterannISORG [id number] 20:52:00 Test Item Value Reference Range Interpretation Comments U Opiate Scr (test Negative *NA*(06/14/16 code = U Opiate Scr) 2:52 PM) [facility] CenterannDR[facility] [id number] 20:52:00 Test Item Value Reference Range Interpretation Comments U Phencyc Scr (test Negative *NA*(06/14/16 code = U Phencyc Scr) 2:52 PM) [facility]annDR[facility] [id number] 20:52:00 Test Item Value Reference Range Interpretation Comments U Cocaine Scr (test Negative *NA*(06/14/16 code = U Cocaine Scr) 2:52 PM) [facility] [employer]DR[facility] [id number] 20:52:00 Test Item Value Reference Range Interpretation Comments U Benzodia Scr (test Negative *NA*(06/14/16 code = U Benzodia Scr) 2:52 PM) [facility] [employer] InsuranceannDRUG [id number] 20:52:00 Test Item Value Reference Range Interpretation Comments U Lizeth Scr (test code Negative *NA*(06/14/16 = U Lizeth Scr) 2:52 PM) [facility] [id number] 20:52:00 Test Item Value Reference Range Interpretation Comments U Amph Scr (test code Negative *NA*(06/14/16 = U Amph Scr) 2:52 PM) [facility] [place], TxDRUG [id number] 20:52:00 Test Item Value Reference Range Interpretation Comments U Cannab Scr (test Negative *NA*(06/14/16 code = U Cannab Scr) 2:52 PM) [facility]BuwqyztJUYVYIODTDUX9506-88-13 20:52:00 Test Item Value Reference Range Interpretation Comments AGAP (test code = AGAP) 15.1 10.0-20.0 [facility] HospitalAzrnxuiITRDIOEQEBJU7387-19-50 20:52:00 Test Item Value Reference Range Interpretation Comments eGFR (test code = eGFR) 73 [facility] HospitalCpyipgwKUIJWTDYSZUR5180-90-86 20:52:00 Test Item Value Reference Range Interpretation Comments Potassium Lvl (test code = Potassium 4.1 3.5-5.1 Lvl) [facility] HospitalUgbmuruJEZHJHXIXJYK8209-13-89 20:52:00 Test Item Value Reference Range Interpretation Comments Sodium Lvl (test code = Sodium Lvl) 139 135-145 [facility] HospitalIwlrpzySKNYLHOWITEQ0798-15-31 20:52:00 Test Item Value Reference Range Interpretation Comments BUN (test code = BUN) 11 7-22 [facility] HospitalDzuqovnEXPOGVHXALPW3954-97-44 20:52:00 Test Item Value Reference Range Interpretation Comments Chloride Lvl (test code = Chloride Lvl) 104 95-109 [facility] HospitalBsasozkBXHUWAXZWAPS5698-37-63 20:52:00 Test Item Value Reference Range Interpretation Comments Creatinine Lvl (test code = Creatinine 1.00 0.50-1.40 Lvl) [facility] HospitalBpxvlqxKWADLCANFSWU0075-10-99 20:52:00 Test Item Value Reference Range Interpretation Comments CO2 (test code = CO2) 24 24-32 [facility] HospitalVhwpudcQYMCSFJNAHBG3299-68-80 20:52:00 Test Item Value Reference Range Interpretation Comments Calcium Lvl (test code = Calcium Lvl) 9.2 8.5-10.5 [facility] HospitalSiqwtyeAZXQRXTEZTIF7511-60-41 20:52:00 Test Item Value Reference Range Interpretation Comments Glucose Lvl (test code = Glucose Lvl) 87 70-[address] [facility], TxMbzvgcvDOKFJPWACH0129-20-53 20:52:00 Test Item Value Reference Range Interpretation Comments Sed Rate (test code = 10 See_Comment [Auto mated message] The Sed Rate) system which ge nerated this result transmit oriana reference range : <=15. The reference range was not used to interpr et this result as ana l/abnormal. [facility] CenterQzmwdqfNZZDEEYZVM7355-32-83 20:52:00 Test Item Value Reference Range Interpretation Comments MPV (test code = MPV) 9.8 7.4-10.4 [facility] CenterJaykmocIMKFRRGIOQ6050-72-47 20:52:00 Test Item Value Reference Range Interpretation Comments Platelet (test code = Platelet) 132 133-450 [facility] CenterLbncoirLNFFGLKUTU0051-53-62 20:52:00 Test Item Value Reference Range Interpretation Comments MCV (test code = MCV) 88.4 80.0-94.0 [facility] CenterOpdgeehXVVSZWYNSO8529-21-18 20:52:00 Test Item Value Reference Range Interpretation Comments MCH (test code = MCH) 29.4 pg 27.0-31.0 [facility] CenterYddkifmUPRKFQSYGX2453-07-76 20:52:00 Test Item Value Reference Range Interpretation Comments Hct (test code = Hct) 41.4 42.0-54.0 [facility] CenterNwzubnpNINKKYJVLR5082-89-49 20:52:00 Test Item Value Reference Range Interpretation Comments RDW (test code = RDW) 13.8 11.5-14.5 [facility] CenterQwzbcaoDOIUFVUGLK4043-80-92 20:52:00 Test Item Value Reference Range Interpretation Comments MCHC (test code = MCHC) 33.3 32.0-36.0 [facility] CenterKbvpyyvMOHFEOJGNO9931-01-09 20:52:00 Test Item Value Reference Range Interpretation Comments Hgb (test code = Hgb) 13.8 14.0-18.0 [facility] CenterQuqwpsvHKFHZOHTGX9738-98-98 20:52:00 Test Item Value Reference Range Interpretation Comments RBC (test code = RBC) 4.68 4.70-6.10 [facility] CenterSgodrrfWYVFPZAABW7546-42-29 20:52:00 Test Item Value Reference Range Interpretation Comments WBC (test code = WBC) 5.8 3.7-10.4 [facility] CenterCeiderqAHDKAEDLSU2818-09-90 20:52:00 Test Item Value Reference Range Interpretation Comments Segs (test code = Segs) 68.9 45.0-75.0 [facility] CenterRxnwebmGYYGESCBNZ5860-56-08 20:52:00 Test Item Value Reference Range Interpretation Comments Lymphocytes (test code = Lymphocytes) 16.2 20.0-40.0 [facility] CenterHjohrwpHVQDTFVEXK1902-74-58 20:52:00 Test Item Value Reference Range Interpretation Comments Eosinophils (test code = 3.5 See_Comment [A utomated message] The Eosinophils) system which ge nerated this result tra nsmitted reference range : <=4.0. The reference r jennifer was not used to int erpret this result as normal/abnormal . [facility] CenterLdcgadgDLKDESWLJV4711-78-48 20:52:00 Test Item Value Reference Range Interpretation Comments Monocytes (test code = Monocytes) 8.6 2.0-12.0 [facility] CenterKzepwwkRDRAZTNADP8482-39-96 20:52:00 Test Item Value Reference Range Interpretation Comments Segs-Bands # (test code = Segs-Bands #) 4.0 1.5-8.1 [facility] CenterOsqfxtxPJQEMTFQWD3552-30-15 20:52:00 Test Item Value Reference Range Interpretation Comments Basophils (test code = 2.8 See_Comment [Aut omated message] The Basophils) system which ge nerated this result tra nsmitted reference range : <=1.0. The reference r jennifer was not used to int erpret this result as normal/abnormal . [id number] 20:52:00 Test Item Value Reference Range Interpretation Comments Monocytes # (test code 0.5 See_Comment [Aut omated message] The = Monocytes #) system which generated this result tra nsmitted reference range : <=0.8. The reference r jennifer was not used to int erpret this result as normal/abnormal . [facility] CenterZbivrqbOTTDCUJNCW4606-33-18 20:52:00 Test Item Value Reference Range Interpretation Comments Lymphocytes # (test code = Lymphocytes 0.9 1.0-5.5 #) [facility] CenterBxwqrcqBDZVIAFSFX1997-29-16 20:52:00 Test Item Value Reference Range Interpretation Comments Basophils # (test code 0.2 See_Comment [Aut omated message] The = Basophils #) system which generated this result tra nsmitted reference range : <=0.2. The reference r jennifer was not used to int erpret this result as normal/abnormal . [facility] CenterKpehzkoMBDBWTWJAH5659-22-64 20:52:00 Test Item Value Reference Range Interpretation Comments Eosinophils # (test code 0.2 See_Comment [A utomated message] The = Eosinophils #) system whic h generated this result tra nsmitted reference range : <=0.5. The reference r jennifer was not used to int erpret this result as normal/abnormal . [facility] [id number] 20:52:00 Test Item Value Reference Range Interpretation Comments LDL (Calculated) (test code = LDL 46 (Calculated)) [facility] BjtjeoxBMXZAO3108-08-62 20:52:00 Test Item Value Reference Range Interpretation Comments VLDL (test code = VLDL) 18 [facility] DpbouaqGPQNII2371-13-64 20:52:00 Test Item Value Reference Range Interpretation Comments Trig (test code = Trig) 88 [facility] OpokeunNQFTTY7454-21-93 20:52:00 Test Item Value Reference Range Interpretation Comments HDL (test code = HDL) 25 [facility] UribwixUTKQGK0834-11-31 20:52:00 Test Item Value Reference Range Interpretation Comments Chol (test code = Chol) 89 [facility]GBWOY9399-70-27 20:52:00 Test Item Value Reference Range Interpretation Comments CHD Risk (test code = CHD Risk) 3.56 4.00-7.[address] [facility] [place] [id number] 20:52:00 Test Item Value Reference Range Interpretation Comments Hgb A1C (test code = Hgb A1C) 5.3 [facility] [id number] 20:52:00 Test Item Value Reference Range Interpretation Comments UA RBC (test code = 0-2 /HPF See_Comment [Automa oriana message] The UA RBC) system which ge nerated this result tra nsmitted reference range : <=2. The reference range was not used to interpr et this result as ana l/abnormal. [facility] [id number] 20:52:00 Test Item Value Reference Range Interpretation Comments UA Bacteria (test code = None Seen (06/14/16 UA Bacteria) 2:52 PM) [facility] [id number] 20:52:00 Test Item Value Reference Range Interpretation Comments UA Mucus (test code = None Seen (06/14/16 UA Mucus) 2:52 PM) [facility] [id number] 20:52:00 Test Item Value Reference Range Interpretation Comments UA WBC (test code = UA None Seen (06/14/16 2:52 WBC) PM) [facility] AND [id number] 20:52:00 Test Item Value Reference Range Interpretation Comments UA Sq Epi (test code = None Seen (06/14/16 2:52 UA Sq Epi) PM) [facility] AND [id number] 20:52:00 Test Item Value Reference Range Interpretation Comments UA Urobilinogen (test code = UA 0.2 0.1-1.0 Urobilinogen) [facility] AND [id number] 20:52:00 Test Item Value Reference Range Interpretation Comments UA Nitrite (test code Negative (06/14/16 2:52 = UA Nitrite) PM) [facility] AND [id number] 20:52:00 Test Item Value Reference Range Interpretation Comments UA Leuk Est (test Negative (06/14/16 2:52 code = UA Leuk Est) PM) [facility] AND [id number] 20:52:00 Test Item Value Reference Range Interpretation Comments UA Turbidity (test code = Clear (06/14/16 2:52 UA Turbidity) PM) [facility] AND [id number] 20:52:00 Test Item Value Reference Range Interpretation Comments UA Ketones (test code = UA Negative mg/dL Ketones) [facility] AND [id number] 20:52:00 Test Item Value Reference Range Interpretation Comments UA Protein (test code = UA Negative mg/dL Protein) [facility] AND [id number] 20:52:00 Test Item Value Reference Range Interpretation Comments UA Glucose (test code = UA Negative mg/dL Glucose) [facility] AND [id number] 20:52:00 Test Item Value Reference Range Interpretation Comments UA Bili (test code = Negative *NA*(06/14/16 UA Bili) 2:52 PM) [facility] AND [id number] 20:52:00 Test Item Value Reference Range Interpretation Comments UA Blood (test code = Negative (06/14/16 2:52 UA Blood) PM) [facility] AND [id number] 20:52:00 Test Item Value Reference Range Interpretation Comments UA Color (test code = Yellow *NA*(06/14/16 UA Color) 2:52 PM) [facility]2016-11-07 20:52:00 Test Item Value Reference Range Interpretation Comments UA pH (test code = UA pH) 7.0 1 5.0-8.0 [facility]2016-11-07 20:52:00 Test Item Value Reference Range Interpretation Comments UA Spec Grav (test code = UA Spec 1.010 1 Grav) [facility]NftfpkgLPTHSFLUFY6112-18-03 19:22:00 Test Item Value Reference Range Interpretation Comments RBC (test code = RBC) 4.76 4.70-6.10 [facility] CenterUasvaiwGSXULSGCGA9570-82-87 19:22:00 Test Item Value Reference Range Interpretation Comments MCV (test code = MCV) 88.5 80.0-94.0 [facility] CenterGjizqhyUMLBTWZAQJ5665-63-42 19:22:00 Test Item Value Reference Range Interpretation Comments Hct (test code = Hct) 42.1 42.0-54.0 [facility] CenterNczbwtnIKQHZFGTTV0096-88-35 19:22:00 Test Item Value Reference Range Interpretation Comments Hgb (test code = Hgb) 14.3 14.0-18.0 [facility] CenterHdzlcwdBKRNEKPIZX3352-06-84 19:22:00 Test Item Value Reference Range Interpretation Comments WBC (test code = WBC) 6.6 3.7-10.4 [facility] CenterKgbsyiyVPEXJUHTSJ2326-20-09 19:22:00 Test Item Value Reference Range Interpretation Comments MCHC (test code = MCHC) 34.0 32.0-36.0 [facility] CenterIwarunnGJVVSUJZKI3719-03-27 19:22:00 Test Item Value Reference Range Interpretation Comments MCH (test code = MCH) 30.1 pg 27.0-31.0 [facility] CenterRgykpqsPCAPAQOJNY6579-20-24 19:22:00 Test Item Value Reference Range Interpretation Comments Platelet (test code = Platelet) 127 133-450 [facility] CenterPhtweocKUQNOBXPRN3685-10-96 19:22:00 Test Item Value Reference Range Interpretation Comments RDW (test code = RDW) 14.1 11.5-14.5 [facility] CenterUwyexzxLWWYOEKQHK8868-65-30 19:22:00 Test Item Value Reference Range Interpretation Comments MPV (test code = MPV) 9.1 7.4-10.4 [facility] CenterGshozcsOYTFZVHOZG8283-94-64 19:22:00 Test Item Value Reference Range Interpretation Comments Eosinophils # (test code 0.2 See_Comment [A utomated message] The = Eosinophils #) system whic h generated this result tra nsmitted reference range : <=0.5. The reference r jennifer was not used to int erpret this result as normal/abnormal . [facility] CenterJzrbdqsGMEKLXGDYN8588-76-15 19:22:00 Test Item Value Reference Range Interpretation Comments Lymphocytes # (test code = Lymphocytes 1.3 1.0-5.5 #) [facility] CenterTckocgcZETAKBNJCA9952-25-77 19:22:00 Test Item Value Reference Range Interpretation Comments Monocytes # (test code 0.6 See_Comment [Aut omated message] The = Monocytes #) system which generated this result tra nsmitted reference range : <=0.8. The reference r jennifer was not used to int erpret this result as normal/abnormal . [facility] CenterVtuoxgqVBKQYWAPTN3996-95-78 19:22:00 Test Item Value Reference Range Interpretation Comments Basophils (test code = 0.4 See_Comment [Aut omated message] The Basophils) system which ge nerated this result tra nsmitted reference range : <=1.0. The reference r jennifer was not used to int erpret this result as normal/abnormal . [facility] CenterNhxyjemCEFUGUWCEQ6453-48-89 19:22:00 Test Item Value Reference Range Interpretation Comments Eosinophils (test code = 3.6 See_Comment [A utomated message] The Eosinophils) system which ge nerated this result tra nsmitted reference range : <=4.0. The reference r jennifer was not used to int erpret this result as normal/abnormal . [facility] CenterGgyjeurKUYUPIGYQH1995-14-16 19:22:00 Test Item Value Reference Range Interpretation Comments Segs-Bands # (test code = Segs-Bands #) 4.4 1.5-8.1 [facility] CenterVrwgznsJSCTZZFEXY0414-88-32 19:22:00 Test Item Value Reference Range Interpretation Comments Segs (test code = Segs) 67.5 45.0-75.0 [facility] CenterFbddscfZNRFMHQWAW5037-04-75 19:22:00 Test Item Value Reference Range Interpretation Comments Lymphocytes (test code = Lymphocytes) 19.4 20.0-40.0 [facility] CenterDgmcwytAOOBLZYXVT5568-85-51 19:22:00 Test Item Value Reference Range Interpretation Comments Monocytes (test code = Monocytes) 9.1 2.0-12.[address] [facility] [place], TxCARDIAC [id number] 19:21:00 Test Item Value Reference Range Interpretation Comments Troponin-I (test code no gt See_Comment [Auto mated message] The = Troponin-I) system which g enerated this result transmit oriana reference range : <=0.40. The reference r jennifer was not used to interpr et this result as ana l/abnormal. [facility]2016-11-07 19:21:00 Test Item Value Reference Range Interpretation Comments eGFR (test code = eGFR) 77 [facility]2016-11-07 19:21:00 Test Item Value Reference Range Interpretation Comments Glucose Lvl (test code = Glucose Lvl) 93 70-99 [facility]2016-11-07 19:21:00 Test Item Value Reference Range Interpretation Comments BUN (test code = BUN) 11 7-22 [facility]2016-11-07 19:21:00 Test Item Value Reference Range Interpretation Comments Potassium Lvl (test code = Potassium 4.3 3.5-5.1 Lvl) [facility]2016-11-07 19:21:00 Test Item Value Reference Range Interpretation Comments Creatinine Lvl (test code = Creatinine 0.96 0.50-1.40 Lvl) [facility]2016-11-07 19:21:00 Test Item Value Reference Range Interpretation Comments Sodium Lvl (test code = Sodium Lvl) 138 135-145 [facility]2016-11-07 19:21:00 Test Item Value Reference Range Interpretation Comments Chloride Lvl (test code = Chloride Lvl) 101 95-109 [facility]2016-11-07 19:21:00 Test Item Value Reference Range Interpretation Comments CO2 (test code = CO2) 25 24-32 [facility]2016-11-07 19:21:00 Test Item Value Reference Range Interpretation Comments Calcium Lvl (test code = Calcium Lvl) 8.6 8.5-10.5 [facility]2016-11-07 19:21:00 Test Item Value Reference Range Interpretation Comments AGAP (test code = AGAP) 16.3 10.0-20.0 [facility] CenterTcwstbbMSOWPVBJJJ7250-34-47 19:21:00 Test Item Value Reference Range Interpretation Comments PTT (test code = PTT) 28.3 s 22.9-35.8 [facility] CenterHyyvpeeDKMRWDKDKN4790-72-10 19:21:00 Test Item Value Reference Range Interpretation Comments PT (test code = PT) 14.0 s 12.0-14.7 [facility] CenterWnphhnzKYWUSCOVSJ6951-37-60 19:21:00 Test Item Value Reference Range Interpretation Comments INR (test code = INR) 1.06 0.85-1.[address] [facility] [place]
[2022-02-02] MEDS ORDERED: NITROGLYCERIN 0.4 MG/TAB SL ONE (10:42)
[2022-02-02 10:46] LABS: Absolute Lymphocytes (CBC) 1.2 K/uL (0.7-4.9); Hematocrit 35.8 % (39.6-49.0); Lymphocytes % 23.2 % (15.3-44.8); MCV 86.1 fL (80-100); MPV 8.7 fL (7.6-11.3); RBC Red Blood Cell Count 4.15 M/uL (4.33-5.43)
[2022-02-02 10:50] LABS: Protime INR 1.43
[2022-02-02 11:06] LABS: Albumin 3.3 g/dL (3.4-5.0); Bilirubin Direct 0.2 mg/dL (0-0.2); Bilirubin Total 0.5 mg/dL (0.2-1.0); Magnesium 2.3 mg/dL (1.8-2.4); Protein, Total 6.3 g/dL (6.4-8.2); Troponin High Sensitivity 12.7 pg/mL (<58.9)
--- NOTE | 2022-02-02 11:07 | RAD REPORT ---
EXAM DESCRIPTION: RAD - Chest Single View - 02/02/2022 10:54 am CLINICAL HISTORY: CHEST PAIN COMPARISON: October 2019 TECHNIQUE: AP portable chest image was obtained 02/02/2022 10:54 am . FINDINGS: No focal lung parenchymal process identifiable. Increased density in the upper right lung field is believed to be the anterior margin of the right third rib. This is similar to the comparison . Loop recorder remains in place. Sternotomy wires are still present. Hilar regions within normal limits. Heart and vasculature are normal. No measurable pleural effusion and no pneumothorax. No acute bony abnormality seen. No acute aortic findings suspected. IMPRESSION: No acute cardiopulmonary process. No significant change from comparison study.
--- NOTE | 2022-02-02 13:31 | ER ---
Nurse's Notes [facility] Name: Chan White Age: 82 yrs Sex: Male : 1940 Arrival Date: 02/02/2022 Time: 10:02 Bed 6 Private MD: Diagnosis: Chest pain, unspecified Presentation: 02/02 10:02 Chief complaint: Patient states: chest pain that began yesterday afternoon, is ss continuous. Coronavirus screen: Client denies travel out of the [place] in the last 14 days. Ebola Screen: Patient denies exposure to infectious person. Patient denies travel to an Ebola-affected area in the 21 days before illness onset. Initial Sepsis Screen: Does the patient meet any 2 criteria? No. Patient's initial sepsis screen is negative. Does the patient have a suspected source of infection? No. Patient's initial sepsis screen is negative. Risk Assessment: Do you want to hurt yourself or someone else? Patient reports no desire to harm self or others. Onset of symptoms was February 01, 2022. 10:02 Method Of Arrival: Ambulatory ss 10:02 Acuity: RENY 3 ss Triage Assessment: 10:05 General: Appears in no apparent distress. comfortable, Behavior is calm, cooperative, bp appropriate for age. Pain: Complains of pain in chest. EENT: No deficits noted. Neuro: No deficits noted. Cardiovascular: Reports chest pain. Respiratory: No deficits noted. GI: No signs and/or symptoms were reported involving the gastrointestinal system. : No signs and/or symptoms were reported regarding the genitourinary system. Derm: No deficits noted. Musculoskeletal: No deficits noted. Historical: - Allergies: 10:03 Morphine; ss 10:03 PENICILLINS; ss - Home Meds: 10:05 allopurinol 300 mg Oral tab 1 tab once daily [Active]; amlodipine 5 mg tab 1 tab once bp daily [Active]; atorvastatin 20 mg Oral tab 1 tab once daily [Active]; clopidogrel 75 mg Oral tab 1 tab once daily [Active]; furosemide 20 mg Oral tab 1 tab once daily [Active]; isosorbide dinitrate 60 mg Oral TbER 1 cap 2 times per day [Active]; levothyroxine 100 mcg tab 1 tab once daily [Active]; lisinopril 20 mg Oral tab 1 tab once daily [Active]; meloxicam 15 mg Oral tab 1 tab once daily [Active]; metoprolol succinate 25 mg Oral Tb24 0.5 tab daily [Active]; Nitrostat 0.4 mg SL subl 1 tab [Active]; pantoprazole 40 mg Oral TbEC 1 tab once daily [Active]; - PMHx: 10:03 carpal tunnel; Cholelithiasis; doudenal ulcer; Hernia; knee surgery; stroke; TIA; ss - Immunization history:: Client reports receiving the 2nd dose of the Covid vaccine. - Social history:: Smoking status: Patient denies any tobacco usage or history of. Screenin:05 Abuse screen: Denies threats or abuse. Denies injuries from another. Nutritional bp screening: No deficits noted. Tuberculosis screening: No symptoms or risk factors identified. Fall Risk None identified. Assessment: 10:05 General: SEE TRIAGE NOTE. bp 10:05 Pain: Pain does not radiate. Pain began suddenly, 1 day ago. bp 12:00 Reassessment: No changes from previously documented assessment. Patient and/or family bp updated on plan of care and expected duration. Pain level reassessed. 14:00 Reassessment: ADMIT INITIATED. bp 14:52 Reassessment: ADMIT COMPLETE, REPORT TO JAN RIVERA FOR RM 214. bp 14:56 Reassessment: PT NOW DECLINING ADMIT. ADVISED BY STAFF TO REMAIN FOR FURTHER MEDICAL bp CARE BUT REFUSING. ADVISED TO RETURN TO ER IF S/S RETURN OR WORSEN. PT AOx4, AMBULATORY WITH STEADY GAIT. Vital Signs: 10:02 BP 116 / 92; Pulse 78; Resp 16; Pulse Ox 98% on R/A; Weight 97.98 kg; Height 5 ft. 10 ss in. (177.80 cm); Pain 4/10; 10:04 Temp 97.7(TE); ss 11:00 BP 104 / 73; Pulse 70; Resp 10; Pulse Ox 96% ; bp 12:00 BP 117 / 83; Pulse 62; Resp 11; Pulse Ox 98% ; bp 13:00 BP 106 / 63; Pulse 68; Resp 17; Pulse Ox 97% ; bp 14:00 BP 121 / 90; Pulse 60; Resp 17; Pulse Ox 100% ; bp 14:51 BP 128 / 78; Pulse 71; Resp 19; Pulse Ox 100% ; bp 10:02 Body Mass Index 30.99 (97.98 kg, 177.80 cm) ED Course: 10:02 Patient arrived in ED. ss 10:03 Triage completed. ss 10:03 Arm band placed on left wrist. ss 10:05 Patient has correct armband on for positive identification. Bed in low position. Call bp light in reach. Side rails up X2. Client placed on continuous cardiac and pulse oximetry monitoring. NIBP monitoring applied. 10:05 Patient maintains SpO2 saturation greater than 95% on room air. bp 10:07 Moshe Langford NP is PHCP. pm1 10:07 Mayur Francisco MD is Attending Physician. pm1 10:19 Gilmer Christopher, RN is Primary Nurse. bp 10:30 EKG done, by ED staff, reviewed by Moshe Langford NP. dh3 10:38 Initial lab(s) drawn, by mi, sent to lab. Inserted saline lock: 20 gauge in right dh3 forearm, using aseptic technique. Blood collected. 10:56 XRAY Chest (1 view) In Process Unspecified. EDMS 13:30 Dudley Kim is Hospitalizing Provider. pm1 14:50 No provider procedures requiring assistance completed. Patient admitted, IV remains in bp place. 14:57 IV discontinued, intact, bleeding controlled, No redness/swelling at site. Pressure bp dressing applied. Administered Medications: 10:40 Drug: Nitroglycerin 0.4 mg Route: Sublingual; bp 14:24 Follow up: Response: No adverse reaction bp Medication: 14:54 VIS not applicable for this client. bp Outcome: 13:30 Decision to Hospitalize by Provider. pm1 14:52 Admitted to Med/surg accompanied by kaylene, via wheelchair, room 214, with chart, Report bp called to JAN RIVERA 14:52 Condition: stable 14:52 Instructed on the need for admit. 15:12 AMA AMA form signed bp 15:13 Patient left the ED. bp Signatures: Dispatcher [employer] EDIN Pratima Hernandez, NICOLE RIVERA Moshe Langford NP LAUNCH ENGINEER pm1 Felicia Meneses 3 Gilmer Christopher, NICOLE RN bp
--- NOTE | 2022-02-02 13:31 | EDPHYS ---
Physician Documentation [facility] Name: Chan White Age: 82 yrs Sex: Male : 1940 Arrival Date: 02/02/2022 Time: 10:02 Bed 6 Private MD: ED Physician Mayur Francisco HPI: 02/02 10:21 This 82 yrs old Male presents to ER via Ambulatory with complaints of Chest Pain. pm1 10:21 The patient or guardian reports chest pain that is located primarily in the anterior pm1 aspect of left upper chest. 10:21 Onset: yesterday, and then worse this AM at 0300. The pain does not radiate. Associated pm1 signs and symptoms: Pertinent positives: headache, Pertinent negatives: abdominal pain, cough, nausea, shortness of breath, vomiting. The chest pain is described as a pressure. Duration: The patient or guardian reports a single episode, that is still ongoing. Modifying factors: The symptoms are alleviated by nothing. the symptoms are aggravated by nothing. Severity of pain: in the emergency department the pain is unchanged. The patient has experienced similar episodes in the past, Patient with a history of 9 stents. The patient has not recently seen a physician. 10:21 Patient took nitro x 1 at 0300 without any relief. Did not take any medications for pm1 pain but took all his morning medications as scheduled . Historical: - Allergies: 10:03 Morphine; ss 10:03 PENICILLINS; ss - Home Meds: 10:05 allopurinol 300 mg Oral tab 1 tab once daily [Active]; amlodipine 5 mg tab 1 tab once bp daily [Active]; atorvastatin 20 mg Oral tab 1 tab once daily [Active]; clopidogrel 75 mg Oral tab 1 tab once daily [Active]; furosemide 20 mg Oral tab 1 tab once daily [Active]; isosorbide dinitrate 60 mg Oral TbER 1 cap 2 times per day [Active]; levothyroxine 100 mcg tab 1 tab once daily [Active]; lisinopril 20 mg Oral tab 1 tab once daily [Active]; meloxicam 15 mg Oral tab 1 tab once daily [Active]; metoprolol succinate 25 mg Oral Tb24 0.5 tab daily [Active]; Nitrostat 0.4 mg SL subl 1 tab [Active]; pantoprazole 40 mg Oral TbEC 1 tab once daily [Active]; - PMHx: 10:03 carpal tunnel; Cholelithiasis; doudenal ulcer; Hernia; knee surgery; stroke; TIA; ss - Immunization history:: Client reports receiving the 2nd dose of the Covid vaccine. - Social history:: Smoking status: Patient denies any tobacco usage or history of. ROS: 10:21 Constitutional: Negative for fever, chills, and weight loss. pm1 10:21 Respiratory: Negative for shortness of breath, cough, wheezing, and pleuritic chest pain, Abdomen/GI: Negative for abdominal pain, nausea, vomiting, diarrhea, and constipation, Back: Negative for injury and pain, MS/Extremity: Negative for injury and deformity, Skin: Negative for injury, rash, and discoloration. 10:21 Cardiovascular: Positive for chest pain, Negative for edema, palpitations. 10:21 Neuro: Positive for headache, Negative for dizziness, numbness, tingling. 10:21 All other systems are negative. Exam: 10:21 Constitutional: This is a well developed, well nourished patient who is awake, alert, pm1 and in no acute distress. Head/Face: Normocephalic, atraumatic. 10:21 Skin: Warm, dry with normal turgor. Normal color with no rashes, no lesions, and no evidence of cellulitis. MS/ Extremity: Pulses equal, no cyanosis. Neurovascular intact. Full, normal range of motion. 10:21 Cardiovascular: Exam negative for acute changes, Rate: normal, Rhythm: regular, Pulses: no pulse deficits are appreciated, Heart sounds: normal, normal S1and S2, Edema: is not appreciated. 10:21 Respiratory: Exam negative for acute changes, respiratory distress, shortness of breath, Breath sounds: are clear throughout. 10:21 Abdomen/GI: Inspection: abdomen appears normal, Palpation: abdomen is soft and non-tender, in all quadrants. 10:21 Neuro: Exam negative for acute changes, Orientation: is normal, Mentation: is normal, Cranial nerves: CN II- XII are normal as tested, Cerebellar function: normal finger to nose testing, Motor: is normal, moves all fours. Vital Signs: 10:02 BP 116 / 92; Pulse 78; Resp 16; Pulse Ox 98% on R/A; Weight 97.98 kg; Height 5 ft. 10 ss in. (177.80 cm); Pain 4/10; 10:04 Temp 97.7(TE); ss 11:00 BP 104 / 73; Pulse 70; Resp 10; Pulse Ox 96% ; bp 12:00 BP 117 / 83; Pulse 62; Resp 11; Pulse Ox 98% ; bp 13:00 BP 106 / 63; Pulse 68; Resp 17; Pulse Ox 97% ; bp 14:00 BP 121 / 90; Pulse 60; Resp 17; Pulse Ox 100% ; bp 14:51 BP 128 / 78; Pulse 71; Resp 19; Pulse Ox 100% ; bp 10:02 Body Mass Index 30.99 (97.98 kg, 177.80 cm) ss MDM: 10:07 Patient medically screened. pm1 13:29 Data reviewed: vital signs. Data interpreted: Pulse oximetry: on room air is 98 %. pm1 Interpretation: normal. Counseling: I had a detailed discussion with the patient and/or guardian regarding: the historical points, exam findings, and any diagnostic results supporting the discharge/admit diagnosis, lab results, radiology results, the need for further work-up and treatment in the hospital. 13:36 ED course: Consultation with [facility] for admission. Will see patient in the ER shortly. pm02/02 10:19 Order name: Basic Metabolic Panel; Complete Time: 11:10 pm02/02 10:19 Order name: CBC with Diff; Complete Time: 10:59 pm02/02 10:19 Order name: LFT's; Complete Time: 11:10 pm02/02 10:19 Order name: Magnesium; Complete Time: 11:10 pm02/02 10:19 Order name: NT PRO-BNP; Complete Time: 11:10 pm02/02 10:19 Order name: PT-INR; Complete Time: 10:59 pm02/02 10:19 Order name: Troponin HS; Complete Time: 11:10 pm02/02 10:19 Order name: XRAY Chest (1 view); Complete Time: 11:10 pm02/02 10:19 Order name: EKG; Complete Time: 10:20 pm02/02 10:19 Order name: Cardiac monitoring; Complete Time: 10:27 pm02/02 10:19 Order name: EKG - Nurse/Tech; Complete Time: 10:27 pm02/02 10:20 Order name: COVID-19 SARS RT PCR (Document "Date of Onset" if Symptomatic); Complete pm1 Time: 13:26 02/02 13:55 Order name: Heart Healthy EDKY 02/02 10:19 Order name: IV Saline Lock; Complete Time: 11:11 pm1 02/02 10:19 Order name: Labs collected and sent; Complete Time: 11:11 pm1 02/02 10:19 Order name: O2 Per Protocol; Complete Time: 10:27 pm1 02/02 10:19 Order name: O2 Sat Monitoring; Complete Time: 10:27 pm1 Administered Medications: 10:40 Drug: Nitroglycerin 0.4 mg Route: Sublingual; bp 14:24 Follow up: Response: No adverse reaction bp Disposition: 18:03 Co-signature as Attending Physician, Mayur rFancisco MD. rn Disposition Summary: 02/02/22 13:30 Hospitalization Ordered Hospitalization Status: Observation pm1 Provider: Dudley Kim 1 Location: Telemetry/MedSurg (observation) pm1 Condition: Stable pm1 Problem: new pm1 Symptoms: have improved pm1 Bed/Room Type: Standard pm1 Room Assignment: 214(02/02/22 13:59) ja1 Diagnosis - Chest pain, unspecified pm1 Forms: - Medication Reconciliation Form pm1 - SBAR form pm1 Signatures: Dispatcher [employer] Mayur Driscoll MD MD rn Smirch, Shelby, RN RN ss Moshe Langford, JOSEPH [employer] pm1 Shaheen Walker RN RN ja1 Gilmer Christopher RN RN bp Corrections: (The following items were deleted from the chart) 13:59 13:30 pm1 ja1
[2022-02-02] MEDS ORDERED: HYDROCODONE/APAP 5/325 MG TAB PO PRN (13:52)
--- NOTE | 2022-02-02 15:22 | P.HP ---
Date of Service: 02/02/22 (Admission cancelled. Patient wants to leave AMA. ER provider notified )
[2022-02-02 15:51] VITALS: TEMP 97.7
[2022-02-02 15:57] VITALS: O2SAT 100
[2022-02-02 15:59] VITALS: BP 128/78
--- NOTE | 2022-02-03 12:56 | EKG ---
Test Date: 2022-02-02 Test Time: 10:28:20 Doctor Of Audiology: KIM MEASUREMENT RESULTS: Intervals: Rate: 66 CT: QRSD: 90 QT: 448 QTc: 469 Vernon: P: CT: QRS: 19 T: 83 INTERPRETIVE STATEMENTS: Atrial fibrillation Nonspecific T wave abnormality Prolonged QT Abnormal ECG Compared to ECG 10/24/2019 21:39:56 T-wave abnormality now present Prolonged QT interval now present Sinus rhythm no longer present Ventricular premature complex(es) no longer present Left ventricular hypertrophy no longer present Myocardial infarct finding no longer present Electronically Signed On 02-03-22 12:55:10 CDT by Saman Freedman
== END 2022-02-02 15:14 | disposition left against medical advice (07) | DRG 313 ==
LOC: ER 09:59 → ERHOLD 13:48 → 2ND 14:52
PROVIDERS: ADMIT Internal Medicine; ATTEND Internal Medicine
DX: R07.9 Chest pain, unspecified (principal); Z53.21 Procedure and treatment not carried out due to patient leaving prior to being seen by health care provider; Z79.899 Other long term (current) drug therapy; Z88.5 Allergy status to narcotic agent; Z88.0 Allergy status to penicillin; Z86.73 Personal history of transient ischemic attack (TIA), and cerebral infarction without residual deficits; Z20.822 Contact with and (suspected) exposure to COVID-19
CPT/HCPCS: 36415; 71045; 80048; 80076; 83735; 83880; 84484; 85025; 85610; 93005; 99285; U0003